=== PATIENT | female | born 1955 | race Caucasian/White ===

== ENCOUNTER 2020-01-09 12:27 | Emergency (ER) | payer BC, SELFPAY ==
[2020-01-09 12:34] VITALS: BP 169/71; PULSE 86; RESP 20; TEMP 36.8; O2SAT 95; BMI 29.7
--- NOTE | 2020-01-09 13:16 | ED.SKABFB ---
HPI - Skin/Abscess/Foreign Bdy General Chief complaint: Skin/Abscess/Foreign Body Stated complaint: rash Time Seen by Provider: 01/09/20 12:43 Source: patient Mode of arrival: ambulatory Limitations: no limitations History of Present Illness HPI narrative: 64 yo female with past medical history of DAVID, HLD, OA, DM here with rash to face x 4 days. Patient initially noticed some burning to the left side her face and then the next day noticed a painful rash on the left side of the face. No flu-like symptoms or fevers or chills or body aches. No vision changes or pain. MD complaint: rash Tetanus up to date: yes Location: face Severity: mild Quality: burning Pain Consistency: constant Relieving factors: none Exacerbating factors: none Context: none Associated symptoms: denies other symptoms Treatments prior to arrival: none Related Data Previous Rx's Medication Instructions Recorded omeprazole 40 mg capsule,delayed 40 mg PO QAM #30 cap 12/24/19 release sitagliptin 100 mg tablet 100 mg PO DAILY #90 tab 01/04/20 valacyclovir [Valtrex] 1,000 mg PO TID 7 Days #21 tab 01/09/20 Allergies Allergy/AdvReac Type Severity Reaction Status Date / Time amoxicillin [AMOXICILLIN] Allergy Intermediate RASH Unverified 12/03/19 15:14 Penicillins [PENICILLINS] Allergy Intermediate RASH Unverified 12/03/19 15:14 sulfamethoxazole Allergy Intermediate RASH Unverified 12/03/19 15:14 [From BACTRIM] trimethoprim [From BACTRIM] Allergy Intermediate RASH Unverified 12/03/19 15:14 penicillin V Allergy Unknown hives Unverified 11/17/19 00:00 Sulfa (Sulfonamide Allergy Unknown RASH, hives Unverified 12/03/19 15:14 Antibiotics) [SULFA (SULFONAMIDE ANTIBIOTICS)] Review of Systems Review of Systems: Yes all other systems are reviewed and are negative Constitutional: Constitutional: Reports no additional constitutional complaints, Denies body ache(s), Denies chills, Denies fever(s), Denies headache(s) and Denies weakness Eyes: Eyes: Reports no additional eye complaints, Denies change in vision, Denies eye discharge, Denies eye pain and Denies photophobia ENT: Reports system reviewed and no additional complaints, except as documented, Denies dizziness, Denies headache(s), Denies nasal congestion, Denies nasal discharge and Denies neck pain Cardiovascular: Cardiovascular: Reports no additional cardiovascular complaints, Denies chest pain, Denies leg edema and Denies dyspnea Respiratory: Respiratory: Reports no additional respiratory complaints, Denies cough and Denies dyspnea Gastrointestinal: Gastrointestinal: Reports no additional gastrointestinal complaints, Denies abdominal pain, Denies diarrhea, Denies nausea and Denies vomiting Genitourinary: Genitourinary: Reports no additional female genitourinary complaints and Denies urinary incontinence Musculoskeletal: Musculoskeletal: Reports no additional musculoskeletal complaints, Denies back pain, Denies arthralgias, Denies joint swelling, Denies neck pain, Denies numbness and Denies tingling Integumentary/Breasts: Skin/Breast: Reports system reviewed and no additional complaints, except as docu and Reports rash Neurologic: Reports system reviewed and no additional complaints, except as documented, Denies Abnormal speech present, Denies dizziness, Denies headache(s), Denies numbness, Denies tingling and Denies weakness [facility] Past Medical History Attestation statement: The following information was validated with the patient. Source: obtained from family and nursing notes reviewed Medical History Anemia Carpal tunnel syndrome of left wrist Colon polyp Diabetes Hyperlipidemia Internal hemorrhoid, bleeding Osteoarthritis Surgical History H/O colonoscopy Tubal ligation status Social History Social History Alcohol intake: never Smoking Status: Never smoker Use of substances other than those prescribed or required for medical reasons: No Advance Directives: No Advance Directives Information Provided: No Physical Exam Vital Signs: Vital Signs: Vital Signs Temp Pulse Resp BP Pulse Ox 01/09/20 12:34 98.2 F 86 20 169/71 H 95 Body Mass Index 29.7 Const: General: cooperative, healthy appearing, comfortable and no acute distress Orientation/consciousness: patient oriented x3 Limitations: no limitations HENMT: Head: Yes normal to inspection Ears: hearing grossly normal bilaterally General nose exam: Normal external nose present Face and sinus: Yes normal facial exam Mouth: Normal oral and palatal mucosa present Throat: Yes posterior oropharynx normal Eyes: Other: see visual acuity documented by nursing. No obvious lesion or ulcer noted. General: appearance normal, both eyes and all related structures Visual Woodard: normal visual woodard by confrontation Alignment and Position: alignment normal Periorbital: periorbital findings normal Eyelids: Yes eyelids normal Conjunctivae: conjunctivae normal Sclerae: sclerae normal Corneas: corneas normal and fluorescein used Pupils: Equal, round and reactive pupils present EOM: EOMs intact bilaterally Direct Ophthalmoscopy: normal light reflex, no photophobia, fundi normal bilaterally, anterior chamber normal and No photophobia Neck: Neck: Yes normal visual inspection Thyroid: solitary palpable nodule ( ) on the left Chest: Chest palpation & inspection: normal inspection of the chest Resp: Effort & Inspection: normal respiratory effort Auscultation: clear to auscultation bilaterally Cardio: Rate: regular rate Rhythm: regular rhythm Peripheral pulses: Peripheral pulses 2+ throughout GI: Inspection: Yes normal to inspection Palpation (GI): Soft to palpation and nontender Auscultation: normal bowel sounds Back/Spine/Pelvis: Thoracic/Lumbar Spine: thoracic and lumbar spine normal to inspection Skin: Other: Along the V1 dermatome there is a vesicle like rash which extends from the left upper eyelid back to the scalp. There is some clear drainage from the lesions. There is no obvious lesions noted around the periorbital area. General skin exam: no rashes or lesions noted Neuro: General: patient oriented x3, no focal motor deficits and normal sensation to monofilament Cranial nerves: Yes Equal, round and reactive pupils present Cognition (Neuro): normal cognition Speech: No Abnormal speech present Gait exam (Neuro): Normal gait present Motor exam (neuro): 5/5 motor strength present throughout Extrem: General: Yes normal to inspection Course Course Course Narrative: Patient has what appears to be herpes zoster on the face which is near the eye but the eyes spared. Normal eye exam and visual acuity. I did review with the patient that she should return to the emergency department immediately if she were to develop vision changes, pain or any visual complaints. Reviewed worrisome signs and symptoms and when to return to the emergency department. Comfortable discharge home. Discharge Plan Discharge Clinical Impression: Herpes zoster Qualifiers: Herpes zoster complications: unspecified herpes zoster complication Qualified Code(s): B02.8 - Zoster with other complications Patient Disposition: Home, Self-Care Instructions: Shingles (ED) Additional Instructions: Keep covered if wounds are draining Return for vision changes or complaints. Prescriptions: New valacyclovir [Valtrex] 1 gram tablet 1,000 mg PO TID 7 Days Qty: 21 RF: 0 No Action omeprazole 40 mg capsule,delayed release(DR/EC) 40 mg PO QAM Qty: 30 RF: 6 sitagliptin [Januvia] 100 mg tablet 100 mg PO DAILY Qty: 90 RF: 2 Referrals: Viviana Randolph MD [Primary Care Provider] - 2 days Stand Alone Forms: Work/School Release Interventions: ED Discharge Assessment Last Done: 01/09/20 13:32 Discharge Date/Time: 01/09/20 13:30
[2020-01-09] MEDS: Tetracaine HCl/PF 0.5% Oph Sol 4 ML DROPS 3 DROP EYE-LEFT (13:32)
[2020-01-09] MEDS: Fluorescein Sodium STRIP 1 STRIP EYE-LEFT (13:32)
== END 2020-01-09 13:30 | disposition home or self-care (01) ==
PROVIDERS: Emergency Provider Emergency Medicine; PCP Internal Medicine
DX: B02.8 Zoster with other complications (principal); R21 Rash and other nonspecific skin eruption; E11.9 Type 2 diabetes mellitus without complications; Z79.899 Other long term (current) drug therapy
CPT/HCPCS: 99283

== ENCOUNTER 2020-01-10 07:44 | Emergency (ER) | payer BC, SELFPAY ==
[2020-01-10 07:58] VITALS: BP 140/55; PULSE 75; RESP 16; TEMP 36.7; O2SAT 98; BMI 42.1
--- NOTE | 2020-01-10 08:08 | PC.NURSE ---
dr cramer at bedside for exam, visual acuity 20/25/left eye 20/30right eye with glasses
--- NOTE | 2020-01-10 08:39 | ED_ITS ---
HPI - Eye Problem General Chief complaint: Eye Problems Stated complaint: swollen eye Time Seen by Provider: 01/10/20 08:01 Source: patient Mode of arrival: ambulatory Limitations: no limitations History of Present Illness HPI Narrative: Patient comes to emergency room complaining of discomfort in her forehead in swelling of her left eye. Patient was diagnosed yesterday with shingles. Patient has no pain with eye movement, patient concerned that the swelling is going around her eye. Patient states she was unable to sleep due to the pain in her face Related Data Previous Rx's Medication Instructions Recorded omeprazole 40 mg capsule,delayed 40 mg PO QAM #30 cap 12/24/19 release sitagliptin 100 mg tablet 100 mg PO DAILY #90 tab 01/04/20 valacyclovir [Valtrex] 1,000 mg PO TID 7 Days #21 tab 01/09/20 gabapentin 100 mg PO TID #20 cap 01/10/20 oxycodone-acetaminophen [Percocet] 1 tab PO Q8H PRN #10 tab 01/10/20 Allergies Allergy/AdvReac Type Severity Reaction Status Date / Time amoxicillin [AMOXICILLIN] Allergy Intermediate RASH Unverified 12/03/19 15:14 Penicillins [PENICILLINS] Allergy Intermediate RASH Unverified 12/03/19 15:14 sulfamethoxazole Allergy Intermediate RASH Unverified 12/03/19 15:14 [From BACTRIM] trimethoprim [From BACTRIM] Allergy Intermediate RASH Unverified 12/03/19 15:14 penicillin V Allergy Unknown hives Unverified 11/17/19 00:00 Sulfa (Sulfonamide Allergy Unknown RASH, hives Unverified 12/03/19 15:14 Antibiotics) [SULFA (SULFONAMIDE ANTIBIOTICS)] Review of Systems Review of Systems: Constitutional : No Weight loss, No Fever, No Chills, No Night Sweats, No Fatigue, No Malaise ENT/Mouth : No Hearing loss, No Ear Pain, No Nasal Congestion, No Sinus Pain, No Hoarseness, No sore throat, No Rhinorrhea, No Swallowing Difficulty Eyes: left eyelid pain Cardiovascular : No Chest Pain, No SOB, No Dyspnea on Exertion, No Orthopnea, No Edema, No Palpitations Respiratory : No Cough, No Sputum, No Wheezing, No Smoke Exposure, No Dyspnea Gastrointestinal : No Nausea, No Vomiting, No Diarrhea, No Constipation, No abdominal Pain, No Hematochezia, No Melena Genitourinary : no irregular bleeding, No Dysuria, No Urinary Frequency, No Hematuria, No Urinary Incontinence, No Urgency, No Flank Pain, No Urinary Flow Changes, No Hesitancy Musculoskeletal : No joint pain, No Myalgias, No Joint Swelling Skin : shingles rash in left forehead Neuro : No Weakness, No Numbness, No Paresthesias, No Loss of Consciousness, No Dizziness, No Headache Psych : No Anxiety/Panic, No Depression, No SI/HI/AH/VH, No Social Issues, Heme/Lymph: No Bruising, No Bleeding,No Lymphadenopathy Endocrine : No Polyuria, No Polydipsia, No Temperature Intolerance [facility] Past Medical History Medical History (Updated 01/10/20 @ 08:58 by Astrid Rodriguez MD) Anemia Carpal tunnel syndrome of left wrist Colon polyp Diabetes Hyperlipidemia Internal hemorrhoid, bleeding Osteoarthritis Shingles Surgical History H/O colonoscopy Tubal ligation status Social History Social History Alcohol intake: never Smoking Status: Never smoker Use of substances other than those prescribed or required for medical reasons: No Advance Directives: No Advance Directives Information Provided: No Physical Exam Vital Signs: Vital Signs: Vital Signs Temp Pulse Resp BP Pulse Ox 01/10/20 07:58 98.1 F 75 16 140/55 H 98 Body Mass Index 42.1 Appearance: Alert. Oriented X3. No acute distress. Eyes: Pupils equal, round and reactive to light. on fluorescein stain exam, no dendritic lesions or ulcers visualized, visual acuity test within normal limits ENT: Pharynx normal. no shingles rash in nose or ear canal Neck: Normal inspection. Neck supple. No lymph nodes noted. No crepitus CVS: Normal heart rate and rhythm. Pulses normal. Normal S1 and S2 Respiratory: No respiratory distress. Breath sounds normal. No Wheezing. No rales Abdomen: Soft and nontender. No rigidity. No distention. good BS x4 Skin: Skin warm and dry. Normal skin color. Normal skin turgor. Extremities: No lower extremity edema. No lower extremity edema. No Lacerations. No Rash Neuro: Oriented X 3. No motor deficit. No sensory deficit. Moving all extermities. No slurred speech. Course Course Course Narrative: I discussed with the patient that unfortunately eyelid swelling is common with facial shingles. I discussed her physical exam an eye exam, patient will follow-up with Dr. Abad, at this time, no concern for eye involvement. 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 Stop taking tramadol. 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 If anything changes with your eyes, Prescriptions: New oxycodone-acetaminophen [Percocet] 5-325 mg tablet 1 tab PO Q8H PRN (Reason: pain) Qty: 10 RF: 0 gabapentin 100 mg capsule 100 mg PO TID Qty: 20 RF: 0 No Action omeprazole 40 mg capsule,delayed release(DR/EC) 40 mg PO QAM Qty: 30 RF: 6 sitagliptin [Januvia] 100 mg tablet 100 mg PO DAILY Qty: 90 RF: 2 valacyclovir [Valtrex] 1 gram tablet 1,000 mg PO TID 7 Days Qty: 21 RF: 0 Referrals: Edilson Abad [Physician] - 2 days Stand Alone Forms: Work/School Release
[2020-01-10] MEDS: Tetracaine HCl/PF 0.5% Oph Sol 4 ML DROPS 3 DROP EYE-BOTH (08:43)
[2020-01-10] MEDS: Fluorescein Sodium STRIP 2 STRIP EYE-BOTH (08:44)
== END 2020-01-10 09:10 | disposition home or self-care (01) ==
PROVIDERS: Emergency Provider Emergency Medicine; PCP Internal Medicine
DX: B02.23 Postherpetic polyneuropathy (principal); E11.9 Type 2 diabetes mellitus without complications; E78.5 Hyperlipidemia, unspecified
CPT/HCPCS: 99283; 99284

== ENCOUNTER 2020-01-14 07:35 | Outpatient (REF) | payer BC, SELFPAY ==
[2020-01-14 11:26] LABS: Hematocrit 22.9 % (37-47); Mean Corpuscular HGB Conc 25.3 g/dl (31.0-35.0); Mean Corpuscular Hemoglobin 19.3 pg (27.0-33.0); Mean Corpuscular Volume 76.3 fL (80-98); Mean Platelet Volume 9.5 fL (9.4-12.3); NRBC Pct Auto 0.8 /100WBC (0.0-0.2); Platelet Count 419 X10*3/uL (160-400); Red Cell Distribution Width 21.3 % (11.0-16.0); White Blood Count 11.1 X10*3/uL (4.8-10.8)
[2020-01-14 11:39] LABS: Estimated Average Glucose 151 mg/dL; Hemoglobin A1c % 6.9 %
[2020-01-14 11:56] LABS: Alanine Aminotransferase 14 U/L (0-31); Anion Gap 16 (12-20); Aspartate Amino Transferase 17 U/L (5-31); Blood Urea Nitrogen 17 mg/dL (9-16); Calcium 8.4 mg/dL (8.4-10.2); Carbon Dioxide 25 mmol/L (22-29); Chloride 100 mmol/L (96-108); Cholesterol 98 mg/dL; Estimated Glomerular Filt Rate > 60; Glucose Fasting 139 mg/dL (60-99); HDL Cholesterol 29 mg/dL; Iron 17 mcg/dL (30-160); LDL Cholesterol Calculated 56 mg/dl; Percent Iron Saturation 4 % (15-50); Potassium 4.5 mmol/l (3.3-5.1); Sodium 136 mmol/L (135-145); Total Iron Binding Capacity 483 mcg/dL (228-428); Triglycerides 69 mg/dL; Unsaturated Iron Binding 466 ug/dL
[2020-01-14 11:59] LABS: Ferritin 2 ng/mL (10-250)
[2020-01-14 12:02] LABS: Hemoglobin 5.8 g/dl (12.0-16.0)
[2020-01-14 12:06] LABS: Folate 17.9 ng/mL (> or = 4.0); Vitamin B12 762 pg/mL (200-900)
== END 2020-01-14 07:36 | disposition home or self-care (01) ==
LOC: HO.HMGCLDS 07:35
PROVIDERS: PCP Internal Medicine; Visit Provider Internal Medicine
DX: D64.9 Anemia, unspecified (principal); E11.65 Type 2 diabetes mellitus with hyperglycemia; E78.5 Hyperlipidemia, unspecified
CPT/HCPCS: 36415; 80048; 80061; 82607; 82728; 82746; 83036; 83540; 84450; 84460; 85027

== ENCOUNTER 2020-01-14 14:50 | Inpatient (IN) | payer BC, SELFPAY ==
[2020-01-14 15:14] VITALS: BP 147/69; PULSE 83; RESP 18; TEMP 36.8; O2SAT 100; BMI 43.1
--- NOTE | 2020-01-14 16:11 | ED.GENADULT ---
HPI - General Adult General Chief complaint: General Medical Stated complaint: abnormal labs Time Seen by Provider: 01/14/20 15:58 Source: patient Mode of arrival: ambulatory Limitations: no limitations History of Present Illness HPI narrative: patient is a 64-year-old female past medical history of anemia, diabetes, HTN, osteoarthritis, hyperlipidemia and depression who presents after her PCP called her to let her know her labs showed she had a hemoglobin of 5.8. patient states she had a similar episode on November 16, her hemoglobin was 7.1 in this emergency department, she was given 1 unit red blood cells and admitted, found to have a normocytic anemia. At that time, her TSH was normal, IVC was elevated and iron, iron saturation and ferritin were all low. GI did an upper endoscopy and a colonoscopy which only showed polyps, diverticulosis and internal hemorrhoids, put her on a PPI and iron. patient states she does not know anything about the PPI but has been taking the iron daily. patient denies had any bleeding, she is postmenopausal. Pt endorses shortness of breath, increased heart rate and getting dizzy when she has positional changes such as bending over. Related Data Home Medications Medication Instructions Recorded Confirmed ferrous sulfate 1 tab PO DAILY 01/14/20 01/14/20 lisinopril 1 tab PO DAILY 01/14/20 01/14/20 metformin 1 tab PO BID 01/14/20 01/14/20 paroxetine HCl 1 tab PO QAM 01/14/20 01/14/20 rosuvastatin 1 tab PO DAILY 01/14/20 01/14/20 sitagliptin [Januvia] 1 tab PO DAILY 01/14/20 01/14/20 Previous Rx's Medication Instructions Recorded omeprazole 40 mg capsule,delayed 40 mg PO QAM #30 cap 12/24/19 release gabapentin 100 mg PO TID #20 cap 01/10/20 Allergies Allergy/AdvReac Type Severity Reaction Status Date / Time amoxicillin [AMOXICILLIN] Allergy Intermediate RASH Verified 01/14/20 15:22 penicillin V Allergy Intermediate hives Verified 01/14/20 15:22 Penicillins [PENICILLINS] Allergy Intermediate RASH Verified 01/14/20 15:22 Sulfa (Sulfonamide Allergy Intermediate RASH, hives Verified 01/14/20 15:22 Antibiotics) [SULFA (SULFONAMIDE ANTIBIOTICS)] sulfamethoxazole Allergy Intermediate RASH Verified 01/14/20 15:22 [From BACTRIM] trimethoprim [From BACTRIM] Allergy Intermediate RASH Verified 01/14/20 15:22 Review of Systems Review of Systems: see [facility] Past Medical History Medical History (Updated 01/14/20 @ 17:25 by Jp Todd MD) Anemia Carpal tunnel syndrome Carpal tunnel syndrome of left wrist Colon polyp Diabetes HTN (hypertension) Hyperlipidemia IBS (irritable bowel syndrome) Internal hemorrhoid, bleeding Osteoarthritis Shingles Surgical History H/O colonoscopy History of carpal tunnel surgery Tubal ligation status Social History Social History Alcohol intake: never Smoking Status: Never smoker Use of substances other than those prescribed or required for medical reasons: No Advance Directives: No Advance Directives Information Provided: No Physical Exam Vital Signs: Vital Signs: Vital Signs Temp Pulse Resp BP Pulse Ox 01/14/20 15:14 98.3 F 83 18 147/69 H 100 Body Mass Index 43.1 Const: General: cooperative, healthy appearing, comfortable and no acute distress Nutritional Appearance: obese Orientation/consciousness: patient oriented x3 Limitations: no limitations HENMT: Head: Yes normal to inspection Neck: Neck: Yes normal visual inspection, Yes full ROM and Yes supple Resp: Effort & Inspection: normal respiratory effort and able to speak in complete sentences Auscultation: clear to auscultation bilaterally, no crackles, no rales, no rhonchi and no wheezes Cardio: Rate: regular rate Rhythm: regular rhythm Heart sounds: S1 normal heart sound present and S2 normal heart sound present GI: Inspection: Yes normal to inspection Palpation (GI): Soft to palpation and nontender Skin: General skin exam: pallor Neuro: General: patient oriented x3 Psych: Appearance: grossly normal Course Course Course Narrative: 64-year-old female with past medical history of anemia, dm 2, HTN, HLD and a recent diagnosis of shingles came into the ER after her primary care doctor did labs which showed her hemoglobin was 5.8. Upon that redraw, it is 6.0. patient denies bleeding, had an outpatient workup EGD and colonoscopy which was negative. Will get labs, EKG, type & screen and give 2U PRBC. Pt signed transfusion authorization. Will need admission. Medical Decision Making Lab Data Lab results reviewed: Yes I reviewed the patient's lab results. Result diagrams: 01/14/20 17:17 01/14/20 17:17 Labs: cbc and chem resulted, as above, remainder of labs pending. Pt to be admitted.
--- NOTE | 2020-01-14 17:12 | P.HPIM_ITS ---
History of Present Illness Date of Service: 01/14/20 Chief Complaint: Anemia, fatigue 64 female, [place] with HTN, diabetes, HLD, HTN, IBS, chronic iron deficiency anemia who presents with symptomatic anemia and hemoglobin of 5. She was admitted to the hospital November 16 with anemia and at that time was transfused and discharged and subsequently underwent workup with EGD and colonoscopy by Dr. Bishop on November 25 and found to have some polyps, internal hemorrhoids, gastritis but no active bleeding was noted. She has since been on iron and PPI. Since that time she continued to be having fatigue, shortness of breath with exertion, and dizziness at time. She had outpatient lab work done and was noted to have hemoglobin of 5 and was told to go to the emergency room by her primary care doctor. She reports no NSAID use. And has not noted any blood in her stool no melena no hematochezia. Of note she was seen in ED on January 09 for shingles. Review of Systems Review of Systems: Gen: no fever, has fatigue Card: no chest pain, but get SOB with exertion GI: no diarrhea, no blood, no melana, Yes all other systems are reviewed and are negative [facility] Medical History (Updated 01/14/20 @ 21:50 by Maryuri Bernal DO) Anemia Carpal tunnel syndrome Carpal tunnel syndrome of left wrist Colon polyp Diabetes HTN (hypertension) Hyperlipidemia IBS (irritable bowel syndrome) Internal hemorrhoid, bleeding Osteoarthritis Shingles Functional capacity: independent ambulation Surgical History H/O colonoscopy History of carpal tunnel surgery Tubal ligation status Social History Household Members: Family Housing: House Alcohol intake: never Smoking Status: Never smoker Use of substances other than those prescribed or required for medical reasons: No Advance Directives: No Advance Directives Information Provided: No Do you have thoughts of harming others: None Meds Allergies Allergy/AdvReac Type Severity Reaction Status Date / Time amoxicillin [AMOXICILLIN] Allergy Intermediate RASH Verified 01/14/20 15:22 penicillin V Allergy Intermediate hives Verified 01/14/20 15:22 Penicillins [PENICILLINS] Allergy Intermediate RASH Verified 01/14/20 15:22 Sulfa (Sulfonamide Allergy Intermediate RASH, hives Verified 01/14/20 15:22 Antibiotics) [SULFA (SULFONAMIDE ANTIBIOTICS)] sulfamethoxazole Allergy Intermediate RASH Verified 01/14/20 15:22 [From BACTRIM] trimethoprim [From BACTRIM] Allergy Intermediate RASH Verified 01/14/20 15:22 Home Medications Medication Instructions Recorded Confirmed Type ferrous sulfate 1 tab PO DAILY 01/14/20 01/14/20 History lisinopril 1 tab PO DAILY 01/14/20 01/14/20 History metformin 1 tab PO BID 01/14/20 01/14/20 History paroxetine HCl 1 tab PO QAM 01/14/20 01/14/20 History rosuvastatin 1 tab PO DAILY 01/14/20 01/14/20 History sitagliptin [Januvia] 1 tab PO DAILY 01/14/20 01/14/20 History Physical Exam Vital Signs and Narrative: Vital Signs: Last Vital Signs Temp 98.3 F 01/14/20 15:14 Pulse 83 01/14/20 15:14 Resp 18 01/14/20 15:14 BP 147/69 H 01/14/20 15:14 Pulse Ox 100 01/14/20 15:14 Body Mass Index 43.1 Constitutional Awake and Alert, No apparent distress Neck Supple, No lymphadenopathy Cardiovascular RRR, No M/R/G, S1 S2, No S3 S4, No pedal edema Respiratory Lungs clear, No respiratory distress Gastrointestinal Non tender, Non-distended. rectal exam deffered Skin No rash Neurological Alert & oriented x3 Psychological Appropriate affect Assessment and Plan (1) Symptomatic anemia: Status: Acute (2) HTN (hypertension): Status: Acute (3) Hyperlipidemia: Status: Acute (4) Diabetes: Status: Acute (5) Shingles: Status: Acute 64 year female with chronic iron deficiency anemia, DM, HTN, HLD, presenting with acute symptomatic anemia with markedly low hemoglobin of 5. 1. Symptomatic iron deficiency anemia--exact source has not been elucidated despited las EGD and colonoscopy -Transfuse -Follow Serial H/H -IV PPI -Will consider IV iron -GI consult again ? need for capsul endoscopy 2. Diabetes--SSI, Hold Metformin for now 3. HTN--continue lisinopril 4. Depression--Paroxetine 5. Shingles--Acyclovir
[2020-01-14 17:25] LABS: MANUAL DIFF FLAG NO
[2020-01-14 17:27] LABS: Basophils Percent Auto 0.2 % (0-2); Eosinophils Absolute Auto 0.1 X10*3/uL (0.0-0.4); Hematocrit 23.2 % (37-47); Imm Gran Abs Auto 0.15 X10*3/uL (0.00-0.03); Imm Gran Pct Auto 1.1 % (0.0-0.4); Immature Retic Fraction 38.4 % (3.0-15.9); Lymphocytes Percent Auto 29.8 % (20-40); Mean Corpuscular HGB Conc 25.9 g/dl (31.0-35.0); Mean Corpuscular Hemoglobin 19.6 pg (27.0-33.0); Mean Corpuscular Volume 75.8 fL (80-98); Mean Platelet Volume 9.3 fL (9.4-12.3); Monocytes Absolute Auto 1.1 X10*3/uL (0.1-1.2); NRBC Pct Auto 0.8 /100WBC (0.0-0.2); Neutrophils Percent Auto 59.9 % (45-73); Platelet Count 437 X10*3/uL (160-400); Red Blood Count 3.06 X10*6/uL (4.20-5.50); Red Cell Distribution Width 21.2 % (11.0-16.0); Retic HGB Equivalent 15.2 pg (30.0-35.0); Reticulocyte Percent 2.6 % (0.5-1.8); Reticulocytes Absolute 0.079 X10*6/uL (0.026-0.095); White Blood Count 13.3 X10*3/uL (4.8-10.8)
[2020-01-14] MEDS: Sodium Chloride 0.45 % 1,000 ML 100 ML IVCONT (17:29)
[2020-01-14 17:53] LABS: Alanine Aminotransferase 15 U/L (0-31); Albumin Level 3.9 g/dL (3.5-5.0); Alkaline Phosphatase 138 U/L (39-117); Anion Gap 17 (12-20); Aspartate Amino Transferase 24 U/L (5-31); Bilirubin Direct 0.3 mg/dL (0.0-0.5); Bilirubin Total 0.9 mg/dL (0.0-1.0); Blood Urea Nitrogen 15 mg/dL (9-16); Carbon Dioxide 23 mmol/L (22-29); Chloride 102 mmol/L (96-108); Creatinine Clr Calc Pharmacy 111.2; Estimated Glomerular Filt Rate > 60; Glucose Random 109 mg/dL (60-115); Potassium 4.9 mmol/l (3.3-5.1); Sodium 137 mmol/L (135-145); Total Protein 7.4 g/dL (6.5-8.0)
[2020-01-14 18:14] LABS: Ferritin 2 ng/mL (10-250); TSH reflex Free T4 2.09 mIU/mL (0.32-4.0)
[2020-01-14 19:29] LABS: Erythrocyte Sedimentation Rate 45 MM/HR (0-20)
--- NOTE | 2020-01-14 19:53 | PC.NURSE ---
PT REPORT GIVEN TO FLOOR. CONSENT FOR BLOOD SIGNED. WILL START BLOOD BEFORE PT TRANSFERRED TO FLOOR.
[2020-01-14 20:05] LABS: Vitamin B12 773 pg/mL (200-900)
[2020-01-14 20:07] VITALS: BP 141/68; PULSE 84; RESP 16; TEMP 36.4
[2020-01-14 20:23] VITALS: BP 137/72; PULSE 87; RESP 16; TEMP 37.1
[2020-01-14 21:17] VITALS: BP 147/72; PULSE 85; RESP 19; TEMP 36.6; O2SAT 95
[2020-01-14 21:49] LABS: SARS COV2 PCR INHOUSE NEGATIVE (Negative)
[2020-01-14 22:02] VITALS: BP 160/81; PULSE 85; RESP 18; TEMP 36.4
[2020-01-14] MEDS: Pantoprazole Sodium 40 MG/10 ML VIAL IVPUSH (22:14)
[2020-01-14] MEDS: Gabapentin 100 MG CAPSULE PO (22:24)
[2020-01-14] MEDS: metFORMIN HCl 1,000 MG TABLET 1000 MG PO (22:25)
[2020-01-14] MEDS: Omeprazole 40 MG CAPSULE.DR PO (22:25)
[2020-01-14 22:33] LABS: Glucose, Whole Blood 141 mg/dL (60-115)
[2020-01-15] VITALS (7 sets, daily range): BP systolic 132–157; BP diastolic 56–77; PULSE 70–82; RESP 17–19; TEMP 36.2–37.2; O2SAT 93–96; BMI 43.1
[2020-01-15] MEDS: Acetaminophen 325 MG TABLET 650 MG PO ×2 (03:35→22:03)
[2020-01-15] MEDS: Sodium Chloride 0.45 % 1,000 ML 100 ML IVCONT (04:52)
[2020-01-15 07:25] LABS: Glucose, Whole Blood 116 mg/dL (60-115)
--- NOTE | 2020-01-15 09:27 | PM.DS ---
DS: Providers Provider Date of admission: 01/14/20 17:08 Primary care physician: Viviana Randolph MD Consults: 01/14/20 17:43 Consult to Gastroenterology Routine Consulting Provider: Matias Bishop Reason for consultation: Iron deficiency anemia Has provider been notified: Yes DS: Diagnosis Discharge Diagnosis (1) Symptomatic anemia: Status: Acute (2) HTN (hypertension): (3) Hyperlipidemia: (4) Diabetes: (5) Shingles: Status: Acute DS: Summary Hospital Course Hospital Course: HPI:64 female, obesse with HTN, diabetes, HLD, HTN, IBS, chronic iron deficiency anemia who presents with symptomatic anemia and hemoglobin of 5. She was admitted to the hospital November 16 with anemia and at that time was transfused and discharged and subsequently underwent workup with EGD and colonoscopy by Dr. Bishop on November 25 and found to have some polyps, internal hemorrhoids, gastritis but no active bleeding was noted. She has since been on iron and PPI. Since that time she continued to be having fatigue, shortness of breath with exertion, and dizziness at time. She had outpatient lab work done and was noted to have hemoglobin of 5 and was told to go to the emergency room by her primary care doctor. She reports no NSAID use. And has not noted any blood in her stool no melena no hematochezia. Of note she was seen in ED on January 09 for shingles. Hospital course: She Was essentially admitted for symptomatic anemia that has been ongoing on for quite some time and had previous workup without any definitive source of a bleed. Patient was admitted transfuse with RBCs repeat H&H is improved. she underwent repeat egd and colonoscopy, working etiology is hemmerhoids, she will start anusol and follow up surgery Status at Discharge Functional status at discharge: independent ambulation Time Spent with Patient Time attestation: Total time spent providing and/or coordinating discharge services: Time spent: Greater than 30 minutes Physical Exam Vital Signs: Vital Signs: Vital Signs Temp Pulse Resp BP Pulse Ox 01/15/20 07:22 97.2 F 70 17 138/63 96 01/15/20 03:49 98.7 F 76 18 142/76 H 94 01/14/20 22:02 97.5 F 85 18 160/81 H 01/14/20 21:17 97.8 F 85 19 147/72 H 95 01/14/20 20:23 98.7 F 87 16 137/72 01/14/20 20:07 97.5 F 84 16 141/68 H 01/14/20 15:14 98.3 F 83 18 147/69 H 100 Body Mass Index 43.1 Constitutional Awake and Alert, No apparent distress Neck Supple, No lymphadenopathy Cardiovascular RRR, No M/R/G, S1 S2, No S3 S4, No pedal edema Respiratory Lungs clear, No respiratory distress Gastrointestinal Non tender, Non-distended Skin No rash Neurological Alert & oriented x3 Psychological Appropriate affect DS: Data Data Completed and Pending Labs on day of discharge: Labs from last 24 hours 01/15/20 01/14/20 01/14/20 07:10 22:28 20:23 WBC RBC Hgb Hct MCV MCH MCHC RDW Plt Count MPV Immature Gran % (Auto) Neut % (Auto) Lymph % (Auto) [place] % (Auto) Eos % (Auto) Baso % (Auto) Lymph # (Auto) [place] # (Auto) Eos # (Auto) Baso # (Auto) Abs Immat Gran (auto) Absolute Neuts (auto) Absolute Nucleated RBC Nucleated RBC % (auto) ESR Absolute Retic Percent Retic Immature Retic Fraction Retic Hgb Equivalent Haptoglobin Sodium Potassium Chloride Carbon Dioxide Anion Gap BUN Creatinine Estim Creat Clear Calc Estimated GFR POC Glucose 116 H 141 H Random Glucose Calcium Ferritin Total Bilirubin Direct Bilirubin AST ALT Alkaline Phosphatase C-Reactive Protein Total Protein Albumin Vitamin B12 TSH TSH Receptor Ab Coronavirus (PCR) NEGATIVE Blood Type Antibody Screen Crossmatch 01/14/20 01/14/20 01/14/20 18:19 17:17 17:17 WBC RBC Hgb Hct MCV MCH MCHC RDW Plt Count MPV Immature Gran % (Auto) Neut % (Auto) Lymph % (Auto) [place] % (Auto) Eos % (Auto) Baso % (Auto) Lymph # (Auto) [place] # (Auto) Eos # (Auto) Baso # (Auto) Abs Immat Gran (auto) Absolute Neuts (auto) Absolute Nucleated RBC Nucleated RBC % (auto) ESR Absolute Retic Percent Retic Immature Retic Fraction Retic Hgb Equivalent Haptoglobin Sodium Potassium Chloride Carbon Dioxide Anion Gap BUN Creatinine Estim Creat Clear Calc Estimated GFR POC Glucose Random Glucose Calcium Ferritin Total Bilirubin Direct Bilirubin AST ALT Alkaline Phosphatase C-Reactive Protein Total Protein Albumin Vitamin B12 773 TSH TSH Receptor Ab Pending Coronavirus (PCR) Blood Type O Positive Antibody Screen NEGATIVE Crossmatch See Detail 01/14/20 01/14/20 01/14/20 17:17 17:17 17:17 WBC RBC Hgb Hct MCV MCH MCHC RDW Plt Count MPV Immature Gran % (Auto) Neut % (Auto) Lymph % (Auto) [place] % (Auto) Eos % (Auto) Baso % (Auto) Lymph # (Auto) [place] # (Auto) Eos # (Auto) Baso # (Auto) Abs Immat Gran (auto) Absolute Neuts (auto) Absolute Nucleated RBC Nucleated RBC % (auto) ESR Absolute Retic Percent Retic Immature Retic Fraction Retic Hgb Equivalent Haptoglobin Pending Sodium 137 Potassium 4.9 Chloride 102 Carbon Dioxide 23 Anion Gap 17 BUN 15 Creatinine 0.61 Estim Creat Clear Calc 111.2 Estimated GFR > 60 POC Glucose Random Glucose 109 Calcium 9.0 Ferritin 2 L Total Bilirubin 0.9 Direct Bilirubin 0.3 AST 24 D ALT 15 Alkaline Phosphatase 138 H C-Reactive Protein 0.40 Total Protein 7.4 Albumin 3.9 Vitamin B12 TSH 2.09 TSH Receptor Ab Coronavirus (PCR) Blood Type Antibody Screen Crossmatch 01/14/20 01/14/20 17:17 17:17 WBC 13.3 H RBC 3.06 L Hgb 6.0 L* Hct 23.2 L MCV 75.8 L MCH 19.6 L MCHC 25.9 L RDW 21.2 H Plt Count 437 H MPV 9.3 L Immature Gran % (Auto) 1.1 H Neut % (Auto) 59.9 Lymph % (Auto) 29.8 [place] % (Auto) 8.0 Eos % (Auto) 1.0 Baso % (Auto) 0.2 Lymph # (Auto) 4.0 [place] # (Auto) 1.1 Eos # (Auto) 0.1 Baso # (Auto) 0.0 Abs Immat Gran (auto) 0.15 H Absolute Neuts (auto) 8.0 Absolute Nucleated RBC 0.100 H Nucleated RBC % (auto) 0.8 H ESR 45 H Absolute Retic 0.079 Percent Retic 2.6 H Immature Retic Fraction 38.4 H Retic Hgb Equivalent 15.2 L Haptoglobin Sodium Potassium Chloride Carbon Dioxide Anion Gap BUN Creatinine Estim Creat Clear Calc Estimated GFR POC Glucose Random Glucose Calcium Ferritin Total Bilirubin Direct Bilirubin AST ALT Alkaline Phosphatase C-Reactive Protein Total Protein Albumin Vitamin B12 TSH TSH Receptor Ab Coronavirus (PCR) Blood Type Antibody Screen Crossmatch Discharge Plan Discharge Patient Disposition: Home, Self-Care Referrals: Viviana Randolph MD [Primary Care Provider] - Karan Torres MD [Physician] - 1 Week (hemmeroids) Discharge Medications: New hydrocortisone acetate [Anusol-HC] 25 mg suppository 25 mg MT BEDTIME Qty: 12 RF: 0 Continued omeprazole 40 mg capsule,delayed release(DR/EC) 40 mg PO QAM Qty: 30 RF: 6 gabapentin 100 mg capsule 100 mg PO TID Qty: 20 RF: 0 metformin 1,000 mg tablet 1 tab PO BID RF: 0 paroxetine HCl 25 mg tablet extended release 24 hr 1 tab PO QAM RF: 0 rosuvastatin 5 mg tablet 1 tab PO DAILY RF: 0 Januvia 100 mg tablet 1 tab PO DAILY RF: 0 ferrous sulfate 324 mg (65 mg iron) tablet,delayed release (DR/EC) 1 tab PO DAILY RF: 0 Held lisinopril 10 mg tablet 10 mg PO DAILY Qty: 30 RF: 6 Hold Instructions: Resume on 01/25/20. hyperkalemia, check bmp before restarting Discharge Orders: Discharge Order (Routine); Ordered 01/18/20 Ordered By: Jacques Sawyer Diet: advance to your usual diet Activity on Discharge: As tolerated Stand Alone Forms: Work/School Release Discharge Date/Time: 01/18/20 14:29 Visit Report Forms: Patient Portal Discharge page Care Plan Goals: recovery Health Concerns: anemia Plan of Treatment: start anusol, follow up suregery, continue iron
[2020-01-15] MEDS: SITagliptin Phosphate 100 MG TABLET PO (09:51)
[2020-01-15] MEDS: Gabapentin 100 MG CAPSULE PO ×3 (09:52→22:03)
[2020-01-15] MEDS: Atorvastatin Calcium 20 MG TABLET PO (09:52)
[2020-01-15] MEDS: metFORMIN HCl 1,000 MG TABLET 1000 MG PO ×2 (09:52→22:03)
[2020-01-15] MEDS: PARoxetine HCL 30 MG TABLET PO (09:52)
[2020-01-15] MEDS: Ferrous Sulfate 324 MG TABLET.DR PO (09:52)
[2020-01-15] MEDS: Omeprazole 40 MG CAPSULE.DR PO (09:53)
--- NOTE | 2020-01-15 11:04 | MHC.CM.PN ---
nurse ambulatory care nurse note electronic medical record reviewed along with case discussed with staff nurse ,patient is aware she will be discharged today discharge plan home with no services transportation patient to set up pcp- patient to call for followuup post hospitla discharge
[2020-01-15 11:42] LABS: Glucose, Whole Blood 116 mg/dL (60-115)
[2020-01-15 12:00] LABS: Hematocrit 24.1 % (37-47); Mean Corpuscular HGB Conc 26.6 g/dl (31.0-35.0); Mean Corpuscular Hemoglobin 20.3 pg (27.0-33.0); Mean Corpuscular Volume 76.3 fL (80-98); Mean Platelet Volume 9.1 fL (9.4-12.3); NRBC Pct Auto 0.5 /100WBC (0.0-0.2); Platelet Count 396 X10*3/uL (160-400); Red Blood Count 3.16 X10*6/uL (4.20-5.50); Red Cell Distribution Width 21.8 % (11.0-16.0); White Blood Count 9.8 X10*3/uL (4.8-10.8)
[2020-01-15 12:09] LABS: Hemoglobin 6.4 g/dl (12.0-16.0)
--- NOTE | 2020-01-15 12:20 | NM_ITS ---
EXAMINATION: NM TC RBC GI BLEEDING CLINICAL INFORMATION: Deficiency anemia, active bleeding in stool.. PROCEDURE: Following the sequential intravenous administration of 2.8 mL stannous pyrophosphate and 25 mCi Tc-99m pertechnetate, sequential static images of the abdomen were obtained using a gamma scintillation camera total observation 60 minutes. COMPARISON: No previous bleeding study is available for comparison. FINDINGS: No abnormal accumulations of radioisotope are seen in the abdomen. NM/NM GI bleeding IMPRESSION: No gastrointestinal bleeding is identified.
[2020-01-15 12:31] LABS: OBS Int Ctl Valid YES; OBS1 NEG (NEG)
--- NOTE | 2020-01-15 12:44 | MHC.CM.PN ---
NURSES PODOPEDIATRICIAN NOTE ELECTRONIC MEDICAL RECORD REVIEWED , CASE DISCUSSED WITH STAFF NURSE AND ON MULTIPLE DISCIPLAINRY ROUNDS MET WITHN PATIENT , SHE REPORTED THAT SHE HAS BEEN ACTIVE AND INDEPENDENT IN ALL ADLS AND MOBILTIY SHE WORKS FUL TIME ,SHE SAW HER PPC IN BECAUSE OF SOEM INCREASE IN TIREDNESS, SHE RECENTLY HAS BLOOD WORK DRAWN AND RECIVED A CALL TO COME TO THE ER, SHE RECIVED A BLOOD TRANSFSUION AND WAS ADMITTED WITH THE DIAGNSOIS OF SYMPTOMATICC ANEMIA. DISCHARGE PLAN HOME WITH ANTICIPATED NO SERVICES PCP PATIENT TO CALL HER PCP FOR POST HOSPITAL DISCHARGE TRANSPORTATION PATIENT TO SELF ARRANGE
[2020-01-15] MEDS: 0.9 % Sodium Chloride Flush 3 ML SYRINGE IVFLUSH (16:23)
--- NOTE | 2020-01-15 16:40 | P.CNGI_ITS ---
History of Present Illness Data of Consult Service Date: 01/15/20 Requesting physician: Jp Todd Primary Care Provider: Viviana Randolph MD HPI Reason for consult: anemia 64 female, w hx of HTN, diabetes, HLD, HTN, IBS, chronic iron deficiency anemia who I am asked to see for evaluation of worsening of her chronic anemia. She has been having fatigue and exertional sob for the last several weeks, and had hgb check by pcp which revealed HGB of 5 g/dl. This is inspite of being on iron treatment. She denies any overt Gi bleeding, melena, or BRBPR, no epistaxis, vaginal ble eding or hematuria. She also denies abdominal pain. Rectal exam done by Dr Todd apparently stool looked dark, possibly melenic but hard not tarry,k patient still n iron. She received blood transfusion but HGB never really appropriately incremented. She had underwent workup with EGD and colonoscopy on November 25 and found to have some polyps, internal hemorrhoids, gastritis but no active bleeding was noted. She also had capsule endoscopy with no bleeding or lesions seen. Review of Systems Review of Systems: Yes all other systems are reviewed and are negative [facility] Past Medical History Medical History (Updated 01/14/20 @ 21:50 by Maryuri Bernal DO) Anemia Carpal tunnel syndrome Carpal tunnel syndrome of left wrist Colon polyp Diabetes HTN (hypertension) Hyperlipidemia IBS (irritable bowel syndrome) Internal hemorrhoid, bleeding Osteoarthritis Shingles Functional capacity: independent ambulation Surgical History Surgical History H/O colonoscopy History of carpal tunnel surgery Tubal ligation status Social History Social History Household Members: Family Housing: House Alcohol intake: never Smoking Status: Never smoker Use of substances other than those prescribed or required for medical reasons: No Advance Directives: No Advance Directives Information Provided: No Do you have thoughts of harming others: None service: No Current occupational status: employed Meds Allergies Allergy/AdvReac Type Severity Reaction Status Date / Time amoxicillin [AMOXICILLIN] Allergy Intermediate RASH Verified 01/14/20 15:22 penicillin V Allergy Intermediate hives Verified 01/14/20 15:22 Penicillins [PENICILLINS] Allergy Intermediate RASH Verified 01/14/20 15:22 Sulfa (Sulfonamide Allergy Intermediate RASH, hives Verified 01/14/20 15:22 Antibiotics) [SULFA (SULFONAMIDE ANTIBIOTICS)] sulfamethoxazole Allergy Intermediate RASH Verified 01/14/20 15:22 [From BACTRIM] trimethoprim [From BACTRIM] Allergy Intermediate RASH Verified 01/14/20 15:22 Home Medications Medication Instructions Recorded Confirmed Type ferrous sulfate 1 tab PO DAILY 01/14/20 01/14/20 History lisinopril 1 tab PO DAILY 01/14/20 01/14/20 History metformin 1 tab PO BID 01/14/20 01/14/20 History paroxetine HCl 1 tab PO QAM 01/14/20 01/14/20 History rosuvastatin 1 tab PO DAILY 01/14/20 01/14/20 History sitagliptin [Januvia] 1 tab PO DAILY 01/14/20 01/14/20 History Physical Exam Vital Signs: Vital Signs: Vital Signs Temp Pulse Resp BP Pulse Ox 01/15/20 07:22 97.2 F 70 17 138/63 96 01/15/20 03:49 98.7 F 76 18 142/76 H 94 01/14/20 22:02 97.5 F 85 18 160/81 H 01/14/20 21:17 97.8 F 85 19 147/72 H 95 01/14/20 20:23 98.7 F 87 16 137/72 01/14/20 20:07 97.5 F 84 16 141/68 H Body Mass Index 43.1 Const: General: cooperative, healthy appearing, comfortable and no acute distress Nutritional Appearance: obese Orientation/consciousness: patient oriented x3 Limitations: no limitations HENMT: Head: Yes normal to inspection Neck: Neck: Yes normal visual inspection, Yes full ROM and Yes supple Resp: Effort & Inspection: normal respiratory effort and able to speak in complete sentences Auscultation: clear to auscultation bilaterally, no crackles, no rales, no rhonchi and no wheezes Cardio: Rate: regular rate Rhythm: regular rhythm Heart sounds: S1 normal heart sound present and S2 normal heart sound present GI: Inspection: Yes normal to inspection Palpation (GI): Soft to palpation and nontender Skin: Other: vesicular rash on left forehead General skin exam: pallor Neuro: General: patient oriented x3 Psych: Appearance: grossly normal Results Labs CBC & Chem 7: 01/15/20 11:22 01/14/20 17:17 Labs: Short CBC 01/14/20 01/15/20 Range/Units 17:17 11:22 WBC 13.3 H 9.8 (4.8-10.8) X10*3/uL Hgb 6.0 L* 6.4 L* (12.0-16.0) g/dl Hct 23.2 L 24.1 L (37-47) % Plt Count 437 H 396 (160-400) X10*3/uL BMP 01/14/20 17:17 Sodium 137 Potassium 4.9 Chloride 102 Carbon Dioxide 23 BUN 15 Creatinine 0.61 Calcium 9.0 Liver Function 01/14/20 Range/Units 17:17 Total Bilirubin 0.9 (0.0-1.0) mg/dL Direct Bilirubin 0.3 (0.0-0.5) mg/dL AST 24 D (5-31) U/L ALT 15 (0-31) U/L Alkaline Phosphatase 138 H (39-117) U/L Albumin 3.9 (3.5-5.0) g/dL Assessment and Plan (1) Symptomatic anemia: Status: Acute 1/ Acute on chronic iron def anemia without overt blood loss, hard to int erpret rectal exam findings in context of iron use bruce with hard stool and not the typical tarry stool of melenic bleeding. She could have occult blood loss possibly from dieulafoy lesion or AVM, endoscopy has not revealed any ulcers or mass lesions previously. PLAN: 1/ await hemolysis work up 2/ Nuc bleeding scan 3/ transfuse further, if fails to increment and bleeding scan neg then may need repeat EGD at least, obviously if scan pos then may need either egd or colonoscopy I am not available this weekend, patient signed out to Dr Huerta.
[2020-01-15 17:07] LABS: Glucose, Whole Blood 125 mg/dL (60-115)
[2020-01-15 21:06] LABS: Glucose, Whole Blood 146 mg/dL (60-115)
[2020-01-15] MEDS: lisinopriL 10 MG TABLET PO (22:03)
[2020-01-16] VITALS (8 sets, daily range): BP systolic 146–170; BP diastolic 65–86; PULSE 68–78; RESP 18–20; TEMP 36–37; O2SAT 94–97
[2020-01-16] MEDS: 0.9 % Sodium Chloride Flush 3 ML SYRINGE IVFLUSH (00:33)
[2020-01-16] MEDS: Sodium Chloride 0.45 % 1,000 ML 100 ML IVCONT ×2 (01:14→15:37)
[2020-01-16 07:35] LABS: Hematocrit 27.9 % (37-47); Hemoglobin 7.6 g/dl (12.0-16.0); Mean Corpuscular HGB Conc 27.2 g/dl (31.0-35.0); Mean Corpuscular Hemoglobin 21.4 pg (27.0-33.0); Mean Corpuscular Volume 78.6 fL (80-98); Mean Platelet Volume 9.2 fL (9.4-12.3); NRBC Pct Auto 0.5 /100WBC (0.0-0.2); Platelet Count 363 X10*3/uL (160-400); Red Blood Count 3.55 X10*6/uL (4.20-5.50); Red Cell Distribution Width 21.7 % (11.0-16.0)
[2020-01-16 08:07] LABS: Anion Gap 14 (12-20); Blood Urea Nitrogen 15 mg/dL (9-16); Calcium 8.5 mg/dL (8.4-10.2); Carbon Dioxide 25 mmol/L (22-29); Chloride 102 mmol/L (96-108); Creatinine Clr Calc Pharmacy 109.4; Estimated Glomerular Filt Rate > 60; Glucose Random 130 mg/dL (60-115); Potassium 4.1 mmol/l (3.3-5.1); Sodium 137 mmol/L (135-145)
[2020-01-16] MEDS: metFORMIN HCl 1,000 MG TABLET 1000 MG PO ×2 (08:30→21:36)
[2020-01-16] MEDS: PARoxetine HCL 30 MG TABLET PO (08:30)
[2020-01-16] MEDS: Ferrous Sulfate 324 MG TABLET.DR PO (08:30)
[2020-01-16] MEDS: SITagliptin Phosphate 100 MG TABLET PO (08:31)
[2020-01-16] MEDS: Omeprazole 40 MG CAPSULE.DR PO (08:31)
[2020-01-16] MEDS: Atorvastatin Calcium 20 MG TABLET PO (08:31)
[2020-01-16] MEDS: Gabapentin 100 MG CAPSULE PO ×3 (08:31→19:54)
[2020-01-16 08:46] LABS: Glucose, Whole Blood 191 mg/dL (60-115)
--- NOTE | 2020-01-16 09:50 | HO.PM.IMPN ---
Subjective Subjective Date of Service: 01/16/20 Interval History: Seen in follow up for GIB, acute blood loss anemia. Feel a bit more energetic with transfusion. No rectal bleeding. Review of Systems Gen: no fever Resp: no sob, no cough CV: no chest, no RAMOS, no leg edema GI: No n/v, no abd pain, no blood in stool Neuro: No confusion Physical Exam Vital Signs: Vital Signs: Vital Signs Temp Pulse Resp BP Pulse Ox 01/16/20 08:00 98.3 F 70 19 97 01/16/20 01:05 96.8 F 73 20 148/65 H 01/15/20 23:10 99.0 F 82 19 156/74 H 01/15/20 22:55 98.8 F 82 19 157/77 H 01/15/20 19:15 98.8 F 78 18 132/56 L 01/15/20 19:01 97.8 F 77 18 154/71 H 01/15/20 18:27 97.8 F 77 18 154/71 H 93 Body Mass Index 43.1 General: AO X 3, no acute distress Resp: CTA bilateral CVS: S1,S2,RRR GI: +BS, NT, no distention, rectal exam 01/14, dark brown stool + guiac at bed side Skin: No rash Neuro: motor grossly intact Psych: appropriate affect Objective Data Current Medications Generic Name Dose Route Start Last Admin Trade Name Freq PRN Reason Stop Dose Admin Acetaminophen 650 mg 01/15/20 03:07 01/15/20 22:03 Acetaminophen 325 Mg Tablet PO 650 mg Q6H PRN Administration Pain and Fever Atorvastatin Calcium 20 mg 01/15/20 09:00 01/16/20 08:31 Atorvastatin Calcium 20 Mg Tablet PO 20 mg DAILY ADONIS Administration Ferrous Sulfate 324 mg 01/15/20 09:00 01/16/20 08:30 Ferrous Sulfate 324 Mg Tablet.Dr PO 324 mg DAILY ADONIS Administration Gabapentin 100 mg 01/14/20 21:25 01/16/20 08:31 Gabapentin 100 Mg Capsule PO 100 mg TID ADONIS Administration Sodium Chloride 1,000 mls @ 100 mls/hr 01/14/20 17:15 01/16/20 08:31 IVCONT Not Given .Q10H ADONIS Lisinopril 10 mg 01/15/20 21:00 01/15/20 22:03 Lisinopril 10 Mg Tablet PO 10 mg BEDTIME ADONIS Administration Protocol Metformin HCl 1,000 mg 01/14/20 21:25 01/16/20 08:30 Metformin Hcl 1,000 Mg Tablet PO 1,000 mg BID ADONIS Administration Omeprazole 40 mg 01/14/20 21:25 01/16/20 08:31 Omeprazole 40 Mg Capsule. PO 40 mg DAILY ADONIS Administration Paroxetine HCl 30 mg 01/15/20 09:00 01/16/20 08:30 Paroxetine Hcl 30 Mg Tablet PO 30 mg DAILY ADONIS Administration Pharmacy Consult 1 each 01/14/20 18:16 Consult Rx Perform Med Rec MISCELLANE ONCE PRN Consult order Sitagliptin Phosphate 100 mg 01/15/20 09:00 01/16/20 08:31 Sitagliptin Phosphate 100 Mg Tablet PO 100 mg DAILY ADONIS Administration Sodium Chloride 3 ml 01/15/20 00:00 01/16/20 08:31 0.9 % Sodium Chloride Flush 3 Ml Syringe IVFLUSH Not Given QSHIFT [facility] Labs CBC & Chem 7: 01/16/20 07:08 01/16/20 07:08 Assessment and Plan (1) Symptomatic anemia: Status: Acute (2) HTN (hypertension): Status: Acute (3) Hyperlipidemia: Status: Acute (4) Diabetes: Status: Acute (5) Shingles: Status: Acute Assessment and Plan: 64 year female with chronic iron deficiency anemia, DM, HTN, HLD, presenting with acute symptomatic anemia with markedly low hemoglobin of 5. 1. Symptomatic iron deficiency anemia--exact source has not been elucidated despited las EGD and colonoscopy. + occult blood, Bleeding scan 01/14 negative. -haptoglobin is pening, LDH pending--no evidence of hemolysis -Transfused 5 units thus far with hgb tredning from 5.8 (01/13) to 7.6 today (01/15) -Transfuse 1 more unit today -Follow Serial H/H -IV PPI -GI is planning EGD +/- colonoscopy on Wednesday 01/17 2. Diabetes--continue Metformin, Sitagliptin, 3. HTN--continue lisinopril 4. Depression--Paroxetine 5. Shingles--old, Gabapenting for pain
[2020-01-16 12:46] LABS: Glucose, Whole Blood 87 mg/dL (60-115)
[2020-01-16 18:09] LABS: Glucose, Whole Blood 134 mg/dL (60-115)
[2020-01-16 20:55] LABS: Glucose, Whole Blood 117 mg/dL (60-115)
[2020-01-16] MEDS: Acetaminophen 325 MG TABLET 650 MG PO (21:35)
[2020-01-16] MEDS: lisinopriL 10 MG TABLET PO (21:38)
[2020-01-17] MEDS: Sodium Chloride 0.45 % 1,000 ML 100 ML IVCONT ×2 (01:23→10:53)
[2020-01-17 07:10] LABS: Hematocrit 29.6 % (37-47); Hemoglobin 8.2 g/dl (12.0-16.0); Mean Corpuscular HGB Conc 27.7 g/dl (31.0-35.0); Mean Corpuscular Hemoglobin 22.2 pg (27.0-33.0); Mean Corpuscular Volume 80.2 fL (80-98); Mean Platelet Volume 9.1 fL (9.4-12.3); NRBC Pct Auto 0.2 /100WBC (0.0-0.2); Platelet Count 369 X10*3/uL (160-400); Red Blood Count 3.69 X10*6/uL (4.20-5.50); White Blood Count 12.4 X10*3/uL (4.8-10.8)
[2020-01-17 08:00] VITALS: BP 147/64; PULSE 64; RESP 18; TEMP 36.4; O2SAT 93
[2020-01-17 08:24] LABS: Glucose, Whole Blood 104 mg/dL (60-115)
[2020-01-17] MEDS: PARoxetine HCL 30 MG TABLET PO (08:24)
[2020-01-17] MEDS: Ferrous Sulfate 324 MG TABLET.DR PO (08:24)
[2020-01-17] MEDS: SITagliptin Phosphate 100 MG TABLET PO (08:24)
[2020-01-17] MEDS: metFORMIN HCl 1,000 MG TABLET 1000 MG PO ×2 (08:24→20:57)
[2020-01-17] MEDS: Atorvastatin Calcium 20 MG TABLET PO (08:24)
[2020-01-17] MEDS: Omeprazole 40 MG CAPSULE.DR PO (08:24)
[2020-01-17] MEDS: 0.9 % Sodium Chloride Flush 3 ML SYRINGE IVFLUSH ×2 (08:24→22:54)
[2020-01-17] MEDS: Gabapentin 100 MG CAPSULE PO ×3 (08:24→20:04)
--- NOTE | 2020-01-17 11:11 | MHC.CM.PN ---
CASE MANAGEMENT CONTINUING TO FOLLOW FOR DISCHARGE. CURRENT PLAN IS HOME WITH NO SERVICES UPON DISCHARGE.
[2020-01-17 12:31] LABS: Glucose, Whole Blood 112 mg/dL (60-115)
--- NOTE | 2020-01-17 13:40 | HO.PM.IMPN ---
Subjective Subjective Date of Service: 01/17/20 Interval History: feeling much better after transfusion Cardiovascular Cardiovascular: Reports no additional cardiovascular complaints Respiratory Respiratory: Reports no additional respiratory complaints Physical Exam Vital Signs: Vital Signs: Vital Signs Temp Pulse Resp BP Pulse Ox 01/17/20 08:00 97.6 F 64 18 147/64 H 93 01/16/20 23:08 98.6 F 78 19 157/67 H 94 01/16/20 21:38 74 147/76 H 01/16/20 15:32 98.2 F 75 18 146/65 H 95 01/16/20 15:30 98.2 F 75 18 146/65 H Body Mass Index 43.1 General: AO X 3, no acute distress Resp: CTA bilateral CVS: S1,S2,RRR GI: soft, non tender, non distended Neuro: motor grossly intact Psych: appropriate affect Objective Data Current Medications Generic Name Dose Route Start Last Admin Trade Name Freq PRN Reason Stop Dose Admin Acetaminophen 650 mg 01/15/20 03:07 01/16/20 21:35 Acetaminophen 325 Mg Tablet PO 650 mg Q6H PRN Administration Pain and Fever Atorvastatin Calcium 20 mg 01/15/20 09:00 01/17/20 08:24 Atorvastatin Calcium 20 Mg Tablet PO 20 mg DAILY ADONIS Administration Ferrous Sulfate 324 mg 01/15/20 09:00 01/17/20 08:24 Ferrous Sulfate 324 Mg Tablet.Dr PO 324 mg DAILY ADONIS Administration Gabapentin 100 mg 01/14/20 21:25 01/17/20 08:24 Gabapentin 100 Mg Capsule PO 100 mg TID ADONIS Administration Sodium Chloride 1,000 mls @ 100 mls/hr 01/14/20 17:15 01/17/20 10:53 IVCONT 100 mls/hr .Q10H ADONIS Administration Insulin Human Lispro 0 unit 01/16/20 21:00 01/17/20 13:05 Insulin Lispro 100 Unit/Ml 3 Ml Vial SUBCUT 01/17/20 18:31 Not Given QIDACHS ADONIS Protocol Lisinopril 10 mg 01/15/20 21:00 01/16/20 21:38 Lisinopril 10 Mg Tablet PO 10 mg BEDTIME ADONIS Administration Protocol Metformin HCl 1,000 mg 01/14/20 21:25 01/17/20 08:24 Metformin Hcl 1,000 Mg Tablet PO 1,000 mg BID ADONIS Administration Omeprazole 40 mg 01/14/20 21:25 01/17/20 08:24 Omeprazole 40 Mg Capsule. PO 40 mg DAILY ADONIS Administration Paroxetine HCl 30 mg 01/15/20 09:00 01/17/20 08:24 Paroxetine Hcl 30 Mg Tablet PO 30 mg DAILY ADONIS Administration Pharmacy Consult 1 each 01/14/20 18:16 Consult Rx Perform Med Rec MISCELLANE ONCE PRN Consult order Polyethylene Glycol/Electrolytes 240 ml 01/17/20 20:00 Peg 3350/Na Sulf,Bicarb,Cl/Kcl 4,000 Ml Soln.Recon PO 01/17/20 20:01 ONCE ONE Sitagliptin Phosphate 100 mg 01/15/20 09:00 01/17/20 08:24 Sitagliptin Phosphate 100 Mg Tablet PO 100 mg DAILY ADONIS Administration Sodium Chloride 3 ml 01/15/20 00:00 01/17/20 08:24 0.9 % Sodium Chloride Flush 3 Ml Syringe IVFLUSH 3 ml QSHIFT ADONIS Administration Labs CBC & Chem 7: 01/17/20 06:39 01/16/20 07:08 Assessment and Plan (1) Symptomatic anemia: Status: Acute (2) HTN (hypertension): (3) Hyperlipidemia: (4) Diabetes: (5) Shingles: Status: Acute Assessment and Plan: 64 year female with chronic iron deficiency anemia, DM, HTN, HLD, presenting with acute symptomatic anemia with markedly low hemoglobin of 5. Symptomatic iron deficiency anemia-- exact source has not been elucidated despited capsule, EGD and colonoscopy. + occult blood, Bleeding scan 01/14 negative. -haptoglobin is pening, no evidence of hemolysis -Transfused 6 units thus far -IV PPI -GI is planning EGD +/- colonoscopy on Wednesday 01/17 2. Diabetes--continue Metformin, Sitagliptin, 3. HTN--continue lisinopril 4. Depression--Paroxetine 5. Shingles--old, Gabapenting for pain
[2020-01-17 16:00] VITALS: BP 157/66; PULSE 64; RESP 18; TEMP 36.8; O2SAT 95
[2020-01-17 16:51] LABS: Glucose, Whole Blood 99 mg/dL (60-115)
[2020-01-17] MEDS: PEG 3350/Na Sulf,Bicarb,Cl/KCL 4,000 ML SOLN.RECON 240 ML PO (18:31)
[2020-01-17] MEDS: Acetaminophen 325 MG TABLET 650 MG PO (20:57)
[2020-01-17 20:59] VITALS: BP 157/66; PULSE 64
[2020-01-17] MEDS: lisinopriL 10 MG TABLET PO (20:59)
[2020-01-17 21:08] LABS: Glucose, Whole Blood 182 mg/dL (60-115)
[2020-01-18] VITALS: BP 152/64; PULSE 74; RESP 18; TEMP 36; O2SAT 95
[2020-01-18 06:51] LABS: Anion Gap 20 (12-20); Blood Urea Nitrogen 9 mg/dL (9-16); Calcium 8.2 mg/dL (8.4-10.2); Carbon Dioxide 19 mmol/L (22-29); Chloride 107 mmol/L (96-108); Estimated Glomerular Filt Rate > 60; Glucose Fasting 140 mg/dL (60-99); Potassium 5.5 mmol/l (3.3-5.1); Sodium 140 mmol/L (135-145)
[2020-01-18 06:52] LABS: MANUAL DIFF FLAG SCAN; NRBC Pct Auto 0.2 /100WBC (0.0-0.2); PLT CLUMP 1; Red Cell Distribution Width 24.1 % (11.0-16.0); SCAN SMEAR FLAG 1
[2020-01-18 06:54] LABS: Basophils Percent Auto 0.4 % (0-2); Eosinophils Absolute Auto 0.3 X10*3/uL (0.0-0.4); Eosinophils Percent Auto 2.7 % (0-4); Hematocrit 31.1 % (37-47); Hemoglobin 8.7 g/dl (12.0-16.0); Imm Gran Abs Auto 0.13 X10*3/uL (0.00-0.03); Imm Gran Pct Auto 1.2 % (0.0-0.4); Lymphocytes Absolute Auto 2.2 X10*3/uL (1.2-4.9); Lymphocytes Percent Auto 19.9 % (20-40); Mean Corpuscular Hemoglobin 22.7 pg (27.0-33.0); Mean Corpuscular Volume 81.2 fL (80-98); Monocytes Absolute Auto 0.8 X10*3/uL (0.1-1.2); Monocytes Percent Auto 7.2 % (2-11); Neutrophils Absolute Auto 7.8 X10*3/uL (2.0-8.3); Neutrophils Percent Auto 68.6 % (45-73); Red Blood Count 3.83 X10*6/uL (4.20-5.50); White Blood Count 11.3 X10*3/uL (4.8-10.8)
[2020-01-18 07:12] VITALS: BP 153/74; PULSE 64; RESP 18; TEMP 36.4; O2SAT 94
[2020-01-18] MEDS: 0.9 % Sodium Chloride Flush 3 ML SYRINGE IVFLUSH (07:38)
[2020-01-18 07:41] LABS: Glucose, Whole Blood 142 mg/dL (60-115)
[2020-01-18] MEDS: Ferrous Sulfate 324 MG TABLET.DR PO (07:56)
[2020-01-18] MEDS: Atorvastatin Calcium 20 MG TABLET PO (07:56)
[2020-01-18] MEDS: PARoxetine HCL 30 MG TABLET PO (07:56)
[2020-01-18] MEDS: Gabapentin 100 MG CAPSULE PO (07:57)
[2020-01-18] MEDS: Omeprazole 40 MG CAPSULE.DR PO (07:57)
[2020-01-18 08:11] LABS: Platelet Count 309 X10*3/uL (160-400); SLIDE REVIEW VERIFIED
[2020-01-18 09:20] VITALS: BP 170/73; PULSE 54; RESP 18; TEMP 37.1; O2SAT 98; BMI 42.1
[2020-01-18 09:38] LABS: Glucose, Whole Blood 182 mg/dL (60-115)
--- NOTE | 2020-01-18 09:38 | HO.PM.IMPN ---
Subjective Subjective Date of Service: 01/18/20 Interval History: continues to feel much better after transfusion Cardiovascular Cardiovascular: Reports no additional cardiovascular complaints Respiratory Respiratory: Reports no additional respiratory complaints Physical Exam Vital Signs: Vital Signs: Vital Signs Temp Pulse Resp BP Pulse Ox 01/18/20 09:20 98.8 F 54 18 170/73 H 98 01/18/20 07:12 97.5 F 64 18 153/74 H 94 01/18/20 00:00 96.8 F 74 18 152/64 H 95 01/17/20 20:59 64 157/66 H 01/17/20 16:00 98.3 F 64 18 157/66 H 95 Body Mass Index 42.1 General: AO X 3, no acute distress Resp: CTA bilateral CVS: S1,S2,RRR GI: soft, non tender, non distended Neuro: motor grossly intact Psych: appropriate affect Objective Data Current Medications Generic Name Dose Route Start Last Admin Trade Name Freq PRN Reason Stop Dose Admin Acetaminophen 650 mg 01/15/20 03:07 01/17/20 20:57 Acetaminophen 325 Mg Tablet PO 650 mg Q6H PRN Administration Pain and Fever Atorvastatin Calcium 20 mg 01/15/20 09:00 01/18/20 07:56 Atorvastatin Calcium 20 Mg Tablet PO 20 mg DAILY ADONIS Administration Ferrous Sulfate 324 mg 01/15/20 09:00 01/18/20 07:56 Ferrous Sulfate 324 Mg Tablet. PO 324 mg DAILY ADONIS Administration Gabapentin 100 mg 01/14/20 21:25 01/18/20 07:57 Gabapentin 100 Mg Capsule PO 100 mg TID ADONIS Administration Lisinopril 10 mg 01/15/20 21:00 01/17/20 20:59 Lisinopril 10 Mg Tablet PO 10 mg BEDTIME ADONIS Administration Protocol Metformin HCl 1,000 mg 01/14/20 21:25 01/18/20 07:58 Metformin Hcl 1,000 Mg Tablet PO Not Given BID ADONIS Omeprazole 40 mg 01/14/20 21:25 01/18/20 07:57 Omeprazole 40 Mg Capsule. PO 40 mg DAILY ADONIS Administration Paroxetine HCl 30 mg 01/15/20 09:00 01/18/20 07:56 Paroxetine Hcl 30 Mg Tablet PO 30 mg DAILY ADONIS Administration Pharmacy Consult 1 each 01/14/20 18:16 Consult Rx Perform Med Rec MISCELLANE ONCE PRN Consult order Sitagliptin Phosphate 100 mg 01/15/20 09:00 01/18/20 07:59 Sitagliptin Phosphate 100 Mg Tablet PO Not Given DAILY ADONIS Sodium Chloride 3 ml 01/15/20 00:00 01/18/20 07:38 0.9 % Sodium Chloride Flush 3 Ml Syringe IVFLUSH 3 ml QSHIFT ADONIS Administration Labs CBC & Chem 7: 01/18/20 05:58 01/18/20 05:58 Assessment and Plan (1) Symptomatic anemia: Status: Acute (2) HTN (hypertension): (3) Hyperlipidemia: (4) Diabetes: (5) Shingles: Status: Acute Assessment and Plan: 64 year female with chronic iron deficiency anemia, DM, HTN, HLD, presented with acute symptomatic anemia with markedly low hemoglobin of 5. Symptomatic iron deficiency anemia-- exact source has not been elucidated despite capsule, EGD and colonoscopy. + occult blood, Bleeding scan 01/14 negative. -Transfused 6 units thus far -IV PPI -GI is planning EGD +/- colonoscopy today 2. Diabetes--continue Metformin, Sitagliptin, 3. HTN--continue lisinopril 4. Depression--Paroxetine 5. Shingles--old, Gabapenting for pain
--- NOTE | 2020-01-18 09:50 | HO.ANESPROP2 ---
[facility] Past Medical History Medical History (Updated 01/17/20 @ 00:00 by Angelo Chew) Anemia Carpal tunnel syndrome Carpal tunnel syndrome of left wrist Colon polyp Diabetes HTN (hypertension) Hyperlipidemia IBS (irritable bowel syndrome) Internal hemorrhoid, bleeding Osteoarthritis Shingles Functional capacity: independent ambulation Surgical History Surgical History H/O colonoscopy History of carpal tunnel surgery Tubal ligation status Social History Social History Household Members: Family Housing: House Alcohol intake: never Smoking Status: Never smoker Use of substances other than those prescribed or required for medical reasons: No Currently Displaying Signs/Symptoms of Drug Intoxication Withdrawal: No Advance Directives: No Advance Directives Information Provided: No Do you have thoughts of harming others: None Do you have a plan to hurt others: No Plan service: No Current occupational status: employed Meds Allergies Allergy/AdvReac Type Severity Reaction Status Date / Time amoxicillin [AMOXICILLIN] Allergy Intermediate RASH Verified 01/14/20 15:22 penicillin V Allergy Intermediate hives Verified 01/14/20 15:22 Penicillins [PENICILLINS] Allergy Intermediate RASH Verified 01/14/20 15:22 Sulfa (Sulfonamide Allergy Intermediate RASH, hives Verified 01/14/20 15:22 Antibiotics) [SULFA (SULFONAMIDE ANTIBIOTICS)] sulfamethoxazole Allergy Intermediate RASH Verified 01/14/20 15:22 [From BACTRIM] trimethoprim [From BACTRIM] Allergy Intermediate RASH Verified 01/14/20 15:22 Home Medications Medication Instructions Recorded Confirmed Type ferrous sulfate 1 tab PO DAILY 01/14/20 01/14/20 History metformin 1 tab PO BID 01/14/20 01/14/20 History paroxetine HCl 1 tab PO QAM 01/14/20 01/14/20 History rosuvastatin 1 tab PO DAILY 01/14/20 01/14/20 History sitagliptin [Januvia] 1 tab PO DAILY 01/14/20 01/14/20 History Exam Exam Date and Time: January 18, 2020 0950 Height,Weight and Vital Signs: Height 5 ft 3 in Weight 107.955 kg Last Vital Signs Temp 98.8 F 01/18/20 09:20 Pulse 54 01/18/20 09:20 Resp 18 01/18/20 09:20 BP 170/73 H 01/18/20 09:20 Pulse Ox 98 01/18/20 09:20 Pertinent Lab Results Pertinent Lab Results: Laboratory Tests 01/14/20 01/14/20 01/14/20 17:17 17:17 17:17 WBC 13.3 H RBC 3.06 L Hgb 6.0 L* Hct 23.2 L MCV 75.8 L MCH 19.6 L MCHC 25.9 L RDW 21.2 H Plt Count 437 H MPV 9.3 L Immature Gran % (Auto) 1.1 H Neut % (Auto) 59.9 Lymph % (Auto) 29.8 [place] % (Auto) 8.0 Eos % (Auto) 1.0 Baso % (Auto) 0.2 Lymph # (Auto) 4.0 [place] # (Auto) 1.1 Eos # (Auto) 0.1 Baso # (Auto) 0.0 Abs Immat Gran (auto) 0.15 H Absolute Neuts (auto) 8.0 Absolute Nucleated RBC 0.100 H Nucleated RBC % (auto) 0.8 H Smear Tech's Comments ESR 45 H Absolute Retic 0.079 Percent Retic 2.6 H Immature Retic Fraction 38.4 H Retic Hgb Equivalent 15.2 L Sodium 137 Potassium 4.9 Chloride 102 Carbon Dioxide 23 Anion Gap 17 BUN 15 Creatinine 0.61 Estim Creat Clear Calc 111.2 Estimated GFR > 60 POC Glucose Random Glucose 109 Fasting Glucose Calcium 9.0 Ferritin Total Bilirubin 0.9 Direct Bilirubin 0.3 AST 24 D ALT 15 Alkaline Phosphatase 138 H C-Reactive Protein 0.40 Total Protein 7.4 Albumin 3.9 Vitamin B12 TSH Stool Occult Blood Coronavirus (PCR) Blood Type Antibody Screen Crossmatch 01/14/20 01/14/20 01/14/20 17:17 17:17 18:19 WBC RBC Hgb Hct MCV MCH MCHC RDW Plt Count MPV Immature Gran % (Auto) Neut % (Auto) Lymph % (Auto) [place] % (Auto) Eos % (Auto) Baso % (Auto) Lymph # (Auto) [place] # (Auto) Eos # (Auto) Baso # (Auto) Abs Immat Gran (auto) Absolute Neuts (auto) Absolute Nucleated RBC Nucleated RBC % (auto) Smear Tech's Comments ESR Absolute Retic Percent Retic Immature Retic Fraction Retic Hgb Equivalent Sodium Potassium Chloride Carbon Dioxide Anion Gap BUN Creatinine Estim Creat Clear Calc Estimated GFR POC Glucose Random Glucose Fasting Glucose Calcium Ferritin 2 L Total Bilirubin Direct Bilirubin AST ALT Alkaline Phosphatase C-Reactive Protein Total Protein Albumin Vitamin B12 773 TSH 2.09 Stool Occult Blood Coronavirus (PCR) Blood Type O Positive Antibody Screen NEGATIVE Crossmatch See Detail 01/14/20 01/14/20 01/15/20 20:23 22:28 07:10 WBC RBC Hgb Hct MCV MCH MCHC RDW Plt Count MPV Immature Gran % (Auto) Neut % (Auto) Lymph % (Auto) [place] % (Auto) Eos % (Auto) Baso % (Auto) Lymph # (Auto) [place] # (Auto) Eos # (Auto) Baso # (Auto) Abs Immat Gran (auto) Absolute Neuts (auto) Absolute Nucleated RBC Nucleated RBC % (auto) Smear Tech's Comments ESR Absolute Retic Percent Retic Immature Retic Fraction Retic Hgb Equivalent Sodium Potassium Chloride Carbon Dioxide Anion Gap BUN Creatinine Estim Creat Clear Calc Estimated GFR POC Glucose 141 H 116 H Random Glucose Fasting Glucose Calcium Ferritin Total Bilirubin Direct Bilirubin AST ALT Alkaline Phosphatase C-Reactive Protein Total Protein Albumin Vitamin B12 TSH Stool Occult Blood Coronavirus (PCR) NEGATIVE Blood Type Antibody Screen Crossmatch 01/15/20 01/15/20 01/15/20 10:33 11:13 11:22 WBC 9.8 RBC 3.16 L Hgb 6.4 L* Hct 24.1 L MCV 76.3 L MCH 20.3 L MCHC 26.6 L RDW 21.8 H Plt Count 396 MPV 9.1 L Immature Gran % (Auto) Neut % (Auto) Lymph % (Auto) [place] % (Auto) Eos % (Auto) Baso % (Auto) Lymph # (Auto) [place] # (Auto) Eos # (Auto) Baso # (Auto) Abs Immat Gran (auto) Absolute Neuts (auto) Absolute Nucleated RBC 0.050 H Nucleated RBC % (auto) 0.5 H Smear Tech's Comments ESR Absolute Retic Percent Retic Immature Retic Fraction Retic Hgb Equivalent Sodium Potassium Chloride Carbon Dioxide Anion Gap BUN Creatinine Estim Creat Clear Calc Estimated GFR POC Glucose 116 H Random Glucose Fasting Glucose Calcium Ferritin Total Bilirubin Direct Bilirubin AST ALT Alkaline Phosphatase C-Reactive Protein Total Protein Albumin Vitamin B12 TSH Stool Occult Blood NEG Coronavirus (PCR) Blood Type Antibody Screen Crossmatch 01/15/20 01/15/20 01/16/20 17:03 20:49 07:08 WBC RBC Hgb Hct MCV MCH MCHC RDW Plt Count MPV Immature Gran % (Auto) Neut % (Auto) Lymph % (Auto) [place] % (Auto) Eos % (Auto) Baso % (Auto) Lymph # (Auto) [place] # (Auto) Eos # (Auto) Baso # (Auto) Abs Immat Gran (auto) Absolute Neuts (auto) Absolute Nucleated RBC Nucleated RBC % (auto) Smear Tech's Comments ESR Absolute Retic Percent Retic Immature Retic Fraction Retic Hgb Equivalent Sodium 137 Potassium 4.1 Chloride 102 Carbon Dioxide 25 Anion Gap 14 BUN 15 Creatinine 0.62 Estim Creat Clear Calc 109.4 Estimated GFR > 60 POC Glucose 125 H 146 H Random Glucose 130 H Fasting Glucose Calcium 8.5 Ferritin Total Bilirubin Direct Bilirubin AST ALT Alkaline Phosphatase C-Reactive Protein Total Protein Albumin Vitamin B12 TSH Stool Occult Blood Coronavirus (PCR) Blood Type Antibody Screen Crossmatch 01/16/20 01/16/20 01/16/20 07:08 08:31 12:34 WBC 11.0 H RBC 3.55 L Hgb 7.6 L Hct 27.9 L MCV 78.6 L MCH 21.4 L MCHC 27.2 L RDW 21.7 H Plt Count 363 MPV 9.2 L Immature Gran % (Auto) Neut % (Auto) Lymph % (Auto) [place] % (Auto) Eos % (Auto) Baso % (Auto) Lymph # (Auto) [place] # (Auto) Eos # (Auto) Baso # (Auto) Abs Immat Gran (auto) Absolute Neuts (auto) Absolute Nucleated RBC 0.060 H Nucleated RBC % (auto) 0.5 H Smear Tech's Comments ESR Absolute Retic Percent Retic Immature Retic Fraction Retic Hgb Equivalent Sodium Potassium Chloride Carbon Dioxide Anion Gap BUN Creatinine Estim Creat Clear Calc Estimated GFR POC Glucose 191 H 87 Random Glucose Fasting Glucose Calcium Ferritin Total Bilirubin Direct Bilirubin AST ALT Alkaline Phosphatase C-Reactive Protein Total Protein Albumin Vitamin B12 TSH Stool Occult Blood Coronavirus (PCR) Blood Type Antibody Screen Crossmatch 01/16/20 01/16/20 01/17/20 18:04 20:50 06:39 WBC 12.4 H RBC 3.69 L Hgb 8.2 L Hct 29.6 L MCV 80.2 MCH 22.2 L MCHC 27.7 L RDW 22.0 H Plt Count 369 MPV 9.1 L Immature Gran % (Auto) Neut % (Auto) Lymph % (Auto) [place] % (Auto) Eos % (Auto) Baso % (Auto) Lymph # (Auto) [place] # (Auto) Eos # (Auto) Baso # (Auto) Abs Immat Gran (auto) Absolute Neuts (auto) Absolute Nucleated RBC 0.030 H Nucleated RBC % (auto) 0.2 Smear Tech's Comments ESR Absolute Retic Percent Retic Immature Retic Fraction Retic Hgb Equivalent Sodium Potassium Chloride Carbon Dioxide Anion Gap BUN Creatinine Estim Creat Clear Calc Estimated GFR POC Glucose 134 H 117 H Random Glucose Fasting Glucose Calcium Ferritin Total Bilirubin Direct Bilirubin AST ALT Alkaline Phosphatase C-Reactive Protein Total Protein Albumin Vitamin B12 TSH Stool Occult Blood Coronavirus (PCR) Blood Type Antibody Screen Crossmatch 01/17/20 01/17/20 01/17/20 08:17 12:23 16:46 WBC RBC Hgb Hct MCV MCH MCHC RDW Plt Count MPV Immature Gran % (Auto) Neut % (Auto) Lymph % (Auto) [place] % (Auto) Eos % (Auto) Baso % (Auto) Lymph # (Auto) [place] # (Auto) Eos # (Auto) Baso # (Auto) Abs Immat Gran (auto) Absolute Neuts (auto) Absolute Nucleated RBC Nucleated RBC % (auto) Smear Tech's Comments ESR Absolute Retic Percent Retic Immature Retic Fraction Retic Hgb Equivalent Sodium Potassium Chloride Carbon Dioxide Anion Gap BUN Creatinine Estim Creat Clear Calc Estimated GFR POC Glucose 104 112 99 Random Glucose Fasting Glucose Calcium Ferritin Total Bilirubin Direct Bilirubin AST ALT Alkaline Phosphatase C-Reactive Protein Total Protein Albumin Vitamin B12 TSH Stool Occult Blood Coronavirus (PCR) Blood Type Antibody Screen Crossmatch 01/17/20 01/17/20 01/18/20 20:54 20:54 05:58 WBC 11.3 H RBC 3.83 L Hgb 8.7 L Hct 31.1 L MCV 81.2 MCH 22.7 L MCHC 28.0 L RDW 24.1 H Plt Count 309 MPV Not Reportable Immature Gran % (Auto) 1.2 H Neut % (Auto) 68.6 Lymph % (Auto) 19.9 L [place] % (Auto) 7.2 Eos % (Auto) 2.7 Baso % (Auto) 0.4 Lymph # (Auto) 2.2 [place] # (Auto) 0.8 Eos # (Auto) 0.3 Baso # (Auto) 0.0 Abs Immat Gran (auto) 0.13 H Absolute Neuts (auto) 7.8 Absolute Nucleated RBC 0.020 H Nucleated RBC % (auto) 0.2 Smear Tech's Comments VERIFIED ESR Absolute Retic Percent Retic Immature Retic Fraction Retic Hgb Equivalent Sodium Potassium Chloride Carbon Dioxide Anion Gap BUN Creatinine Estim Creat Clear Calc Estimated GFR POC Glucose 182 H 182 H Random Glucose Fasting Glucose Calcium Ferritin Total Bilirubin Direct Bilirubin AST ALT Alkaline Phosphatase C-Reactive Protein Total Protein Albumin Vitamin B12 TSH Stool Occult Blood Coronavirus (PCR) Blood Type Antibody Screen Crossmatch 01/18/20 01/18/20 05:58 07:06 WBC RBC Hgb Hct MCV MCH MCHC RDW Plt Count MPV Immature Gran % (Auto) Neut % (Auto) Lymph % (Auto) [place] % (Auto) Eos % (Auto) Baso % (Auto) Lymph # (Auto) [place] # (Auto) Eos # (Auto) Baso # (Auto) Abs Immat Gran (auto) Absolute Neuts (auto) Absolute Nucleated RBC Nucleated RBC % (auto) Smear Tech's Comments ESR Absolute Retic Percent Retic Immature Retic Fraction Retic Hgb Equivalent Sodium 140 Potassium 5.5 H D Chloride 107 Carbon Dioxide 19 L Anion Gap 20 BUN 9 Creatinine 0.64 Estim Creat Clear Calc 106.0 Estimated GFR > 60 POC Glucose 142 H Random Glucose Fasting Glucose 140 H Calcium 8.2 L Ferritin Total Bilirubin Direct Bilirubin AST ALT Alkaline Phosphatase C-Reactive Protein Total Protein Albumin Vitamin B12 TSH Stool Occult Blood Coronavirus (PCR) Blood Type Antibody Screen Crossmatch Airway Mallampati Class: III TM Dist: >3cm Neck ROM: Full Assessment and Plan Assessment Anesthesia Assessment: Anesthesia Plan Discussed
--- NOTE | 2020-01-18 10:31 | MHC.SHP ---
Pre-Procedural Eval Section A The patient is an INPATIENT: Yes The History & Physical has been completed within 30 days and I have reviewed it.: Yes Section B Chief Complaint: symptomatic anemia Allergies: Allergies Allergy/AdvReac Type Severity Reaction Status Date / Time amoxicillin [AMOXICILLIN] Allergy Intermediate RASH Verified 01/14/20 15:22 penicillin V Allergy Intermediate hives Verified 01/14/20 15:22 Penicillins [PENICILLINS] Allergy Intermediate RASH Verified 01/14/20 15:22 Sulfa (Sulfonamide Allergy Intermediate RASH, hives Verified 01/14/20 15:22 Antibiotics) [SULFA (SULFONAMIDE ANTIBIOTICS)] sulfamethoxazole Allergy Intermediate RASH Verified 01/14/20 15:22 [From BACTRIM] trimethoprim [From BACTRIM] Allergy Intermediate RASH Verified 01/14/20 15:22 Plan Diagnosis/Plan: Unchanged Patient has been examined and remains a candidate for the planned procedure
--- NOTE | 2020-01-18 10:32 | PM.OP ---
Brief Operative Note Date of procedure: 01/18/20 Pre-op diagnosis: anemia Post-op diagnosis: same Procedure: egd,colonoscopy Surgeon: Matias Bishop MD Anesthesia: MAC Estimated blood loss (mL): 0 Condition: stable Disposition: PACU
--- NOTE | 2020-01-18 10:53 | P.OP_ITS ---
Operative Note Operative Note Narrative: Operative Information Procedure Description: EGD with push enteroscopy, Colonoscopy FLEXIBLE TRANSORAL UPPER GASTROINTESTINAL ENDOSCOPY with push enteroscopy AND COLONOSCOPY PROCEDURE NOTE UPPER ENDOSCOPY Consent: Indications for the procedure and potential complications of bleeding, perforation, reaction to medications and missed diagnosis were discussed with the patient and informed consent was obtained. Instrument: Olympus variable stiffness pediatric scope 190L Monitoring: Vital signs and clinical assessment, continuous EKG monitoring, Pulse oximetry, Carbon Dioxide monitoring and blood pressure monitoring were done throughout the procedure. Procedure: The patient was placed in the left lateral decubitis position and pre-procedure medications were administered and a bite block was placed. The endoscope was inserted into the mouth and advanced under direct vision to the proximal jejunum. A careful inspection was made as the upper endoscope was withdrawn including a retroflexed examination of the proximal stomach; Findings and interventions are described below. Findings: Larynx:normal Esophagus: GE junction at 40 cm, diaphragm hiatus at 40 cm, normal mucosa Stomach: Normal mucosa. several benign appearing fundic gland polyps seen. Grade 2 flap valve on retroflexed examination of the cardia. Duodenum: Normal bulb and descending duodenum, biopsies taken Jejunum: normal, iker ink spot tattoo was done for marking at most distal point reached for future reference Intervention: Biopsies as noted above COLONOSCOPY Instrument: Olympus variable stiffness pediatric scope 190L Colonoscopy Monitoring: Vital signs and clinical assessment, continuous EKG monitoring, Pulse oximetry, Carbon Dioxide monitoring and blood pressure monitoring were done throughout the procedure. Colon withdrawal time was 8 minutes. Procedure: The patient was placed in the left lateral decubitis position and pre-procedure medications were administered. After a digital rectal examination of the ano-rectum, the video colonoscope was inserted into the rectum and advanced through the colon to the cecum/TI. The colonoscope was slowly withdrawn in a retrograde panoramic fashion and the colon mucosa was carefully examined including a retroflexed view of the rectum. Findings and interventions are described below. Procedure Difficulty: Findings: No blood seen in entire small bowel, no melenic stool Terminal Ileum-normal Cecum:normal Ascending Colon: normal Transverse Colon -normal Descending Colon:normal Sigmoid Colon: normal, several small diverticula seen Rectum: Retroflexion with moderate sized internal hemorrhoids, grade III with one column prolapsing out which appeared red and inflammed, it looked like it may have recently bled Anorectum - prolapsed internal hemorrhoid seen on cheeks Colon preparation: [place] Bowel Preparation Scale Right colon; 2 Transverse colon: 2 Left colon; 2 (0 = Unprepared colon segment with mucosa not seen due to solid stool that cannot be cleared. 1 = Portion of mucosa of the colon segment seen, but other areas of the colon segment not well seen due to staining, residual stool and/or opaque liquid. 2 = Minor amount of residual staining, small fragments of stool and/or opaque liquid, but mucosa of colon segment seen well. 3 = Entire mucosa of colon segment seen well with no residual staining, small fragments of stool or opaque liquid) Impression and Post Procedure Diagnosis: Endoscopy Findings: fundic gland polyps Colonoscopy Findings: internal hemorrhoids, diverticulosis Plan: Await Pathology results Repeat Colonoscopy in 5-10 years or earlier if clinically indicated High fiber diet leaflet avoid straining at stool, anusol bid for 7 days, refer colorectal surgery if anemia persists after treatment for hemorrhoids then repeat capsule endoscopy Above findings were reviewed with the patient and relevant handouts were provided if indicated.
[2020-01-18 11:01] VITALS: BP 111/54; PULSE 86; RESP 18; TEMP 36.9; O2SAT 96
[2020-01-18 11:16] VITALS: BP 114/64; PULSE 74; RESP 16; TEMP 36.9; O2SAT 94
--- NOTE | 2020-01-18 11:59 | MHC.CM.NN ---
nurse critical care unit nurse note [facility] medical record reviewed along with case discussed with staff nurse and on mu;abena discipinary roundss/p egd with push enteroscopy findings;fundal gland polyp, colonscopy-internal hemmorids, diverticulosis. plan continue to follow all labs advance diet care managaer to continue to follow for any changing discharge needs discharge ruiz initially anticipate home no services
[2020-01-18 12:17] VITALS: BP 154/71; PULSE 59; RESP 19; TEMP 36.3; O2SAT 96
[2020-01-18 12:38] LABS: Glucose, Whole Blood 126 mg/dL (60-115)
--- NOTE | 2020-01-18 13:29 | PM.DS ---
DS: Providers Provider Date of admission: 01/14/20 17:08 Primary care physician: Viviana Randolph MD Consults: 01/14/20 17:43 Consult to Gastroenterology Routine Consulting Provider: Matias Bishop Reason for consultation: Iron deficiency anemia Has provider been notified: Yes DS: Diagnosis Discharge Diagnosis (1) Symptomatic anemia: Status: Acute (2) HTN (hypertension): (3) Hyperlipidemia: (4) Diabetes: (5) Shingles: Status: Acute DS: Summary Hospital Course Hospital Course: HPI:64 female, ob[place] with HTN, diabetes, HLD, HTN, IBS, chronic iron deficiency anemia who presents with symptomatic anemia and hemoglobin of 5. She was admitted to the hospital November 16 with anemia and at that time was transfused and discharged and subsequently underwent workup with EGD and colonoscopy by Dr. Bishop on November 25 and found to have some polyps, internal hemorrhoids, gastritis but no active bleeding was noted. She has since been on iron and PPI. Since that time she continued to be having fatigue, shortness of breath with exertion, and dizziness at time. She had outpatient lab work done and was noted to have hemoglobin of 5 and was told to go to the emergency room by her primary care doctor. She reports no NSAID use. And has not noted any blood in her stool no melena no hematochezia. Of note she was seen in ED on January 09 for shingles. Hospital course: She Was essentially admitted for symptomatic anemia that has been ongoing on for quite some time and had previous workup without any definitive source of a bleed. Patient was admitted transfuse with RBCs repeat H&H is improved. she underwent repeat egd and colonoscopy, working etiology is hemmerhoids, she will start anusol and follow up surgery Time Spent with Patient Time attestation: Total time spent providing and/or coordinating discharge services: Physical Exam Vital Signs: Vital Signs: Vital Signs Temp Pulse Resp BP Pulse Ox 01/18/20 12:17 97.3 F 59 19 154/71 H 96 01/18/20 11:16 98.4 F 74 16 114/64 94 01/18/20 11:01 98.5 F 86 18 111/54 L 96 01/18/20 09:20 98.8 F 54 18 170/73 H 98 01/18/20 07:12 97.5 F 64 18 153/74 H 94 01/18/20 00:00 96.8 F 74 18 152/64 H 95 01/17/20 20:59 64 157/66 H 01/17/20 16:00 98.3 F 64 18 157/66 H 95 Body Mass Index 42.1 General: AO X 3, no acute distress Resp: CTA bilateral CVS: S1,S2,RRR GI: soft, non tender, non distended Neuro: motor grossly intact Psych: appropriate affect DS: Data Data Completed and Pending Pending studies at discharge: Pending at discharge 01/18/20 10:33 Surgical [PTH] Routine Labs on day of discharge: Labs from last 24 hours 01/18/20 01/18/20 01/18/20 12:13 07:06 05:58 WBC RBC Hgb Hct MCV MCH MCHC RDW Plt Count MPV Immature Gran % (Auto) Neut % (Auto) Lymph % (Auto) [place] % (Auto) Eos % (Auto) Baso % (Auto) Lymph # (Auto) [place] # (Auto) Eos # (Auto) Baso # (Auto) Abs Immat Gran (auto) Absolute Neuts (auto) Absolute Nucleated RBC Nucleated RBC % (auto) Smear Tech's Comments Sodium 140 Potassium 5.5 H D Chloride 107 Carbon Dioxide 19 L Anion Gap 20 BUN 9 Creatinine 0.64 Estim Creat Clear Calc 106.0 Estimated GFR > 60 POC Glucose 126 H 142 H Fasting Glucose 140 H Calcium 8.2 L 01/18/20 01/17/20 01/17/20 05:58 20:54 20:54 WBC 11.3 H RBC 3.83 L Hgb 8.7 L Hct 31.1 L MCV 81.2 MCH 22.7 L MCHC 28.0 L RDW 24.1 H Plt Count 309 MPV Not Reportable Immature Gran % (Auto) 1.2 H Neut % (Auto) 68.6 Lymph % (Auto) 19.9 L Bro[place] % (Auto) 7.2 Eos % (Auto) 2.7 Baso % (Auto) 0.4 Lymph # (Auto) 2.2 [place] # (Auto) 0.8 Eos # (Auto) 0.3 Baso # (Auto) 0.0 Abs Immat Gran (auto) 0.13 H Absolute Neuts (auto) 7.8 Absolute Nucleated RBC 0.020 H Nucleated RBC % (auto) 0.2 Smear Tech's Comments VERIFIED Sodium Potassium Chloride Carbon Dioxide Anion Gap BUN Creatinine Estim Creat Clear Calc Estimated GFR POC Glucose 182 H 182 H Fasting Glucose Calcium 01/17/20 16:46 WBC RBC Hgb Hct MCV MCH MCHC RDW Plt Count MPV Immature Gran % (Auto) Neut % (Auto) Lymph % (Auto) [place] % (Auto) Eos % (Auto) Baso % (Auto) Lymph # (Auto) [place] # (Auto) Eos # (Auto) Baso # (Auto) Abs Immat Gran (auto) Absolute Neuts (auto) Absolute Nucleated RBC Nucleated RBC % (auto) Smear Tech's Comments Sodium Potassium Chloride Carbon Dioxide Anion Gap BUN Creatinine Estim Creat Clear Calc Estimated GFR POC Glucose 99 Fasting Glucose Calcium Discharge Plan Discharge Patient Disposition: Home, Self-Care Referrals: Viviana Randolph MD [Primary Care Provider] - Karan Torres MD [Physician] - 1 Week (hemmeroids) Discharge Medications: New hydrocortisone acetate [Anusol-HC] 25 mg suppository 25 mg NE BEDTIME Qty: 12 RF: 0 Continued omeprazole 40 mg capsule,delayed release(DR/EC) 40 mg PO QAM Qty: 30 RF: 6 gabapentin 100 mg capsule 100 mg PO TID Qty: 20 RF: 0 metformin 1,000 mg tablet 1 tab PO BID RF: 0 paroxetine HCl 25 mg tablet extended release 24 hr 1 tab PO QAM RF: 0 rosuvastatin 5 mg tablet 1 tab PO DAILY RF: 0 Januvia 100 mg tablet 1 tab PO DAILY RF: 0 ferrous sulfate 324 mg (65 mg iron) tablet,delayed release (DR/EC) 1 tab PO DAILY RF: 0 Held lisinopril 10 mg tablet 10 mg PO DAILY Qty: 30 RF: 6 Hold Instructions: Resume on 01/25/20. hyperkalemia, check bmp before restarting Discharge Orders: Discharge Order (Routine); Ordered 01/18/20 Ordered By: Jacques Sawyer Diet: advance to your usual diet Activity on Discharge: As tolerated Visit Report Forms: Patient Portal Discharge page Care Plan Goals: recovery Health Concerns: anemia Plan of Treatment: start anusol, follow up suregery, continue iron
[2020-01-18 14:06] LABS: Haptoglobin 277 mg/dL (43-212)
--- NOTE | 2020-01-18 14:06 | MHC.CM.PN ---
Pt will DC home today with no services. Taxi voucher provided.
[2020-01-20 20:36] LABS: Thyrotropin Receptor Antibody <1.00 IU/L (<=2.00)
== END 2020-01-18 14:29 | disposition home or self-care (01) | DRG 254 ==
LOC: HO.ED 16:34 → HO.S3 17:45
PROVIDERS: Internal Medicine Gastroenterology; Physician Assistant; Admitting Provider Internal Medicine; Emergency Provider Emergency Medicine; PCP Internal Medicine; Visit Provider Internal Medicine
PROC: 0DB98ZX Excision of Duodenum, Via Natural or Artificial Opening Endoscopic, Diagnostic (ICD-10-PCS; principal; 2020-01-18 12:20)
DX: K64.8 Other hemorrhoids (principal); Z68.41 Body mass index [BMI] 40.0-44.9, adult; B02.9 Zoster without complications; E11.9 Type 2 diabetes mellitus without complications; D50.9 Iron deficiency anemia, unspecified; F32.9 Major depressive disorder, single episode, unspecified; M19.90 Unspecified osteoarthritis, unspecified site; K44.9 Diaphragmatic hernia without obstruction or gangrene; K31.7 Polyp of stomach and duodenum; E66.9 Obesity, unspecified; K57.30 Diverticulosis of large intestine without perforation or abscess without bleeding; Z20.828 Contact with and (suspected) exposure to other viral communicable diseases; Z88.0 Allergy status to penicillin; Z88.2 Allergy status to sulfonamides; Z79.84 Long term (current) use of oral hypoglycemic drugs; Z79.899 Other long term (current) drug therapy
CPT/HCPCS: 36415; 36430; 78278; 80048; 80053; 80061; 80076; 82272; 82607; 82728; 82746; 82947; 83010; 83036; 83520; 83540; 84443; 84450; 84460; 85025; 85027; 85045; 85060; 85652; 86140; 86850; 86900; 86901; 86920; 86923; 88305; 99285; A9512; P9016; U0003

== ENCOUNTER 2020-01-28 14:58 | Outpatient (REF) | payer BC, SELFPAY ==
[2020-01-28 16:35] LABS: MANUAL DIFF FLAG NO
[2020-01-28 16:40] LABS: Basophils Percent Auto 0.3 % (0-2); Eosinophils Absolute Auto 0.2 X10*3/uL (0.0-0.4); Eosinophils Percent Auto 1.8 % (0-4); Hematocrit 31.7 % (37-47); Hemoglobin 8.8 g/dl (12.0-16.0); Imm Gran Abs Auto 0.06 X10*3/uL (0.00-0.03); Imm Gran Pct Auto 0.5 % (0.0-0.4); Lymphocytes Absolute Auto 3.2 X10*3/uL (1.2-4.9); Mean Corpuscular HGB Conc 27.8 g/dl (31.0-35.0); Mean Corpuscular Hemoglobin 23.3 pg (27.0-33.0); Mean Corpuscular Volume 83.9 fL (80-98); Mean Platelet Volume 8.6 fL (9.4-12.3); Monocytes Absolute Auto 1.1 X10*3/uL (0.1-1.2); Monocytes Percent Auto 9.3 % (2-11); Neutrophils Absolute Auto 6.8 X10*3/uL (2.0-8.3); Neutrophils Percent Auto 60.1 % (45-73); Platelet Count 545 X10*3/uL (160-400); Red Blood Count 3.78 X10*6/uL (4.20-5.50); White Blood Count 11.3 X10*3/uL (4.8-10.8)
[2020-01-28 16:49] LABS: Estimated Average Glucose 143 mg/dL; Hemoglobin A1c % 6.6 %
[2020-01-28 17:05] LABS: Alanine Aminotransferase 20 U/L (0-31); Anion Gap 13 (12-20); Aspartate Amino Transferase 18 U/L (5-31); Blood Urea Nitrogen 22 mg/dL (9-16); Calcium 9.1 mg/dL (8.4-10.2); Carbon Dioxide 28 mmol/L (22-29); Chloride 101 mmol/L (96-108); Cholesterol 125 mg/dL; Estimated Glomerular Filt Rate > 60; Glucose Fasting 118 mg/dL (60-99); HDL Cholesterol 34 mg/dL; Iron 32 mcg/dL (30-160); LDL Cholesterol Calculated 75 mg/dl; Percent Iron Saturation 7 % (15-50); Potassium 4.7 mmol/l (3.3-5.1); Sodium 137 mmol/L (135-145); Total Iron Binding Capacity 466 mcg/dL (228-428); Triglycerides 84 mg/dL; Unsaturated Iron Binding 434 ug/dL
[2020-01-28 17:11] LABS: Creatinine Urine 72.31 mg/dL
[2020-01-28 17:27] LABS: Ferritin 16 ng/mL (10-250); Vitamin D 25-OH Total 21.4 ng/mL (>30)
== END 2020-01-28 14:59 | disposition home or self-care (01) ==
LOC: HO.LAB 14:58
PROVIDERS: Absent Provider Internal Medicine; PCP Internal Medicine; Visit Provider Surgery
DX: K29.70 Gastritis, unspecified, without bleeding (principal); I10 Essential (primary) hypertension; Z78.0 Asymptomatic menopausal state; E78.5 Hyperlipidemia, unspecified; E11.9 Type 2 diabetes mellitus without complications; E87.5 Hyperkalemia; D50.9 Iron deficiency anemia, unspecified; D50.0 Iron deficiency anemia secondary to blood loss (chronic); K64.4 Residual hemorrhoidal skin tags; K64.8 Other hemorrhoids
CPT/HCPCS: 36415; 46600; 80048; 80061; 82043; 82306; 82728; 83036; 83540; 84450; 84460; 85025; 85027

== ENCOUNTER 2020-02-23 12:29 | Outpatient (REF) | payer BC, SELFPAY ==
[2020-02-23 13:06] LABS: MANUAL DIFF FLAG NO
[2020-02-23 13:09] LABS: Basophils Percent Auto 0.3 % (0-2); Eosinophils Absolute Auto 0.2 X10*3/uL (0.0-0.4); Eosinophils Percent Auto 1.6 % (0-4); Hematocrit 33.9 % (37-47); Hemoglobin 9.5 g/dl (12.0-16.0); Imm Gran Abs Auto 0.05 X10*3/uL (0.00-0.03); Imm Gran Pct Auto 0.5 % (0.0-0.4); Lymphocytes Absolute Auto 2.8 X10*3/uL (1.2-4.9); Lymphocytes Percent Auto 29.3 % (20-40); Mean Corpuscular Hemoglobin 23.8 pg (27.0-33.0); Mean Corpuscular Volume 84.8 fL (80-98); Mean Platelet Volume 8.7 fL (9.4-12.3); Monocytes Absolute Auto 0.8 X10*3/uL (0.1-1.2); Monocytes Percent Auto 8.8 % (2-11); Neutrophils Absolute Auto 5.6 X10*3/uL (2.0-8.3); Neutrophils Percent Auto 59.5 % (45-73); Platelet Count 405 X10*3/uL (160-400); Red Cell Distribution Width 21.9 % (11.0-16.0); White Blood Count 9.4 X10*3/uL (4.8-10.8)
[2020-02-23 13:33] LABS: Iron 30 mcg/dL (30-160); Percent Iron Saturation 7 % (15-50); Potassium 4.7 mmol/l (3.3-5.1); Total Iron Binding Capacity 446 mcg/dL (228-428); Unsaturated Iron Binding 416 ug/dL
[2020-02-23 13:55] LABS: Ferritin 9 ng/mL (10-250)
== END 2020-02-23 12:30 | disposition home or self-care (01) ==
LOC: HO.LAB 12:29
PROVIDERS: PCP Internal Medicine; Visit Provider Internal Medicine
DX: D50.9 Iron deficiency anemia, unspecified (principal); E87.5 Hyperkalemia; K29.70 Gastritis, unspecified, without bleeding; R06.02 Shortness of breath; Z86.2 Personal history of diseases of the blood and blood-forming organs and certain disorders involving the immune mechanism
CPT/HCPCS: 36415; 82728; 83540; 84132; 85025

== ENCOUNTER 2020-04-25 08:33 | Outpatient (REF) | payer BC, SELFPAY ==
[2020-04-25 11:45] LABS: MANUAL DIFF FLAG NO
[2020-04-25 11:52] LABS: Basophils Percent Auto 0.2 % (0-2); Eosinophils Absolute Auto 0.1 X10*3/uL (0.0-0.4); Eosinophils Percent Auto 1.5 % (0-4); Hematocrit 43.6 % (37-47); Hemoglobin 12.6 g/dl (12.0-16.0); Imm Gran Abs Auto 0.03 X10*3/uL (0.00-0.03); Imm Gran Pct Auto 0.3 % (0.0-0.4); Lymphocytes Absolute Auto 2.1 X10*3/uL (1.2-4.9); Lymphocytes Percent Auto 24.2 % (20-40); Mean Corpuscular HGB Conc 28.9 g/dl (31.0-35.0); Mean Corpuscular Hemoglobin 24.9 pg (27.0-33.0); Mean Corpuscular Volume 86.2 fL (80-98); Monocytes Absolute Auto 0.7 X10*3/uL (0.1-1.2); Monocytes Percent Auto 8.3 % (2-11); Neutrophils Absolute Auto 5.7 X10*3/uL (2.0-8.3); Neutrophils Percent Auto 65.5 % (45-73); Platelet Count 346 X10*3/uL (160-400); Red Blood Count 5.06 X10*6/uL (4.20-5.50); Red Cell Distribution Width 16.6 % (11.0-16.0); White Blood Count 8.7 X10*3/uL (4.8-10.8)
[2020-04-25 12:23] LABS: Potassium 4.6 mmol/L (3.3-5.1)
== END 2020-04-25 08:34 | disposition home or self-care (01) ==
LOC: HO.HMGCLDS 08:33
PROVIDERS: PCP Internal Medicine; Visit Provider Internal Medicine
DX: E87.5 Hyperkalemia (principal); D50.0 Iron deficiency anemia secondary to blood loss (chronic)
CPT/HCPCS: 36415; 84132; 85025

== ENCOUNTER 2020-06-07 08:34 | Outpatient (REF) | payer BC, SELFPAY ==
[2020-06-07 11:13] LABS: MANUAL DIFF FLAG NO
[2020-06-07 11:19] LABS: Basophils Percent Auto 0.2 % (0-2); Eosinophils Absolute Auto 0.1 X10*3/uL (0.0-0.4); Eosinophils Percent Auto 1.2 % (0-4); Hematocrit 42.8 % (37-47); Hemoglobin 12.6 g/dl (12.0-16.0); Imm Gran Abs Auto 0.03 X10*3/uL (0.00-0.03); Imm Gran Pct Auto 0.4 % (0.0-0.4); Lymphocytes Absolute Auto 2.5 X10*3/uL (1.2-4.9); Lymphocytes Percent Auto 29.9 % (20-40); Mean Corpuscular HGB Conc 29.4 g/dl (31.0-35.0); Mean Corpuscular Hemoglobin 25.3 pg (27.0-33.0); Mean Corpuscular Volume 85.9 fL (80-98); Mean Platelet Volume 9.7 fL (9.4-12.3); Monocytes Absolute Auto 0.7 X10*3/uL (0.1-1.2); Monocytes Percent Auto 7.9 % (2-11); Neutrophils Absolute Auto 5.1 X10*3/uL (2.0-8.3); Neutrophils Percent Auto 60.4 % (45-73); Platelet Count 326 X10*3/uL (160-400); Red Blood Count 4.98 X10*6/uL (4.20-5.50); White Blood Count 8.4 X10*3/uL (4.8-10.8)
[2020-06-07 12:13] LABS: Creatinine Urine 101.92 mg/dL; Microalbum/Creatinine Ratio Ur 8.8 ug/mg cr
[2020-06-07 12:46] LABS: Vitamin D 25-OH Total 57.5 ng/mL (>30)
[2020-06-07 12:48] LABS: Alanine Aminotransferase 14 U/L (0-31); Anion Gap 18 (12-20); Aspartate Amino Transferase 18 U/L (5-31); Blood Urea Nitrogen 23 mg/dL (9-16); Calcium 9.4 mg/dL (8.4-10.2); Carbon Dioxide 26 mmol/L (22-29); Chloride 104 mmol/L (96-108); Cholesterol 129 mg/dL; Estimated Glomerular Filt Rate > 60; Glucose Fasting 143 mg/dL (60-99); HDL Cholesterol 40 mg/dL; Iron 51 mcg/dL (30-160); LDL Cholesterol Calculated 75 mg/dl; Percent Iron Saturation 13 % (15-50); Potassium 4.3 mmol/L (3.3-5.1); Sodium 144 mmol/L (135-145); Total Iron Binding Capacity 405 mcg/dL (228-428); Triglycerides 71 mg/dL; Unsaturated Iron Binding 354 ug/dL
[2020-06-07 12:49] LABS: Estimated Average Glucose 174 mg/dL; Hemoglobin A1c % 7.7 %
== END 2020-06-07 08:35 | disposition home or self-care (01) ==
LOC: HO.HMGCLDS 08:34
PROVIDERS: PCP Internal Medicine; Visit Provider Internal Medicine
DX: E78.00 Pure hypercholesterolemia, unspecified (principal); I10 Essential (primary) hypertension; E11.9 Type 2 diabetes mellitus without complications; K64.4 Residual hemorrhoidal skin tags; K64.8 Other hemorrhoids; Z78.0 Asymptomatic menopausal state; Z86.2 Personal history of diseases of the blood and blood-forming organs and certain disorders involving the immune mechanism
CPT/HCPCS: 36415; 80048; 80061; 82043; 82306; 83036; 83540; 84450; 84460; 85025

== ENCOUNTER 2020-10-13 08:08 | Outpatient (REF) | payer BC, SELFPAY ==
[2020-10-13 11:41] LABS: MANUAL DIFF FLAG NO
[2020-10-13 11:47] LABS: Basophils Percent Auto 0.1 % (0-2); Eosinophils Absolute Auto 0.1 X10*3/uL (0.0-0.4); Eosinophils Percent Auto 1.3 % (0-4); Hematocrit 43.5 % (37-47); Hemoglobin 13.5 g/dl (12.0-16.0); Imm Gran Abs Auto 0.04 X10*3/uL (0.00-0.03); Imm Gran Pct Auto 0.4 % (0.0-0.4); Lymphocytes Absolute Auto 2.8 X10*3/uL (1.2-4.9); Lymphocytes Percent Auto 28.1 % (20-40); Mean Corpuscular Hemoglobin 28.4 pg (27.0-33.0); Mean Corpuscular Volume 91.4 fL (80-98); Mean Platelet Volume 9.9 fL (9.4-12.3); Monocytes Absolute Auto 0.7 X10*3/uL (0.1-1.2); Monocytes Percent Auto 6.9 % (2-11); Neutrophils Absolute Auto 6.3 X10*3/uL (2.0-8.3); Neutrophils Percent Auto 63.2 % (45-73); Platelet Count 334 X10*3/uL (160-400); Red Blood Count 4.76 X10*6/uL (4.20-5.50); Red Cell Distribution Width 14.9 % (11.0-16.0); White Blood Count 9.9 X10*3/uL (4.8-10.8)
[2020-10-13 11:53] LABS: Estimated Average Glucose 194 mg/dL; Hemoglobin A1c % 8.4 %
[2020-10-13 12:04] LABS: Alanine Aminotransferase 17 U/L (0-31); Anion Gap 14 (12-20); Aspartate Amino Transferase 17 U/L (5-31); Blood Urea Nitrogen 21 mg/dL (9-16); Calcium 9.9 mg/dL (8.4-10.2); Carbon Dioxide 26 mmol/L (22-29); Chloride 105 mmol/L (96-108); Cholesterol 140 mg/dL; Estimated Glomerular Filt Rate > 60; Glucose Fasting 142 mg/dL (60-99); HDL Cholesterol 40 mg/dL; LDL Cholesterol Calculated 85 mg/dl; Potassium 4.4 mmol/L (3.3-5.1); Sodium 141 mmol/L (135-145); Triglycerides 79 mg/dL
== END 2020-10-13 08:09 | disposition home or self-care (01) ==
LOC: HO.HMGCLDS 08:08
PROVIDERS: PCP Internal Medicine; Visit Provider Internal Medicine
DX: E11.65 Type 2 diabetes mellitus with hyperglycemia (principal); E78.00 Pure hypercholesterolemia, unspecified; K29.70 Gastritis, unspecified, without bleeding; I10 Essential (primary) hypertension
CPT/HCPCS: 36415; 80048; 80061; 83036; 84450; 84460; 85025

== ENCOUNTER 2021-01-16 09:00 | Outpatient (REF) | payer BC, SELFPAY ==
[2021-01-16 11:33] LABS: MANUAL DIFF FLAG NO
[2021-01-16 11:44] LABS: Basophils Percent Auto 0.2 % (0-2); Eosinophils Absolute Auto 0.1 X10*3/uL (0.0-0.4); Eosinophils Percent Auto 1.2 % (0-4); Hematocrit 44.1 % (37.0-47.0); Hemoglobin 13.4 g/dl (12.0-16.0); Imm Gran Abs Auto 0.05 X10*3/uL (0.00-0.03); Imm Gran Pct Auto 0.6 % (0.0-0.4); Lymphocytes Absolute Auto 2.3 X10*3/uL (1.2-4.9); Lymphocytes Percent Auto 26.2 % (20-40); Mean Corpuscular HGB Conc 30.4 g/dl (31.0-35.0); Mean Corpuscular Hemoglobin 27.7 pg (27.0-33.0); Mean Corpuscular Volume 91.1 fL (80.0-98.0); Mean Platelet Volume 9.6 fL (9.4-12.3); Monocytes Absolute Auto 0.6 X10*3/uL (0.1-1.2); Monocytes Percent Auto 7.1 % (2-11); Neutrophils Absolute Auto 5.62 x10*3/uL (2.0-8.3); Neutrophils Percent Auto 64.7 % (45-73); Platelet Count 315 X10*3/uL (160-400); Red Blood Count 4.84 X10*6/uL (4.20-5.50); Red Cell Distribution Width 14.7 % (11.0-16.0); White Blood Count 8.7 X10*3/uL (4.8-10.8)
[2021-01-16 11:50] LABS: Estimated Average Glucose 189 mg/dL; Hemoglobin A1c % 8.2 %
[2021-01-16 12:06] LABS: Alanine Aminotransferase 21 U/L (0-31); Anion Gap 12 (12-20); Aspartate Amino Transferase 17 U/L (5-31); Blood Urea Nitrogen 14 mg/dL (9-16); Calcium 9.4 mg/dL (8.4-10.2); Carbon Dioxide 29 mmol/L (22-29); Chloride 103 mmol/L (96-108); Cholesterol 134 mg/dL; Estimated Glomerular Filt Rate > 60; Glucose Fasting 189 mg/dL (60-99); HDL Cholesterol 31 mg/dL; LDL Cholesterol Calculated 82 mg/dl; Potassium 4.5 mmol/L (3.3-5.1); Sodium 139 mmol/L (135-145); Triglycerides 106 mg/dL
== END 2021-01-16 09:01 | disposition home or self-care (01) ==
LOC: HO.HMGCLDS 09:00
PROVIDERS: PCP Internal Medicine; Visit Provider Internal Medicine
DX: E11.65 Type 2 diabetes mellitus with hyperglycemia (principal); E78.00 Pure hypercholesterolemia, unspecified; I10 Essential (primary) hypertension; Z86.2 Personal history of diseases of the blood and blood-forming organs and certain disorders involving the immune mechanism
CPT/HCPCS: 36415; 80048; 80061; 83036; 84450; 84460; 85025

== ENCOUNTER 2021-04-27 07:59 | Outpatient (REF) | payer BC, SELFPAY ==
[2021-04-27 11:37] LABS: Estimated Average Glucose 189 mg/dL; Hemoglobin A1c % 8.2 %
[2021-04-27 11:38] LABS: Alanine Aminotransferase 17 U/L (0-31); Anion Gap 13 (12-20); Aspartate Amino Transferase 18 U/L (5-31); Blood Urea Nitrogen 17 mg/dL (9-16); Calcium 9.6 mg/dL (8.4-10.2); Carbon Dioxide 27 mmol/L (22-29); Chloride 102 mmol/L (96-108); Cholesterol 144 mg/dL; Estimated Glomerular Filt Rate > 60; Glucose Fasting 139 mg/dL (60-99); HDL Cholesterol 33 mg/dL; LDL Cholesterol Calculated 88 mg/dl; Potassium 4.5 mmol/L (3.3-5.1); Sodium 137 mmol/L (135-145); Triglycerides 118 mg/dL
[2021-04-27 12:00] LABS: Vitamin D 25-OH Total 45.6 ng/mL (>30)
== END 2021-04-27 08:00 | disposition home or self-care (01) ==
LOC: HO.HMGCLDS 07:59
PROVIDERS: PCP Internal Medicine; Visit Provider Internal Medicine
DX: E11.65 Type 2 diabetes mellitus with hyperglycemia (principal); E66.01 Morbid (severe) obesity due to excess calories; E78.00 Pure hypercholesterolemia, unspecified; I10 Essential (primary) hypertension
CPT/HCPCS: 36415; 80048; 80061; 82306; 83036; 84450; 84460

== ENCOUNTER 2022-02-22 14:08 | Outpatient (REF) | payer BC, SELFPAY ==
--- NOTE | ~2022-02-22 | MM_ITS ---
EXAMINATION: MM SCREENING DIGITAL BREAST TOMOSYNTHESIS, BILATERAL CLINICAL INFORMATION: Screening. Asymptomatic. The lifetime risk of breast cancer based on the Tyrer-Cuzick Model is 8%. COMPARISON: Mammography: May 07, 2019 and studies dating back to December 10, 2009 TECHNIQUE: Digital breast tomosynthesis is performed in both the craniocaudal and mediolateral oblique views along with computer-aided detection (CAD). Synthesized 2D images are generated from the tomosynthesis. FINDINGS: The breasts are heterogeneously dense, which may obscure small masses (ACR BI-RADS breast composition Category c). There are no significant masses, abnormal calcifications, or other abnormalities. MM/MM tomosynthesis screening BI IMPRESSION: No significant changes ASSESSMENT: BI-RADS 1: Negative RECOMMENDATION: Routine annual mammography screening. This patient's information was entered into a reminder system with a target due date for their next mammogram.
== END 2022-02-22 14:09 | disposition home or self-care (01) ==
LOC: HO.MAMMO 14:08
PROVIDERS: Visit Provider Internal Medicine
DX: Z12.31 Encounter for screening mammogram for malignant neoplasm of breast (principal)
CPT/HCPCS: 77063; 77067

== ENCOUNTER 2022-03-15 11:17 | Outpatient (REF) | payer BC, SELFPAY ==
[2022-03-15 14:11] LABS: Estimated Average Glucose 203 mg/dL; Hemoglobin A1c % 8.7 %
[2022-03-15 14:46] LABS: Microalbum/Creatinine Ratio Ur 17.5 ug/mg cr
[2022-03-15 14:58] LABS: Alanine Aminotransferase 18 U/L (0-31); Anion Gap 12 (12-20); Aspartate Amino Transferase 15 U/L (5-31); Blood Urea Nitrogen 14 mg/dL (9-16); Calcium 9.3 mg/dL (8.4-10.2); Carbon Dioxide 28 mmol/L (22-29); Chloride 104 mmol/L (96-108); Cholesterol 133 mg/dL; Estimated Glomerular Filt Rate > 60; Glucose Fasting 125 mg/dL (60-99); HDL Cholesterol 33 mg/dL; LDL Cholesterol Calculated 75 mg/dl; Potassium 4.5 mmol/L (3.3-5.1); Sodium 139 mmol/L (135-145); Triglycerides 125 mg/dL; Vitamin D 25-OH Total 28.7 ng/mL (>30)
== END 2022-03-15 11:18 | disposition home or self-care (01) ==
LOC: HO.HMGCLDS 11:17
PROVIDERS: PCP Internal Medicine; Visit Provider Internal Medicine
DX: E11.65 Type 2 diabetes mellitus with hyperglycemia (principal); E78.00 Pure hypercholesterolemia, unspecified; Z78.0 Asymptomatic menopausal state
CPT/HCPCS: 36415; 80048; 80061; 82043; 82306; 83036; 84450; 84460

== ENCOUNTER 2022-03-30 11:34 | Outpatient (AMB) | payer BC, SELFPAY ==
--- NOTE | 2022-03-30 11:36 | A.OFFPC_ITS ---
Vital Signs 03/30/22 12:04 Height 5 ft 3 in Weight 248 lb BMI 43.9 BP 116/80 Blood Pressure Location Lt brachial Position Sitting Pulse 84 Pulse Source Pulse Oximeter Pulse Oximetry (%) 94 Oxygen Delivery Method Room Air Intake Visit Reasons: Followup diabetes Intake Note: Pt is here today to f/u DM Allergies amoxicillin [AMOXICILLIN] Allergy (Intermediate, Verified 02/26/23 12:38) RASH Penicillins [PENICILLINS] Allergy (Intermediate, Verified 02/26/23 12:38) RASH Sulfa (Sulfonamide Antibiotics) [SULFA (SULFONAMIDE ANTIBIOTICS)] Allergy (Intermediate, Verified 02/26/23 12:38) RASH, hives sulfamethoxazole [From BACTRIM] Allergy (Intermediate, Verified 02/26/23 12:38) RASH empagliflozin [From Jardiance] Adverse Reaction (Verified 02/26/23 12:38) Nausea Medication List - Last Reconciled 03/30/22 by Viviana Randolph MD acetaminophen (Tylenol) 325 mg PO QID PRN blood sugar diagnostic ([employer] Verio test strips) test blood sugar daily blood-glucose meter ([employer] Verio Meter) use to test blood sugar cetirizine 10 mg PO DAILY cholecalciferol (vitamin D3) 25 mcg PO DAILY dulaglutide (Trulicity) 0.75 mg (0.5 mL) subcut QWEEK gabapentin 100 mg PO TID lancets ([employer]antage[employer] Delica Lancets) Test blood sugar daily lisinopril 10 mg PO DAILY metformin 1,000 mg PO BID omeprazole 40 mg PO QAM paroxetine HCl ER 25 mg PO QAM rosuvastatin 5 mg PO DAILY Tobacco use date assessed: 03/30/22 Fall risk assessment: No Falls in past year Last assessed Fall Risk: 03/30/22 HPI Followup diabetes HPI Details 66 year old lady with diabetes mellitus , dyslipidemia, and osteoarthritis, here today for follow-up. She is currently taking lisinopril, metformin, and rosuvastatin, has been compliant with taking her medications, but has not been compliant with following a healthy diet and has not been getting any exercise at all. Her most recent labs showed hemoglobin A1c at 8.7% with an average sugar in the last 3 months at 203 mg/dL, no microalbuminuria seen, fasting lipids are within normal limits, but vitamin-D level is low at 28. PFSH Medical History Morbid obesity GERD (gastroesophageal reflux disease) Vitamin D deficiency Influenza vaccination declined Diabetes mellitus with hyperglycemia PHN (postherpetic neuralgia) Internal and external hemorrhoids without complication Menopause Iron deficiency anemia Gastritis Type 2 diabetes mellitus without complication, without long-term current use of insulin Varicose vein of leg IBS (irritable bowel syndrome) HTN (hypertension) Shingles Carpal tunnel syndrome of left wrist Internal hemorrhoid, bleeding Osteoarthritis Hyperlipidemia Diabetes Surgical History History of carpal tunnel surgery Tubal ligation status H/O colonoscopy Family History Father Esophageal cancer Alcoholism Mother Diabetes mellitus HTN (hypertension) CVA (cerebral vascular accident) Hyperlipidemia Sister Diabetes mellitus Social History Household Members: Family Housing: House Alcohol intake: never Comment: sleeping Patient Tobacco Use Status: Never used Tobacco e-Cigarette/Vaping Use: Never Used Second Hand Smoke Exposure: No service: No Current occupational status: employed Current occupation: [employer] Cognitive needs: No Hearing needs: No Vision needs: Yes Questionnaire PHQ-9 Over the last 2 weeks, how often have you been bothered by any of the following problems? 54334 - PHQ-9 Billing: Patient declined-do not bill Source: Developed by Drs. Grabiel Zelaya, Jose Cazares and colleagues, with an educational jossue from [employer] Thrive Questionnaire Declines Thrive assessment: Yes Date Thrive assessed: 03/30/22 DOMENICO-7 AMB Questionnaire DOMENICO-7 Date DOMENICO - 7 assessed: 03/30/22 Source: Developed by Drs. Grabiel Zelaya, Jose Cazares and colleagues, with an educational jossue from [employer] DOMENICO-7 Assessment Billing DOMENICO-7 Assessment Tool: pt declined-do not bill Review of Systems Const Denies chills and Denies fever(s) Eyes Reports requires corrective lenses ENT Reports no additional complaints Card Denies chest pain, Denies dyspnea and Denies dyspnea on exertion Resp Denies cough, Denies dyspnea and Denies dyspnea on exertion GI Denies abdominal pain, Denies melena, Denies bloating, Denies hematochezia, Denies change in bowel habits, Reports heartburn (Takes Tums on occasions, which lately has not been helping much) and Denies nausea Denies hematuria, Denies difficulty voiding, Denies dysuria, Denies urinary hesitancy and Denies urinary urgency Musc Reports no additional complaints Neuro Reports no additional complaints and Reports paresthesias (fom prior shingles outbreak) Endo Denies polyphagia, Denies polydipsia and Denies polyuria Aller/Immun Reports no additional complaints Physical exam (Primary Care) Vital Signs: Last Vital Signs Pulse 84 03/30/22 12:04 BP 116/80 03/30/22 12:04 Pulse Ox 94 03/30/22 12:04 Oxygen Delivery Method Room Air 03/30/22 12:04 BMI result Body Mass Index 43.9 Tobacco/Smoking Status: Tobacco use Status Tobacco use date assessed 03/30/22 03/30/22 11:58 Patient Tobacco Use Status Never used Tobacco 03/30/22 11:38 e-Cigarette/Vaping Use Never Used 03/30/22 11:38 Thrive Assessment: Date of Thrive Assessment Date Thrive assessed 03/30/22 03/30/22 11:38 Const General: comfortable and no acute distress Nutritional Appearance: obese Orientation/consciousness: patient oriented x3 HENMT Head: Yes atraumatic Ears: hearing grossly normal bilaterally General nose exam: Normal external nose present Face and sinus: Yes sinuses nontender and Yes face symmetric Mouth: Normal oral and palatal mucosa present Eyes General: appearance normal, both eyes and all related structures Neck Neck: Yes full ROM, Yes no lymphadenopathy and Yes supple Thyroid: Thyroid normal Resp Effort & Inspection: normal respiratory effort and able to speak in complete sentences Auscultation: clear to auscultation bilaterally Cardio Rate: regular rate Rhythm: regular rhythm Heart sounds: S1 normal heart sound present and S2 normal heart sound present GI Inspection: Yes obesity Palpation (GI): Soft to palpation, nontender, no guarding and no masses Auscultation: normal bowel sounds Skin General skin exam: no rashes or lesions noted Neuro General: patient oriented x3, gait normal, Normal light touch and pain sensation and no focal motor deficits Extrem General: Yes full ROM, Yes no joint enlargement, Yes no calf tenderness and Yes normal gait Results Reviewed Results Reviewed: Laboratory Tests 03/15/22 03/15/22 03/15/22 11:22 11:22 11:25 Estimat Average Glucose 203 Hemoglobin A1c % 8.7 Calcium 9.3 Urine Creatinine 74.00 Urine Microalbumin 13.0 Microalb/Creat Ratio 17.5 ENTERED: 03/15/22-1120 OTF VASQUEZ: ORDERED: Met Prof Fast, AST, ALT, Lipid Panel, Vitamin D 25-OH Test Result Flag Reference Site Sodium 139 135-145 mmol/L Potassium 4.5 3.3-5.1 mmol/L CL 104 96-108 mmol/L CO2 28 22-29 mmol/L Gap 12 12-20 BUN 14 9-16 mg/dL Creat 0.61 0.5-1.4 mg/dL EGFR > 60 NOTE: For -[place] individuals, multiply the result by 1.210. Chronic Kidney Disease: Estimated GFR < 60 mL/min/ 1.73m2 Severe Kidney Disease: Estimated GFR < 15 mL/min/1.73m2 FBS 125 H 60-99 mg/dL A fasting glucose from 100-125 mg/dl is considered impaired (pre-diabetes). CA 9.3 8.4-10.2 mg/dL AST (GOT) 15 5-31 U/L ALT (GPT) 18 0-31 U/L Triglyceride 125 mg/dL Desirable Triglyceride: less than 150 mg/dL Borderline High Triglyceride 150-199 mg/dL High Triglyceride: 200-499 mg/dL Very High Triglyceride: greater than or equal to 5OO mg/dL Chol 133 mg/dL Desirable Cholesterol: less than 200 mg/dL Borderline High Cholesterol: 200-239 mg/dL High Cholesterol: greater than 239 mg/dL LDL Calculated 75 mg/dl Desirable LDL: less than 100 mg/dL Near Optimal/Above Optimal LDL: 110-129 mg/dL Borderline High LDL: 130-159 mg/dL High LDL: 160-189 mg/dL Very High LDL: greater than or equal to 190 mg/dL HDL 33 mg/dL Desirable HDL: greater than 40 mg/dL Note: This HDL assay may give artificially low results in patients with liver disease. 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 Continue metformin 1000 mg 1 tablet taken twice a day with food, and increase dose of dulaglutide to 3 mg given subcutaneously once a week. continue to check fasting blood sugar at home, maintain log and bring to next appointment for review. Reinforced diabetic diet and regular exercise with patient. Counseled regarding importance of yearly diabetes retinopathy screening. Patient advised to inspect feet daily, for any signs of injury, callus or infection. Compliance with diet and regular exercise again stressed. Blood pressure goal is less than 130/80, goal LDL is less than 100 and goal hemoglobin A1c is less than 7% follow-up appointment made in--3-months, after fasting labs done. (2) Depression: Code(s): F32.9 - Major depressive disorder, single episode, unspecified Qualifiers: Depression Type: major depressive disorder Major depression recurrence: recurrent Active/Remission status: remission status unspecified Qualified Code(s): F33.9 - Major depressive disorder, recurrent, unspecified Plan: Continue paroxetine (3) Hyperlipidemia: Code(s): E78.5 - Hyperlipidemia, unspecified Qualifiers: Hyperlipidemia type: pure hypercholesterolemia Qualified Code(s): E78.00 - Pure hypercholesterolemia, unspecified Plan: Reviewed recent fasting lipid profile with patient with levels at goal except for low good cholesterol . Continue taking rosuvastatin 5 mg once a day , in addition to adherence to low-cholesterol diet and regular exercise, at least 30 minutes 3 to 4 times a week. Advised patient to make healthy food choices, eat more fruits, vegetables, whole grains, wild caught fish and low-fat dairy. Limit amount of meat and fried or fatty food products, as well as processed foods and fast foods. Follow-up scheduled with repeat fasting lipid panel in 3 months. (4) Vitamin D deficiency: Code(s): E55.9 - Vitamin D deficiency, unspecified Plan: Continue taking vitamin-D 3 but increase dose to 2000 units daily (5) Morbid obesity: Code(s): E66.01 - Morbid (severe) obesity due to excess calories Plan: Referred to medical management clinic in [place] (6) GERD (gastroesophageal reflux disease): Code(s): K21.9 - Gastro-esophageal reflux disease without esophagitis Plan: Continue with famotidine 40 mg daily (7) Influenza vaccination declined: Code(s): Z28.21 - Immunization not carried out because of patient refusal Orders: Referrals Medical Weight Management Referral F32.9 - Major depressive disorder, single episode, unspecified, E11.65 - Type 2 diabetes mellitus with hyperglycemia, K21.9 - Gastro-esophageal reflux disease without esophagitis, E66.01 - Morbid (severe) obesity due to excess calories Medications: New famotidine 40 mg PO DAILY 30 tabs 5RF cholecalciferol (vitamin D3) 1,250 mcg PO QWEEK 13 caps 0RF 3 months Changed From dulaglutide schedule next PCP appt for more refills 0.75 mg (0.5 mL) subcut QWEEK 6 mL 1RF E11.65 - Type 2 diabetes mellitus with hyperglycemia To dulaglutide schedule next PCP appt for more refills 1.5 mg (0.5 mL) subcut QWEEK 2 mL 5RF E11.65 - Type 2 diabetes mellitus with hyperglycemia From paroxetine HCl ER Schedule next PCP appt for more refills 25 mg PO QAM 90 tabs 0RF F32.9 - Major depressive disorder, single episode, unspecified To paroxetine HCl ER 25 mg PO QAM 90 tabs 1RF F32.9 - Major depressive disorder, single episode, unspecified Review Patient declined Pneumococcal Vaccine: 03/30/22 Flu Vaccine not done: patient reason (declined) Coding Level of Care Code Est Pt Level 4 (00763) Diagnoses Type 2 diabetes mellitus with hyperglycemia, without long-term current use of insulin E11.65 Diabetes mellitus type: type 2 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
[2022-03-30 12:04] VITALS: BP 116/80; PULSE 84; O2SAT 94; BMI 43.9
== END 2022-03-30 12:52 | disposition home or self-care (01) ==
LOC: HO.HMGC 11:34
PROVIDERS: PCP Internal Medicine; Visit Provider Internal Medicine
DX: E11.65 Type 2 diabetes mellitus with hyperglycemia (principal); F33.9 Major depressive disorder, recurrent, unspecified; E78.00 Pure hypercholesterolemia, unspecified; E55.9 Vitamin D deficiency, unspecified; E66.01 Morbid (severe) obesity due to excess calories; K21.9 Gastro-esophageal reflux disease without esophagitis; Z28.21 Immunization not carried out because of patient refusal
CPT/HCPCS: 99499

== ENCOUNTER 2022-07-16 09:08 | Outpatient (REF) | payer BC, SELFPAY ==
[2022-07-16 12:22] LABS: Creatinine Urine 102.39 mg/dL; Microalbum/Creatinine Ratio Ur 8.7 ug/mg cr
[2022-07-16 12:48] LABS: Estimated Average Glucose 192 mg/dL; Hemoglobin A1c % 8.3 %
[2022-07-16 12:50] LABS: Alanine Aminotransferase 16 U/L (0-31); Albumin Level 4.1 g/dL (3.5-5.0); Alkaline Phosphatase 113 U/L (39-117); Anion Gap 14 (12-20); Aspartate Amino Transferase 13 U/L (5-31); Bilirubin Total 0.8 mg/dL (0.0-1.0); Blood Urea Nitrogen 19 mg/dL (9-16); Calcium 9.9 mg/dL (8.4-10.2); Carbon Dioxide 26 mmol/L (22-29); Chloride 106 mmol/L (96-108); Cholesterol 129 mg/dL; Estimated Glomerular Filt Rate > 60; Glucose Fasting 144 mg/dL (60-99); HDL Cholesterol 38 mg/dL; LDL Cholesterol Calculated 77 mg/dl; Potassium 4.5 mmol/L (3.3-5.1); Sodium 141 mmol/L (135-145); Total Protein 7.3 g/dL (6.5-8.0); Triglycerides 71 mg/dL; Vitamin D 25-OH Total 59.1 ng/mL (>30)
== END 2022-07-16 09:09 | disposition home or self-care (01) ==
LOC: HO.HMGCLDS 09:08
PROVIDERS: PCP Internal Medicine; Visit Provider Internal Medicine
DX: E55.9 Vitamin D deficiency, unspecified (principal); E66.01 Morbid (severe) obesity due to excess calories; E78.00 Pure hypercholesterolemia, unspecified; K21.9 Gastro-esophageal reflux disease without esophagitis; Z78.0 Asymptomatic menopausal state; E11.65 Type 2 diabetes mellitus with hyperglycemia
CPT/HCPCS: 36415; 80053; 80061; 82043; 82306; 83036

== ENCOUNTER 2022-10-25 07:26 | Outpatient (REF) | payer BC, SELFPAY ==
[2022-10-25 12:08] LABS: Estimated Average Glucose 163 mg/dL; Hemoglobin A1c % 7.3 %
[2022-10-25 12:29] LABS: Alanine Aminotransferase 17 U/L (0-31); Anion Gap 14 (12-20); Aspartate Amino Transferase 17 U/L (5-31); Blood Urea Nitrogen 16 mg/dL (9-16); Calcium 9.9 mg/dL (8.4-10.2); Carbon Dioxide 27 mmol/L (22-29); Chloride 104 mmol/L (96-108); Cholesterol 119 mg/dL; Estimated Glomerular Filt Rate > 60; Glucose Fasting 144 mg/dL (60-99); HDL Cholesterol 37 mg/dL; LDL Cholesterol Calculated 67 mg/dl; Potassium 4.6 mmol/L (3.3-5.1); Sodium 140 mmol/L (135-145); Triglycerides 77 mg/dL
[2022-10-25 12:34] LABS: Vitamin D 25-OH Total 66.2 ng/mL (>30)
== END 2022-10-25 07:27 | disposition home or self-care (01) ==
LOC: HO.HMGCLDS 07:26
PROVIDERS: PCP Internal Medicine; Visit Provider Internal Medicine
DX: E11.65 Type 2 diabetes mellitus with hyperglycemia (principal); E55.9 Vitamin D deficiency, unspecified; E66.01 Morbid (severe) obesity due to excess calories; E78.5 Hyperlipidemia, unspecified; Z78.0 Asymptomatic menopausal state
CPT/HCPCS: 36415; 80048; 80061; 82306; 83036; 84450; 84460

== ENCOUNTER 2022-10-30 12:54 | Outpatient (AMB) | payer BC, SELFPAY ==
[2022-10-30 12:55] VITALS: BP 126/72; PULSE 80; O2SAT 97; BMI 41.3
--- NOTE | 2022-10-30 12:55 | A.OFFPC_ITS ---
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 Accompanied by: Self / Same As Patient Allergies amoxicillin [AMOXICILLIN] Allergy (Intermediate, Verified 10/30/22 13:15) RASH Penicillins [PENICILLINS] Allergy (Intermediate, Verified 10/30/22 13:15) RASH Sulfa (Sulfonamide Antibiotics) [SULFA (SULFONAMIDE ANTIBIOTICS)] Allergy (Intermediate, Verified 10/30/22 13:15) RASH, hives sulfamethoxazole [From BACTRIM] Allergy (Intermediate, Verified 10/30/22 13:15) RASH empagliflozin [From Jardiance] Adverse Reaction (Verified 10/30/22 13:15) Nausea Medication List - Last Reconciled 10/30/22 by Viviana Randolph MD acetaminophen (Tylenol) 325 mg PO QID PRN blood sugar diagnostic ([employer] Verio test strips) test blood sugar daily blood-glucose meter ([employer] Verio Meter) use to test blood sugar cetirizine 10 mg PO DAILY cholecalciferol (vitamin D3) 50 mcg PO DAILY dulaglutide 3 mg (0.5 mL) subcut QWEEK 1 month famotidine 40 mg PO DAILY gabapentin 100 mg PO BID 30 days lancets ([employer] Delica Lancets) Test blood sugar daily lisinopril 10 mg PO DAILY metformin 1,000 mg PO BID paroxetine HCl ER 25 mg PO QAM rosuvastatin 5 mg PO DAILY Tobacco use date assessed: 07/25/22 Fall risk assessment: No Falls in past year Last assessed Fall Risk: 10/30/22 Dental Screening Dental Screen Date: 10/30/22 Did you have a dental visit in the last 12 months?: Yes Did you have a dental problem in the last 6 months where you did not have access to dental care?: No Was dental information given to patient?: Patient has dentist HPI 3 month Follow up DM, Dyslipidemia and HTN HPI Details 67-year-old lady here today for follow-up on her diabetes mellitus, dyslipidemia and hypertension. She is currently taking metformin 1000 mg twice a day and Trulicity dose was increased to 3 mg given once a week on her last visit heret, currently on rosuvastatin 5 mg daily for her cholesterol and is on lisinopril for her blood pressure control. She has lost weight, and blood sugars have been running within normal range over the last several months. She had recent fasting labs done which showed hemoglobin A1c now down to 7.3%, and normal electrolytes, renal function liver enzymes and lipid levels as well as vitamin-D level. She has been feeling well with no other complaints at present time. [facility] Medical History Carpal tunnel syndrome of left wrist Diabetes Diabetes mellitus with hyperglycemia Gastritis GERD (gastroesophageal reflux disease) HTN (hypertension) Hyperlipidemia IBS (irritable bowel syndrome) Influenza vaccination declined Internal and external hemorrhoids without complication Internal hemorrhoid, bleeding Iron deficiency anemia Menopause Morbid obesity Osteoarthritis PHN (postherpetic neuralgia) Shingles Type 2 diabetes mellitus without complication, without long-term current use of insulin Varicose vein of leg Vitamin D deficiency Surgical History H/O colonoscopy History of carpal tunnel surgery Tubal ligation status Family History Father Esophageal cancer Alcoholism Mother Diabetes mellitus HTN (hypertension) CVA (cerebral vascular accident) Hyperlipidemia Sister Diabetes mellitus Social History Household Members: Family Housing: House Alcohol intake: never Patient Tobacco Use Status: Never used Tobacco e-Cigarette/Vaping Use: Never Used Second Hand Smoke Exposure: No service: No Current occupational status: employed 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 Grabiel Zelaya, Anabela Hayden, Jose Wright and colleagues, with an educational jossue from [employer]. Review of Systems Const Denies chills, Denies fever(s) and Reports weight loss Eyes Reports no additional complaints and Reports requires corrective lenses ENT Reports no additional complaints Card Denies chest pain, Denies dyspnea and Denies dyspnea on exertion Resp Denies cough, Denies dyspnea and Denies dyspnea on exertion GI Denies abdominal pain, Denies melena, Denies bloating, Denies hematochezia, Denies change in bowel habits, Reports heartburn (Takes Tums on occasions, which lately has not been helping much) and Denies nausea Denies hematuria, Denies difficulty voiding, Denies dysuria, Denies urinary hesitancy and Denies urinary urgency Musc Reports no additional complaints Skin/Breast Denies breast pain, Denies breast mass, Denies dry skin, Denies lesions and Denies rash Neuro Reports no additional complaints and Reports paresthesias Psych Reports no additional complaints Endo Denies polyphagia, Denies polydipsia and Denies polyuria Lenny/Lymph Denies easy bleeding and Denies easy bruising Aller/Immun Reports no additional complaints Physical exam (Primary Care) Vital Signs: Last Vital Signs Pulse 80 10/30/22 12:55 BP 126/72 10/30/22 12:55 Pulse Ox 97 10/30/22 12:55 BMI result Body Mass Index 41.3 Tobacco/Smoking Status: Tobacco use Status Tobacco use date assessed 07/25/22 10/30/22 12:57 Patient Tobacco Use Status Never used Tobacco 10/30/22 12:57 e-Cigarette/Vaping Use Never Used 10/30/22 12:57 Thrive Assessment: Date of Thrive Assessment Date Thrive assessed 07/25/22 10/30/22 12:57 Const General: comfortable and no acute distress Nutritional Appearance: obese Orientation/consciousness: patient oriented x3 HENMT Head: Yes atraumatic Ears: hearing grossly normal bilaterally General nose exam: Normal external nose present Face and sinus: Yes sinuses nontender and Yes face symmetric Mouth: Normal oral and palatal mucosa present Eyes General: appearance normal, both eyes and all related structures Neck Neck: Yes full ROM, Yes no lymphadenopathy and Yes supple Thyroid: Thyroid normal Resp Effort & Inspection: normal respiratory effort and able to speak in complete sentences Auscultation: clear to auscultation bilaterally Cardio Rate: regular rate Rhythm: regular rhythm Heart sounds: S1 normal heart sound present and S2 normal heart sound present GI Inspection: Yes obesity Palpation (GI): Soft to palpation, nontender, no guarding and no masses Auscultation: normal bowel sounds Skin General skin exam: no rashes or lesions noted Neuro General: patient oriented x3, gait normal, Normal light touch and pain sensation and no focal motor deficits Extrem General: Yes full ROM, Yes no joint enlargement, Yes no calf tenderness and Yes normal gait Results Reviewed Results Reviewed: RUN: 10/30/22 1319 PAGE 1 [facility] [address] [place] [id number] Sound Tester: Bernard Quiroz M.D. Specimen Inquiry Name: Carolina White Age/Sex: 67/F : 1955 Unit#: [id number] Attend Dr: Viviana Randolph MD Re10/25/22 Status: DEP [facility]: SPEC : [id number] GUNNAR: 10/25/22 STATUS: COMP REQ : [id number] RECD: 10/25/[address]: Viviana Randolph MD COMP: 10/25/224 ENTERED: 10/25/22 [facility]: ORDERED: Met Prof Fast, AST, ALT, Lipid Panel, Vitamin D 25-OH Test Result Flag Reference Site Sodium 140 135-145 mmol/L Potassium 4.6 3.3-5.1 mmol/L CL 104 96-108 mmol/L CO2 27 22-29 mmol/L Gap 14 12-20 BUN 16 9-16 mg/dL Creat 0.64 0.5-1.4 mg/dL EGFR > 60 NOTE: For -Tajik individuals, multiply the result by 1.210. Chronic Kidney Disease: Estimated GFR < 60 mL/min/1.73m2 Severe Kidney Disease: Estimated GFR < 15 mL/min/1.73m2 FBS 144 H 60-99 mg/dL A fasting glucose of 126 mg/dl or greater on more than one occasion is considered diagnostic of diabetes. CA 9.9 8.4-10.2 mg/dL AST (GOT) 17 5-31 U/L ALT (GPT) 17 0-31 U/L Triglyceride 77 mg/dL Desirable Triglyceride: less than 150 mg/dL Borderline High Triglyceride 150-199 mg/dL High Triglyceride: 200-499 mg/dL Very High Triglyceride: greater than or equal to 5OO mg/dL Chol 119 mg/dL Desirable Cholesterol: less than 200 mg/dL Borderline High Cholesterol: 200-239 mg/dL High Cholesterol: greater than 239 mg/dL LDL Calculated 67 mg/dl Desirable LDL: less than 100 mg/dL Near Optimal/Above Optimal LDL: 110-129 mg/dL Borderline High LDL: 130-159 mg/dL High LDL: 160-189 mg/dL Very High LDL: greater than or equal to 190 mg/dL HDL 37 mg/dL Desirable HDL: greater than 40 mg/dL Note: This HDL assay may give artificially low results in patients with liver disease. Vit D 25-OH Tot 66.2 >30 ng/mL Health Based Reference Values* < 20 ng/mL Deficient 20-30 ng/mL Insufficient > 30 ng/mL Sufficient Laboratory Tests 10/25/22 07:40 Estimat Average Glucose 163 Hemoglobin A1c % 7.3 Assessment and Plan Assessment & Plan (1) GERD (gastroesophageal reflux disease): Code(s): K21.9 - Gastro-esophageal reflux disease without esophagitis Plan: Prescription sent for pantoprazole to take 40 mg capsule once a day an hour before eating for the next 2 months. Advised to raise head of bed up when sleeping, avoidance of eating a heavy meal at night, and avoid all triggers for heartburn symptoms If after stopping the medications symptoms persist will refer for an upper endoscopy (2) Morbid obesity: Code(s): E66.01 - Morbid (severe) obesity due to excess calories Plan: Has lost weight, Recommended focusing on improving your health instead of dieting. : Eat Mediterranean diet, limit foods high in fat, sugar, and calories, eat slowly, pay attention to portion sizes, plan your meals ahead of time, start regular physical activity 150 minutes of moderate intensity exercise or 90 minutes/week of vigorous exercise and increase water intake. (3) Diabetes mellitus with hyperglycemia: Code(s): E11.65 - Type 2 diabetes mellitus with hyperglycemia Plan: Continue Trulicity and metformin at the same dose, stressed importance of adhering to healthy eating habits and getting regular exercise at least 15 minutes on daily basis. (4) Hyperlipidemia: Code(s): E78.5 - Hyperlipidemia, unspecified Qualifiers: Hyperlipidemia type: pure hypercholesterolemia Qualified Code(s): E78.00 - Pure hypercholesterolemia, unspecified Plan: Continued on rosuvastatin 5 mg daily Orders: Orders Lipid Panel 02/15/23 E11.65 - Type 2 diabetes mellitus with hyperglycemia, E55.9 - Vitamin D deficiency, unspecified, E66.01 - Morbid (severe) obesity due to excess calories, E78.5 - Hyperlipidemia, unspecified, K21.9 - Gastro-esophageal reflux disease without esophagitis, Z78.0 - Asymptomatic menopausal state Basic Metabolic Panel Fasting 02/15/23 E11.65 - Type 2 diabetes mellitus with hyperglycemia, E55.9 - Vitamin D deficiency, unspecified, E66.01 - Morbid (severe) obesity due to excess calories, E78.5 - Hyperlipidemia, unspecified, K21.9 - Gastro-esophageal reflux disease without esophagitis, Z78.0 - Asymptomatic menopausal state Alanine Aminotransferase 02/15/23 E11.65 - Type 2 diabetes mellitus with hyperglycemia, E55.9 - Vitamin D deficiency, unspecified, E66.01 - Morbid (severe) obesity due to excess calories, E78.5 - Hyperlipidemia, unspecified, K21.9 - Gastro-esophageal reflux disease without esophagitis, Z78.0 - Asymptomatic menopausal state Aspartate Amino Transferase 02/15/23 E11.65 - Type 2 diabetes mellitus with hyperglycemia, E55.9 - Vitamin D deficiency, unspecified, E66.01 - Morbid (severe) obesity due to excess calories, E78.5 - Hyperlipidemia, unspecified, K21.9 - Gastro-esophageal reflux disease without esophagitis, Z78.0 - Asymptomatic menopausal state Microalbumin, Random (w Creat) 02/15/23 E11.65 - Type 2 diabetes mellitus with hyperglycemia, E55.9 - Vitamin D deficiency, unspecified, E66.01 - Morbid (severe) obesity due to excess calories, E78.5 - Hyperlipidemia, unspecified, K21.9 - Gastro-esophageal reflux disease without esophagitis, Z78.0 - Asymptomatic menopausal state Vitamin D 25-OH Total 12/01/23 E11.65 - Type 2 diabetes mellitus with hyperglycemia, E55.9 - Vitamin D deficiency, unspecified, E66.01 - Morbid (severe) obesity due to excess calories, E78.5 - Hyperlipidemia, unspecified, K21.9 - Gastro-esophageal reflux disease without esophagitis, Z78.0 - Asymptomatic menopausal state Complete Blood Count Auto Diff 02/15/23 E11.65 - Type 2 diabetes mellitus with hyperglycemia, E55.9 - Vitamin D deficiency, unspecified, E66.01 - Morbid (severe) obesity due to excess calories, E78.5 - Hyperlipidemia, unspecified, K21.9 - Gastro-esophageal reflux disease without esophagitis, Z78.0 - Asymptomatic menopausal state Hemoglobin A1c 02/15/23 E11.65 - Type 2 diabetes mellitus with hyperglycemia, E55.9 - Vitamin D deficiency, unspecified, E66.01 - Morbid (severe) obesity due to excess calories, E78.5 - Hyperlipidemia, unspecified, K21.9 - Gastro- esophageal reflux disease without esophagitis, Z78.0 - Asymptomatic menopausal state Medications: New pantoprazole 40 mg PO DAILY 30 tabs 1RF K21.9 - Gastro-esophageal reflux disease without esophagitis Coding Level of Care Code Est Pt Level 4 (86141) Diagnoses GERD (gastroesophageal reflux disease) K21.9 Morbid obesity E66.01 Diabetes mellitus with hyperglycemia E11.65 Hyperlipidemia E78.00 Hyperlipidemia type: pure hypercholesterolemia
== END 2022-10-30 15:10 | disposition home or self-care (01) ==
PROVIDERS: PCP Internal Medicine; Visit Provider Internal Medicine
DX: K21.9 Gastro-esophageal reflux disease without esophagitis (principal); E66.01 Morbid (severe) obesity due to excess calories; E11.65 Type 2 diabetes mellitus with hyperglycemia; Z68.41 Body mass index [BMI] 40.0-44.9, adult; E78.00 Pure hypercholesterolemia, unspecified
CPT/HCPCS: 99214

== ENCOUNTER 2023-02-20 07:23 | Outpatient (REF) | payer MEDICARE, SELFPAY ==
[2023-02-20 11:10] LABS: MANUAL DIFF FLAG NO
[2023-02-20 11:36] LABS: Basophils Percent Auto 0.3 % (0-2); Eosinophils Absolute Auto 0.2 X10*3/uL (0.0-0.4); Eosinophils Percent Auto 1.8 % (0-4); Hematocrit 44.3 % (37.0-47.0); Hemoglobin 13.6 g/dl (12.0-16.0); Imm Gran Abs Auto 0.03 X10*3/uL (0.00-0.03); Imm Gran Pct Auto 0.3 % (0.0-0.4); Lymphocytes Absolute Auto 4.1 X10*3/uL (1.2-4.9); Lymphocytes Percent Auto 40.8 % (20-40); Mean Corpuscular HGB Conc 30.7 g/dl (31.0-35.0); Mean Corpuscular Hemoglobin 28.3 pg (27.0-33.0); Mean Corpuscular Volume 92.3 fL (80.0-98.0); Mean Platelet Volume 9.4 fL (9.4-12.3); Monocytes Absolute Auto 0.7 X10*3/uL (0.1-1.2); Neutrophils Percent Auto 49.8 % (45-73); Platelet Count 294 X10*3/uL (160-400); Red Cell Distribution Width 15.1 % (11.0-16.0)
[2023-02-20 11:42] LABS: Estimated Average Glucose 169 mg/dL; Hemoglobin A1c % 7.5 % (<6.0)
[2023-02-20 11:55] LABS: Creatinine Urine 78.37 mg/dL; Microalbum/Creatinine Ratio Ur 10.2 ug/mg cr (<30)
[2023-02-20 12:04] LABS: Alanine Aminotransferase 14 U/L (0-31); Anion Gap 11 (12-20); Aspartate Amino Transferase 18 U/L (5-31); Blood Urea Nitrogen 15 mg/dL (9-16); Calcium 9.5 mg/dL (8.4-10.2); Carbon Dioxide 28 mmol/L (22-29); Chloride 104 mmol/L (96-108); Cholesterol 113 mg/dL (<200); Estimated Glomerular Filt Rate > 60; Glucose Fasting 122 mg/dL (60-99); HDL Cholesterol 33 mg/dL (>40); LDL Cholesterol Calculated 56 mg/dL (<100); Potassium 4.1 mmol/L (3.3-5.1); Sodium 139 mmol/L (135-145); Triglycerides 122 mg/dL (<150)
[2023-02-20 12:20] LABS: Vitamin D 25-OH Total 53.4 ng/mL (>30)
== END 2023-02-20 07:24 | disposition home or self-care (01) ==
LOC: HO.HMGCLDS 07:23
PROVIDERS: PCP Internal Medicine; Visit Provider Internal Medicine
DX: E66.01 Morbid (severe) obesity due to excess calories (principal); K21.9 Gastro-esophageal reflux disease without esophagitis; E55.9 Vitamin D deficiency, unspecified; E11.65 Type 2 diabetes mellitus with hyperglycemia; E78.5 Hyperlipidemia, unspecified; Z78.0 Asymptomatic menopausal state
CPT/HCPCS: 36415; 80048; 80061; 82043; 82306; 82570; 83036; 84450; 84460; 85025

== ENCOUNTER 2023-02-26 11:44 | Outpatient (AMB) | payer MEDICARE, SELFPAY ==
--- NOTE | 2023-02-26 12:18 | A.OFFPC_ITS ---
Vital Signs 02/26/23 12:19 Height 5 ft 3 in Weight 236 lb BMI 41.8 BP 124/72 Blood Pressure Location Lt brachial Position Sitting Pulse 70 Pulse Source Pulse Oximeter Pulse Oximetry (%) 96 Oxygen Delivery Method Room Air Intake Visit Reasons: follow up DM, Dyslipidemia and HTN Intake Note: Pt is here to follow up for her lab results Allergies amoxicillin [AMOXICILLIN] Allergy (Intermediate, Verified 02/26/23 12:38) RASH Penicillins [PENICILLINS] Allergy (Intermediate, Verified 02/26/23 12:38) RASH Sulfa (Sulfonamide Antibiotics) [SULFA (SULFONAMIDE ANTIBIOTICS)] Allergy (Intermediate, Verified 02/26/23 12:38) RASH, hives sulfamethoxazole [From BACTRIM] Allergy (Intermediate, Verified 02/26/23 12:38) RASH empagliflozin [From Jardiance] Adverse Reaction (Verified 02/26/23 12:38) Nausea Medication List - Last Reconciled 02/26/23 by Viviana Randolph MD acetaminophen (Tylenol) 325 mg PO QID PRN blood sugar diagnostic (Coolirisuch Verio test strips) test blood sugar daily blood-glucose meter (Coolirisuch Verio Meter) use to test blood sugar cetirizine 10 mg PO DAILY dulaglutide 3 mg (0.5 mL) subcut QWEEK 1 month famotidine 40 mg PO DAILY gabapentin 100 mg PO BID 30 days lancets (AgendiaTouch Delica Lancets) Test blood sugar daily lisinopril 10 mg PO DAILY metformin 1,000 mg PO BID paroxetine HCl 30 mg PO QAM rosuvastatin 5 mg PO DAILY Tobacco use date assessed: 02/26/23 Fall risk assessment: No Falls in past year Last assessed Fall Risk: 02/26/23 Dental Screening Dental Screen Date: 02/26/23 Did you have a dental visit in the last 12 months?: No Did you have a dental problem in the last 6 months where you did not have access to dental care?: No Was dental information given to patient?: No HPI follow up DM, Dyslipidemia and HTN HPI Details [age]-year-old lady here today for follow- up on her diabetes mellitus, lipids and hypertension. She has been taking her medications as directed, however she has not really been able to exercise much due to some personal issues but has been trying to follow recommended diet. Does not want to get flu vaccine or COVID booster but is willing to get her Prevnar 20 today. Overdue for her with diabetes retinopathy screening, which she states has not in the budget at present time as it is not covered by her insurance. [facility] Medical History Morbid obesity GERD (gastroesophageal reflux disease) Vitamin D deficiency Influenza vaccination declined Diabetes mellitus with hyperglycemia PHN (postherpetic neuralgia) Internal and external hemorrhoids without complication Menopause Iron deficiency anemia Gastritis Type 2 diabetes mellitus without complication, without long-term current use of insulin Varicose vein of leg IBS (irritable bowel syndrome) HTN (hypertension) Shingles Carpal tunnel syndrome of left wrist Internal hemorrhoid, bleeding Osteoarthritis Hyperlipidemia Diabetes Surgical History History of carpal tunnel surgery Tubal ligation status H/O colonoscopy Family History Father Esophageal cancer Alcoholism Mother Diabetes mellitus HTN (hypertension) CVA (cerebral vascular accident) Hyperlipidemia Sister Diabetes mellitus Social History Household Members: Family Housing: House Alcohol intake: never Comment: sleeping Patient Tobacco Use Status: Never used Tobacco e-Cigarette/Vaping Use: Never Used Second Hand Smoke Exposure: No service: No Current occupational status: employed 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 How often do you have a drink containing alcohol?: Never Total Score: 0 DOMENICO-7 AMB Questionnaire DOMENICO-7 Date DOMENICO - 7 assessed: 07/25/22 Source: Developed by Drs. Grabiel Zelaya, Anabela Hayden, Jose Wright and colleagues, with an educational jossue from [employer]. Review of Systems Const Denies chills, Denies fever(s) and Reports weight loss Eyes Reports requires corrective lenses ENT Reports no additional complaints Card Denies chest pain, Denies dyspnea and Denies dyspnea on exertion Resp Denies cough, Denies dyspnea and Denies dyspnea on exertion GI Denies abdominal pain, Denies melena, Denies bloating, Denies hematochezia, Denies change in bowel habits, Reports heartburn (Takes Tums on occasions, which lately has not been helping much) and Denies nausea Denies hematuria, Denies difficulty voiding, Denies dysuria, Denies urinary hesitancy and Denies urinary urgency Musc Reports no additional complaints Skin/Breast Denies breast pain, Denies breast mass, Denies dry skin, Denies lesions and Denies rash Neuro Reports no additional complaints and Reports paresthesias (fom prior shingles outbreak) Psych Reports no additional complaints Endo Denies polyphagia, Denies polydipsia and Denies polyuria Lenny/Lymph Denies easy bleeding and Denies easy bruising Aller/Immun Reports no additional complaints Physical exam (Primary Care) Vital Signs: Last Vital Signs Pulse 70 02/26/23 12:19 BP 124/72 02/26/23 12:19 Pulse Ox 96 02/26/23 12:19 Oxygen Delivery Method Room Air 02/26/23 12:19 BMI result Body Mass Index 41.8 Tobacco/Smoking Status: Tobacco use Status Tobacco use date assessed 02/26/23 02/26/23 12:25 Patient Tobacco Use Status Never used Tobacco 02/26/23 12:25 e-Cigarette/Vaping Use Never Used 02/26/23 12:25 Thrive Assessment: Date of Thrive Assessment Date Thrive assessed 07/25/22 02/26/23 12:25 Const General: comfortable and no acute distress Nutritional Appearance: obese Orientation/consciousness: patient oriented x3 HENMT Head: Yes atraumatic Ears: hearing grossly normal bilaterally General nose exam: Normal external nose present Face and sinus: Yes sinuses nontender and Yes face symmetric Mouth: Normal oral and palatal mucosa present Eyes General: appearance normal, both eyes and all related structures Neck Neck: Yes full ROM, Yes no lymphadenopathy and Yes supple Thyroid: Thyroid normal Resp Effort & Inspection: normal respiratory effort and able to speak in complete sentences Auscultation: clear to auscultation bilaterally Cardio Rate: regular rate Rhythm: regular rhythm Heart sounds: S1 normal heart sound present and S2 normal heart sound present GI Inspection: Yes obesity Palpation (GI): Soft to palpation, nontender, no guarding and no masses Auscultation: normal bowel sounds Skin General skin exam: no rashes or lesions noted Neuro General: patient oriented x3, gait normal, Normal light touch and pain sensation and no focal motor deficits Extrem General: Yes full ROM, Yes no joint enlargement, Yes no calf tenderness and Yes normal gait Immunizations pneumoc 20-kendall conj-dip cr(PF) 0.5 mL IM syringe Performing Provider: Viviana Randolph MD Performing Location: [facility] Administered by: DREA Shah on 02/26/23 12:52 Dose Route Admin Location Dispensed Lot Number Expiration Date ND Pharmacy Technician Inpatient 0.5 mL IM Right Deltoid 0.5 mL [id number] 10/15/23 4961-3308-14 [employer] VIS Given Date VIS Provided VIS Publication Date 02/26/23 Single Vaccine 21 Eligibility Eligibility Date Funding Source Not [facility] Eligible 02/26/23 Private Results Reviewed Results Reviewed: Name: Carolina White Age/Sex: 67/F : 1955 Unit#: [id number] Attend Dr: Viviana Randolph MD Re02/20/23 Status: DEP REF Location: [facility] Disch: SPEC : [id number] GUNNAR: 02/20/23 STATUS: COMP REQ : [id number] RECD: 02/20/[address]: Viviana Randolph MD COMP: 02/20/23 ENTERED: 02/20/[address]: ORDERED: CBC Auto Diff Test Result Flag Reference Site WBC 10.0 4.8-10.8 X10*3/uL RBC 4.80 4.20-5.50 X10*6/uL HGB 13.6 12.0-16.0 g/dl HCT 44.3 37.0-47.0 % MCV 92.3 80.0-98.0 fL MCH 28.3 27.0-33.0 pg MCHC 30.7 L 31.0-35.0 g/dl RDW 15.1 11.0-16.0 % PLT 294 160-400 X10*3/uL MPV 9.4 9.4-12.3 fL Neut Pct Auto 49.8 45-73 % ImGran Pct Auto 0.3 0.0-0.4 % Lymp Pct Auto 40.8 H 20-40 % Riley Pct Auto 7.0 2-11 % Eos Pct Auto 1.8 0-4 % Baso Pct Auto 0.3 0-2 % NRBC Pct Auto 0.0 0.0-0.2 /100WBC ANC Neut Abs # 5.0 2.0-8.3 x10*3/uL ImGran Abs Auto 0.03 0.00-0.03 X10*3/uL Lymph Abs Auto 4.1 1.2-4.9 X10*3/uL Riley Abs Auto 0.7 0.1-1.2 X10*3/uL Eos Abs Auto 0.2 0.0-0.4 X10*3/uL Baso Abs Auto 0.0 0.0-0.2 X10*3/uL NRBC Abs Auto 0.000 0.0-0.012 X10*3/uL SPEC : [id number] GUNNAR: 02/20/23 STATUS: COMP REQ : [id number] RECD: 02/20/[address]: Viviana Randolph MD COMP: 02/20/23 ENTERED: 02/20/[address] [facility] [address]: ORDERED: Met Prof Fast, AST, ALT, Lipid Panel, Vitamin D 25-OH Test Result Flag Reference Site Sodium 139 135-145 mmol/L Potassium 4.1 3.3-5.1 mmol/L CL 104 96-108 mmol/L CO2 28 22-29 mmol/L Gap 11 L 12-20 BUN 15 9-16 mg/dL Creat 0.58 0.5-1.4 mg/dL EGFR > 60 NOTE: For -Citizen Of [place] individuals, multiply the result by 1.210. Chronic Kidney Disease: Estimated GFR < 60 mL/min/1.73m2 Severe Kidney Disease: Estimated GFR < 15 mL/min/1.73m2 FBS 122 H 60-99 mg/dL A fasting glucose from 100-125 mg/dl is considered impaired (pre-diabetes). CA 9.5 8.4-10.2 mg/dL AST (GOT) 18 5-31 U/L ALT (GPT) 14 0-31 U/L Triglyceride 122 <150 mg/dL Desirable Triglyceride: less than 150 mg/dL Borderline High Triglyceride 150-199 mg/dL High Triglyceride: 200-499 mg/dL Very High Triglyceride: greater than or equal to 5OO mg/dL Cholesterol 113 <200 mg/dL Desirable Cholesterol: less than 200 mg/dL Borderline High Cholesterol: 200-239 mg/dL High Cholesterol: greater than 239 mg/dL LDL Calculated 56 <100 mg/dL Desirable LDL: less than 100 mg/dL Near Optimal/Above Optimal LDL: 110-129 mg/dL Borderline High LDL: 130-159 mg/dL High LDL: 160-189 mg/dL Very High LDL: greater than or equal to 190 mg/dL HDL 33 L >40 mg/dL Desirable HDL: greater than 40 mg/dL Note: This HDL assay may give artificially low results in patients with liver disease. Vit D 25-OH Tot 53.4 >30 ng/mL Health Based Reference Values* < 20 ng/mL Deficient 20-30 ng/mL Insufficient > 30 ng/mL Sufficient Laboratory Tests 02/20/23 07:29 Estimat Average Glucose 169 Hemoglobin A1c % 7.5 H Assessment and Plan Assessment & Plan (1) Morbid obesity: Code(s): E66.01 - Morbid (severe) obesity due to excess calories Plan: Discussed need to increase activity and wt reduction. Recommended focusing on improving your health instead of dieting. : Eat Mediterranean diet, limit foods high in fat, sugar, and calories, eat slowly, pay attention to portion sizes, plan your meals ahead of time, start regular physical activity 150 minutes of moderate intensity exercise or 90 minutes/week of vigorous exercise and increase water intake. (2) Influenza vaccination declined: Code(s): Z28.21 - Immunization not carried out because of patient refusal (3) Depression: Code(s): F32.9 - Major depressive disorder, single episode, unspecified Plan: Stable and controlled on paroxetine, refill sent (4) Diabetes mellitus with hyperglycemia: Code(s): E11.65 - Type 2 diabetes mellitus with hyperglycemia Plan: latest hemoglobin A1c is higher at 7.5%. Will continue on metformin 1000 mg 1 tablet twice a day, and dulaglutide 3 mg injected once a week. Past importance of following recommended diet and getting at least 15-20 minutes of exercise to begin with on a daily basis. Stressed importance of getting diabetes retinopathy screening yearly and inspect feet to check for any callus or sores. Declined flu vaccine or COVID booster but she is agreeable to getting Prevnar 20 given today. (5) PHN (postherpetic neuralgia): Code(s): B02.29 - Other postherpetic nervous system involvement Plan: Continued on gabapentin 100 mg 1 tablet twice a day, patient advised to try cutting down to just 1 tablet at night (6) Hyperlipidemia: Code(s): E78.5 - Hyperlipidemia, unspecified Qualifiers: Hyperlipidemia type: pure hypercholesterolemia Qualified Code(s): E78.00 - Pure hypercholesterolemia, unspecified Plan: Reviewed recent fasting lipid profile with patient with levels within normal limits . Continue with rosuvastatin 5 mg daily , in addition to adherence to low-cholesterol diet and regular exercise, at least 30 minutes 3 to 4 times a week. Advised patient to make healthy food choices, eat more fruits, vegetables, whole grains, wild caught fish and low-fat dairy. Limit amount of meat and fried or fatty food products, as well as processed foods and fast foods. Follow-up scheduled with repeat fasting lipid panel in 4 months. Orders: Orders Hemoglobin A1c 4 Months B02.29 - Other postherpetic nervous system involvement, E11.65 - Type 2 diabetes mellitus with hyperglycemia, E66.01 - Morbid (severe) obesity due to excess calories, E78.5 - Hyperlipidemia, unspecified, F32.9 - Major depressive disorder, single episode, unspecified, K21.9 - Gastro- esophageal reflux disease without esophagitis Lipid Panel 4 Months B02.29 - Other postherpetic nervous system involvement, E11.65 - Type 2 diabetes mellitus with hyperglycemia, E66.01 - Morbid (severe) obesity due to excess calories, E78.5 - Hyperlipidemia, unspecified, F32.9 - Major depressive disorder, single episode, unspecified, K21.9 - Gastro- esophageal reflux disease without esophagitis Basic Metabolic Panel Fasting 4 Months B02.29 - Other postherpetic nervous syst em involvement, E11.65 - Type 2 diabetes mellitus with hyperglycemia, E66.01 - Morbid (severe) obesity due to excess calories, E78.5 - Hyperlipidemia, unspecified, F32.9 - Major depressive disorder, single episode, unspecified, K21.9 - Gastro-esophageal reflux disease without esophagitis Pneumococcal 20 Immunization 02/26/23 Z23 - Encounter for immunization Microalbumin, Random (w Creat) 4 Months B02.29 - Other postherpetic nervous system involvement, E11.65 - Type 2 diabetes mellitus with hyperglycemia, E66.01 - Morbid (severe) obesity due to excess calories, E78.5 - Hyperlipidemia, unspecified, F32.9 - Major depressive disorder, single episode, unspecified, K21.9 - Gastro-esophageal reflux disease without esophagitis Alanine Aminotransferase 4 Months B02.29 - Other postherpetic nervous system involvement, E11.65 - Type 2 diabetes mellitus with hyperglycemia, E66.01 - Morbid (severe) obesity due to excess calories, E78.5 - Hyperlipidemia, unspecified, F32.9 - Major depressive disorder, single episode, unspecified, K21.9 - Gastro-esophageal reflux disease without esophagitis Aspartate Amino Transferase 4 Months B02.29 - Other postherpetic nervous system involvement, E11.65 - Type 2 diabetes mellitus with hyperglycemia, E66.01 - Morbid (severe) obesity due to excess calories, E78.5 - Hyperlipidemia, unspecified, F32.9 - Major depressive disorder, single episode, unspecified, K21.9 - Gastro-esophageal reflux disease without esophagitis Medications: Refilled gabapentin 100 mg PO BID 30 days 60 caps 5RF B02.9 - Zoster without complications, E11.65 - Type 2 diabetes mellitus with hyperglycemia metformin 1,000 mg PO BID 180 tabs 3RF lisinopril 10 mg PO DAILY 90 tabs 3RF rosuvastatin 5 mg PO DAILY 90 tabs 3RF paroxetine HCl 30 mg PO QAM 90 tabs 4RF famotidine 40 mg PO DAILY 30 tabs 5RF Coding Level of Care Code Est Pt Level 4 (74385) Diagnoses Morbid obesity E66.01 Influenza vaccination declined Z28.21 Depression F32.9 Diabetes mellitus with hyperglycemia E11.65 PHN (postherpetic neuralgia) B02.29 Pure hypercholesterolemia E78.00 Hyperlipidemia type: pure hypercholesterolemia
[2023-02-26 12:19] VITALS: BP 124/72; PULSE 70; O2SAT 96; BMI 41.8
== END 2023-02-26 14:06 | disposition home or self-care (01) ==
PROVIDERS: PCP Internal Medicine; Visit Provider Internal Medicine
DX: Z23 Encounter for immunization (principal)
CPT/HCPCS: 90471; 90677; 99214

== ENCOUNTER 2023-10-28 14:40 | Outpatient (REF) | payer MEDICARE, SELFPAY ==
[2023-10-28 16:17] LABS: MANUAL DIFF FLAG NO
[2023-10-28 16:23] LABS: Basophils Percent Auto 0.5 % (0-2); Eosinophils Absolute Auto 0.2 X10*3/uL (0.0-0.4); Eosinophils Percent Auto 2.6 % (0-4); Hematocrit 42.9 % (37.0-47.0); Hemoglobin 13.8 g/dl (12.0-16.0); Imm Gran Abs Auto 0.04 X10*3/uL (0.00-0.03); Imm Gran Pct Auto 0.5 % (0.0-0.4); Lymphocytes Percent Auto 35.8 % (20-40); Mean Corpuscular HGB Conc 32.2 g/dl (31.0-35.0); Mean Corpuscular Hemoglobin 29.7 pg (27.0-33.0); Mean Corpuscular Volume 92.5 fL (80.0-98.0); Mean Platelet Volume 9.3 fL (9.4-12.3); Monocytes Absolute Auto 0.7 X10*3/uL (0.1-1.2); Neutrophils Absolute Auto 4.5 x10*3/uL (2.0-8.3); Neutrophils Percent Auto 52.6 % (45-73); Platelet Count 316 X10*3/uL (160-400); Red Blood Count 4.64 X10*6/uL (4.20-5.50); Red Cell Distribution Width 14.6 % (11.0-16.0); White Blood Count 8.5 X10*3/uL (4.8-10.8)
[2023-10-29 08:19] LABS: IgA 360 mg/dL (70-320); IgG 1051 mg/dL (600-1540); IgM 261 mg/dL (50-300)
[2023-11-07 02:38] LABS: IgE Antibody (Anti-IgE IgG) 10 ng/mL (<168)
== END 2023-10-28 14:41 | disposition home or self-care (01) ==
LOC: HO.HMGCLDS 14:40
PROVIDERS: PCP Internal Medicine; Visit Provider Internal Medicine
DX: Z77.120 Contact with and (suspected) exposure to mold (toxic) (principal)
CPT/HCPCS: 36415; 82784; 83520; 85025

== ENCOUNTER 2023-11-20 09:29 | Outpatient (REF) | payer MEDICARE, SELFPAY ==
[2023-11-20 13:45] LABS: Estimated Average Glucose 186 mg/dL; Hemoglobin A1c % 8.1 % (<6.0)
[2023-11-20 13:52] LABS: Alanine Aminotransferase 17 U/L (0-31); Anion Gap 14 (12-20); Aspartate Amino Transferase 16 U/L (5-31); Blood Urea Nitrogen 16 mg/dL (9-16); Calcium 9.7 mg/dL (8.4-10.2); Carbon Dioxide 26 mmol/L (22-29); Chloride 105 mmol/L (96-108); Cholesterol 125 mg/dL (<200); Estimated Glomerular Filt Rate > 60; Glucose Fasting 150 mg/dL (60-99); HDL Cholesterol 35 mg/dL (>40); LDL Cholesterol Calculated 66 mg/dL (<100); Sodium 141 mmol/L (135-145); Triglycerides 121 mg/dL (<150)
[2023-11-20 13:58] LABS: Creatinine Urine 78.95 mg/dL; Microalbumin Urine < 5.0 mg/L
== END 2023-11-20 09:30 | disposition home or self-care (01) ==
LOC: HO.HMGCLDS 09:29
PROVIDERS: PCP Internal Medicine; Visit Provider Internal Medicine
DX: E66.01 Morbid (severe) obesity due to excess calories (principal); K21.9 Gastro-esophageal reflux disease without esophagitis; F32.9 Major depressive disorder, single episode, unspecified; E11.65 Type 2 diabetes mellitus with hyperglycemia; B02.29 Other postherpetic nervous system involvement; E78.5 Hyperlipidemia, unspecified
CPT/HCPCS: 36415; 80048; 80061; 82570; 83036; 84450; 84460

== ENCOUNTER 2023-11-27 10:36 | Outpatient (AMB) | payer MEDICARE, SELFPAY ==
[2023-11-27 10:37] VITALS: BP 126/70; PULSE 84; O2SAT 96; BMI 40.9
--- NOTE | 2023-11-27 10:37 | A.OFFPC_ITS ---
Vital Signs 11/27/23 10:37 Height 5 ft 3 in Weight 231 lb BMI 40.9 BP 126/70 Blood Pressure Location Lt brachial Position Sitting Pulse 84 Pulse Source Pulse Oximeter Pulse Oximetry (%) 96 Oxygen Delivery Method Room Air Intake Visit Reasons: lab result?/black mold in house Intake Note: Pt is here today for a follow up visit on labs. Allergies amoxicillin [AMOXICILLIN] Allergy (Intermediate, Verified 12/01/23 20:42) RASH Penicillins [PENICILLINS] Allergy (Intermediate, Verified 12/01/23 20:42) RASH Sulfa (Sulfonamide Antibiotics) [SULFA (SULFONAMIDE ANTIBIOTICS)] Allergy (Intermediate, Verified 12/01/23 20:42) RASH, hives sulfamethoxazole [From BACTRIM] Allergy (Intermediate, Verified 12/01/23 20:42) RASH empagliflozin [From Jardiance] Adverse Reaction (Verified 12/01/23 20:42) Nausea Medication List - Last Reconciled 12/01/23 by Viviana Randolph MD acetaminophen (Tylenol) 325 mg PO QID PRN blood sugar diagnostic (Joomeuch Verio test strips) test blood sugar daily blood-glucose meter (Joomeuch Verio Meter) use to test blood sugar cetirizine 10 mg PO DAILY dulaglutide 3 mg (0.5 mL) subcut QWEEK 1 month famotidine 40 mg PO DAILY gabapentin 100 mg PO BID 30 days lancets ([employer] Del[employer] Lancets) Test blood sugar daily lisinopril 10 mg PO DAILY metformin 1,000 mg PO BID paroxetine HCl 30 mg PO QAM rosuvastatin 5 mg PO DAILY Tobacco use date assessed: 11/27/23 Fall risk assessment: No Falls in past year Last assessed Fall Risk: 11/27/23 Dental Screening Dental Screen Date: 11/27/23 Did you have a dental visit in the last 12 months?: Yes Did you have a dental problem in the last 6 months where you did not have access to dental care?: No Was dental information given to patient?: Patient has dentist HPI lab result?/black mold in house HPI Details 68 year-old lady here today for follow-u p on her diabetes mellitus, lipids and hypertension. She has been taking her medications but admits to not getting any exercise at all, and has not been strictly following recommended diet. Recent fasting labs showed fasting lipids are within normal limits but hemoglobin A1c is markedly higher than last check she is currently taking Trulicity 3 mg once a week, metformin a 1000 mg twice a day. [facility] Medical History Morbid obesity GERD (gastroesophageal reflux disease) Vitamin D deficiency Influenza vaccination declined Diabetes mellitus with hyperglycemia PHN (postherpetic neuralgia) Internal and external hemorrhoids without complication Menopause Iron deficiency anemia Gastritis Type 2 diabetes mellitus without complication, without long-term current use of insulin Varicose vein of leg IBS (irritable bowel syndrome) HTN (hypertension) Shingles Carpal tunnel syndrome of left wrist Internal hemorrhoid, bleeding Osteoarthritis Hyperlipidemia Diabetes Surgical History History of carpal tunnel surgery Tubal ligation status H/O colonoscopy Family History Father Esophageal cancer Alcoholism Mother Diabetes mellitus HTN (hypertension) CVA (cerebral vascular accident) Hyperlipidemia Sister Diabetes mellitus Social History Household Members: Family Housing: House Alcohol intake: never Comment: sleeping Patient Tobacco Use Status: Never used Tobacco e-Cigarette/Vaping Use: Never Used Second Hand Smoke Exposure: No service: No Current occupational status: employed 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 1. Little interest or pleasure in doing things: not at all 2. Feeling down, depressed, or hopeless: not at all 3. Trouble falling or staying asleep, or sleeping too much: several days 4. Feeling tired or having little energy: several days 5. Poor appetite or overeating: not at all 6. Feeling bad about yourself - or that you are a failure or have let yourself or your family down: not at all 7. Trouble concentrating on things, such as reading the newspaper or watching television: not at all 8. Moving or speaking so slowly that other people could have noticed. Or the opposite - being so fidgety or restless that you have been moving around a lot more than usual: not at all 9. Thoughts that you would be better off or of hurting yourself in some way: not at all Total score: 2 Depression Screening Interpretation: Negative Depression Screening Done: Yes 94353 - PHQ-9 Billing: Yes Source: Developed by Drs. Grabiel Zelaya, Anabela Hayden, Jose Wright and colleagues, with an educational jossue from [employer]. Thrive Questionnaire Date Thrive assessed: 07/25/22 I am a: Patient What is your living situation today?: I have a steady place to live Within the past 12 months, did the food you bought not last and you didn't have the money to get more?: Never true Within the past 12 months, did you worry whether your food would run out before you got money to buy more?: Sometimes True Do you have trouble paying for medicines?: No Do you have trouble getting transportation to medical appointments?: No Do you have trouble paying your heating and electricity bill?: No Do you have trouble taking care of your child, family member or friend?: No Do you have trouble with day-to-day activities such as bathing, preparing meals, shopping, managing finances, etc.?: No Are you currently unemployed and looking for a job?: No Are you interested in more education?: No Please select the resources that you would like help with: None Currently or been in a relationship where the following occur: No concerns reported THRIVE Score: 1 AUDIT C Alcohol Use Questionnaire (AUDIT-C) 1. How often do you have a drink containing alcohol?: Never 3. How often do you have six or more drinks on one occasion?: Never Total Score: 0 DOMENICO-7 AMB Questionnaire DOMENICO-7 Date DOMENICO - 7 assessed: 11/27/23 Feeling nervous, anxious, or on edge: 0 = Not at all Not being able to stop or control worryin = Several days Worrying too much about different things: 1 = Several days Trouble relaxin = Not at all Being so restless that it is hard to sit still: 0 = Not at all Becoming easily annoyed or irritable: 0 = Not at all Feeling afraid as if something awful might happen: 0 = Not at all Total DOMENICO-7 score (0-4 normal; 5-9 mild; 10-14 moderate; 15-21 severe): 2 Source: Developed by Drs. Grabiel Zelaya, Anabela Hayden, Jose Wright and colleagues, with an educational jossue from [employer]. DOMENICO-7 Assessment Billing DOMENICO-7 Assessment Tool: DOMENICO-7 Assessment 96205 Review of Systems Const Denies chills and Denies fever(s) Eyes Reports requires corrective lenses ENT Reports no additional complaints Card Denies chest pain, Denies dyspnea and Denies dyspnea on exertion Resp Denies cough, Denies dyspnea and Denies dyspnea on exertion GI Denies abdominal pain, Denies melena, Denies bloating, Denies hematochezia, Denies change in bowel habits, Reports heartburn (Takes Tums on occasions, which lately has not been helping much) and Denies nausea Denies hematuria, Denies difficulty voiding, Denies dysuria, Denies urinary hesitancy and Denies urinary urgency Musc Reports no additional complaints Skin/Breast Denies breast pain, Denies breast mass, Denies dry skin, Denies lesions and D enies rash Neuro Reports no additional complaints and Reports paresthesias (fom prior shingles outbreak) Psych Reports no additional complaints Endo Denies polyphagia, Denies polydipsia and Denies polyuria Lenny/Lymph Denies easy bleeding and Denies easy bruising Aller/Immun Reports no additional complaints Physical exam (Primary Care) Vital Signs: Last Vital Signs Pulse 84 11/27/23 10:37 BP 126/70 11/27/23 10:37 Pulse Ox 96 11/27/23 10:37 Oxygen Delivery Method Room Air 11/27/23 10:37 BMI result Body Mass Index 40.9 Tobacco/Smoking Status: Tobacco use Status Tobacco use date assessed 11/27/23 11/27/23 10:44 Patient Tobacco Use Status Never used Tobacco 11/27/23 10:44 e-Cigarette/Vaping Use Never Used 11/27/23 10:37 PHQ-9: PHQ-9 Score PHQ-9: Total score 2 11/27/23 11:45 Depression Screening Interpretation: Negative Thrive Assessment: Date of Thrive Assessment Date Thrive assessed 07/25/22 11/27/23 10:37 Currently or been in a relationship where the following occur: No concerns reported Const General: comfortable and no acute distress Nutritional Appearance: obese Orientation/consciousness: patient oriented x3 [facility] General nose exam: Normal external nose present Face and sinus: Yes face symmetric Mouth: Normal oral and palatal mucosa present Eyes General: appearance normal, both eyes and all related structures Neck Neck: Yes full ROM, Yes no lymphadenopathy and Yes supple Thyroid: Thyroid normal Resp Effort & Inspection: normal respiratory effort and able to speak in complete sentences Auscultation: clear to auscultation bilaterally Cardio Rate: regular rate Rhythm: regular rhythm Heart sounds: S1 normal heart sound present and S2 normal heart sound present GI Inspection: Yes obesity Palpation (GI): Soft to palpation, nontender, no guarding and no masses Auscultation: normal bowel sounds Skin General skin exam: no rashes or lesions noted Neuro General: patient oriented x3, gait normal, Normal light touch and pain sensation and no focal motor deficits Extrem General: Yes full ROM, Yes no joint enlargement, Yes no calf tenderness and Yes normal gait Results Reviewed Results Reviewed: Name: Carolina White Age/Sex: 68/F : 1955 Unit#: [id number] Attend Dr: mAy Irizarry MD Re10/28/23 Status: DEP REF Location: [facility] Disch: SPEC : [id number] GUNNAR: 10/28/23 STATUS: COMP REQ : [id number] RECD: 10/28/[address]: Amy Irizarry MD COMP: 10/28/23 ENTERED: 10/28/[address]: Viviana Randolph MD ORDERED: CBC Auto Diff Test Result Flag Reference WBC 8.5 4.8-10.8 X10*3/uL RBC 4.64 4.20-5.50 X10*6/uL HGB 13.8 12.0-16.0 g/dl HCT 42.9 37.0-47.0 % MCV 92.5 80.0-98.0 fL MCH 29.7 27.0-33.0 pg MCHC 32.2 31.0-35.0 g/dl RDW 14.6 11.0-16.0 % PLT 316 160-400 X10*3/uL MPV 9.3 L 9.4-12.3 fL Neut Pct Auto 52.6 45-73 % ImGran Pct Auto 0.5 H 0.0-0.4 % Lymp Pct Auto 35.8 20-40 % [place] Pct Auto 8.0 2-11 % Eos Pct Auto 2.6 0-4 % Baso Pct Auto 0.5 0-2 % NRBC Pct Auto 0.0 0.0-0.2 /100WBC ANC Neut Abs # 4.5 2.0-8.3 x10*3/uL ImGran Abs Auto 0.04 H 0.00-0.03 X10*3/uL Lymph Abs Auto 3.0 1.2-4.9 X10*3/uL [place] Abs Auto 0.7 0.1-1.2 X10*3/uL Eos Abs Auto 0.2 0.0-0.4 X10*3/uL Baso Abs Auto 0.0 0.0-0.2 X10*3/uL NRBC Name: Carolina White Age/Sex: 68/F : 1955 Unit#: [id number] Attend Dr: Viviana Randolph MD Re11/20/23 Status: DEP REF Location: [facility] Disch: SPEC : [id number] GUNNAR: 11/20/23 STATUS: COMP REQ : [id number] RECD: 11/20/23-[address]: Viviana Randolph MD COMP: 11/20/23 ENTERED: 11/20/23-931 [facility] DR: ORDERED: Met Prof Fast, AST, ALT, Lipid Panel Test Result Flag Reference Sodium 141 135-145 mmol/L Potassium 4.0 3.3-5.1 mmol/L CL 105 96-108 mmol/L CO2 26 22-29 mmol/L Gap 14 12-20 BUN 16 9-16 mg/dL Creat 0.65 0.5-1.4 mg/dL EGFR > 60 NOTE: For -Vincentian individuals, multiply the result by 1.210. Chronic Kidney Disease: Estimated GFR < 60 mL/ min/1.73m2 Severe Kidney Disease: Estimated GFR < 15 mL/min/1.73m2 FBS 150 H 60-99 mg/dL A fasting glucose of 126 mg/dl or greater on more than one occasion is considered diagnostic of diabetes. CA 9.7 8.4-10.2 mg/dL AST (GOT) 16 5-31 U/L ALT (GPT) 17 0-31 U/L Triglyceride 121 <150 mg/dL Desirable Triglyceride: less than 150 mg/dL Borderline High Triglyceride 150-199 mg/dL High Triglyceride: 200-499 mg/dL Very High Triglyceride: greater than or equal to 5OO mg/dL Cholesterol 125 <200 mg/dL Desirable Cholesterol: less than 200 mg/dL Borderline High Cholesterol: 200-239 mg/dL High Cholesterol: greater than 239 mg/dL LDL Calculated 66 <100 mg/dL Desirable LDL: less than 100 mg/dL Near Optimal/Above Optimal LDL: 110-129 mg/dL Borderline High LDL: 130-159 mg/dL High LDL: 160-189 mg/dL Very High LDL: greater than or equal to 190 mg/dL HDL 35 L >40 mg/dL Desirable HDL: greater than 40 mg/dL Note: This HDL assay may give artificially low results in patients with liver disease. 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 Currently on metformin and Trulicity, and advised to raise dose of Trulicity to 4.5 will change to Ozempic but patient refuses. Does not want to start any insulin at present time. Will continue her on her current medication and stressed importance of following a low carbohydrate diet, in addition to doing regular weight-bearing exercise at least 30 minutes daily. Will repeat levels again in 3 months. Reminded to get her diabetes retinopathy screening done yearly. Recommended as well to get her COVID booster, flu vaccine (3) Vitamin D deficiency: Code(s): E55.9 - Vitamin D deficiency, unspecified Plan: Continue with vitamin-D 3 supplements (4) Morbid obesity: Code(s): E66.01 - Morbid (severe) obesity due to excess calories Orders: Orders Lipid Panel 02/16/24 E11.65 - Type 2 diabetes mellitus with hyperglycemia, E55.9 - Vitamin D deficiency, unspecified, E66.01 - Morbid (severe) obesity due to excess calories, E78.00 - Pure hypercholesterolemia, unspecified Basic Metabolic Panel Fasting 02/16/24 E11.65 - Type 2 diabetes mellitus with hyperglycemia, E55.9 - Vitamin D deficiency, unspecified, E66.01 - Morbid (severe) obesity due to excess calories, E78.00 - Pure hypercholesterolemia, unspecified Vitamin D 25-OH Total 02/16/24 E11.65 - Type 2 diabetes mellitus with hyperglycemia, E55.9 - Vitamin D deficiency, unspecified, E66.01 - Morbid ( severe) obesity due to excess calories, E78.00 - Pure hypercholesterolemia, unspecified Microalbumin, Random (w Creat) 02/16/24 E11.65 - Type 2 diabetes mellitus with hyperglycemia, E55.9 - Vitamin D deficiency, unspecified, E66.01 - Morbid (severe) obesity due to excess calories, E78.00 - Pure hypercholesterolemia, unspecified Hemoglobin A1c 02/16/24 E11.65 - Type 2 diabetes mellitus with hyperglycemia, E55.9 - Vitamin D deficiency, unspecified, E66.01 - Morbid (severe) obesity due to excess calories, E78.00 - Pure hypercholesterolemia, unspecified Alanine Aminotransferase 02/16/24 E11.65 - Type 2 diabetes mellitus with hyperglycemia, E55.9 - Vitamin D deficiency, unspecified, E66.01 - Morbid (severe) obesity due to excess calories, E78.00 - Pure hypercholesterolemia, unspecified Aspartate Amino Transferase 02/16/24 E11.65 - Type 2 diabetes mellitus with hyperglycemia, E55.9 - Vitamin D deficiency, unspecified, E66.01 - Morbid (severe) obesity due to excess calories, E78.00 - Pure hypercholesterolemia, unspecified Coding Level of Care Code Est Pt Level 4 (26509) Complex EM visit Add On G2211 Diagnoses Pure hypercholesterolemia E78.00 Hyperlipidemia type: pure hypercholesterolemia Type 2 diabetes mellitus with hyperglycemia, without long-term current use of insulin E11.65 Diabetes mellitus fdc insulin use: without longshore equipment operator use Diabetes mellitus type: type 2 Vitamin D deficiency E55.9 Morbid obesity E66.01 Additional Codes DOMENICO-7 Assessment Billing - DOMENICO-7 Assessment Tool: DOMENICO-7 Assessment 93160 ([id number])
== END 2023-11-27 13:06 | disposition home or self-care (01) ==
PROVIDERS: PCP Internal Medicine; Visit Provider Internal Medicine
DX: E78.00 Pure hypercholesterolemia, unspecified (principal); E11.65 Type 2 diabetes mellitus with hyperglycemia; E66.01 Morbid (severe) obesity due to excess calories; Z68.41 Body mass index [BMI] 40.0-44.9, adult; E55.9 Vitamin D deficiency, unspecified
CPT/HCPCS: 99214; G2211

== ENCOUNTER 2024-02-19 09:43 | Outpatient (REF) | payer MEDICARE, SELFPAY ==
[2024-02-19 13:33] LABS: Estimated Average Glucose 200 mg/dL; Hemoglobin A1C 237.8144 umol/L; Hemoglobin A1c % 8.6 % (<6.0); Total Hemoglobin (HGBA1C) 3355.7789 umol/L
[2024-02-19 13:48] LABS: Alanine Aminotransferase 17 U/L (0-31); Anion Gap 12 (12-20); Aspartate Amino Transferase 27 U/L (5-31); Blood Urea Nitrogen 17 mg/dL (9-16); Calcium 9.6 mg/dL (8.4-10.2); Carbon Dioxide 28 mmol/L (22-29); Chloride 105 mmol/L (96-108); Cholesterol 120 mg/dL (<200); Estimated Glomerular Filt Rate > 60; Glucose Fasting 203 mg/dL (60-99); HDL Cholesterol 32 mg/dL (>40); LDL Cholesterol Calculated 66 mg/dL (<100); Potassium 3.9 mmol/L (3.3-5.1); Sodium 141 mmol/L (135-145); Triglycerides 111 mg/dL (<150); Vitamin D 25-OH Total 35.1 ng/mL (>30)
[2024-02-19 14:10] LABS: Creatinine Urine 105.51 mg/dL; Microalbum/Creatinine Ratio Ur 9.4 ug/mg cr (<30)
== END 2024-02-19 09:44 | disposition home or self-care (01) ==
LOC: HO.HMGCLDS 09:43
PROVIDERS: PCP Internal Medicine; Visit Provider Internal Medicine
DX: E66.01 Morbid (severe) obesity due to excess calories (principal); E55.9 Vitamin D deficiency, unspecified; E11.65 Type 2 diabetes mellitus with hyperglycemia; E78.00 Pure hypercholesterolemia, unspecified
CPT/HCPCS: 36415; 80048; 80061; 82043; 82306; 82570; 83036; 84450; 84460

== ENCOUNTER 2024-02-26 11:24 | Outpatient (AMB) | payer MEDICARE, SELFPAY ==
[2024-02-26 11:42] VITALS: BP 136/80; PULSE 66; O2SAT 96; BMI 39.0
--- NOTE | 2024-02-26 11:42 | MHC.PC.OV ---
Vital Signs 02/26/24 11:42 Height 5 ft 3 in Weight 220 lb BMI 39.0 BP 136/80 Blood Pressure Location Rt brachial Position Sitting Pulse 66 Pulse Source Pulse Oximeter Pulse Oximetry (%) 96 Oxygen Delivery Method Room Air Intake Visit Reasons: 2m follow up Intake Note: Pt is here today for her 2mo. f/u Allergies amoxicillin [AMOXICILLIN] Allergy (Intermediate, Verified 02/26/24 12:13) RASH Penicillins [PENICILLINS] Allergy (Intermediate, Verified 02/26/24 12:13) RASH Sulfa (Sulfonamide Antibiotics) [SULFA (SULFONAMIDE ANTIBIOTICS)] Allergy (Intermediate, Verified 02/26/24 12:13) RASH, hives sulfamethoxazole [From BACTRIM] Allergy (Intermediate, Verified 02/26/24 12:13) RASH empagliflozin [From Jardiance] Adverse Reaction (Verified 02/26/24 12:13) Nausea Medication List - Last Reconciled 02/26/24 by Viviana Randolph MD acetaminophen (Tylenol) 325 mg PO QID PRN blood sugar diagnostic ([employer] Verio test strips) test blood sugar daily blood-glucose meter ([employer] Verio Meter) use to test blood sugar cetirizine 10 mg PO DAILY dulaglutide 3 mg (0.5 mL) subcut QWEEK 1 month famotidine 40 mg PO DAILY gabapentin 100 mg PO BID 30 days lancets ([employer] Delica Lancets) Test blood sugar daily lisinopril 10 mg PO DAILY metformin 1,000 mg PO BID paroxetine HCl 30 mg PO QAM rosuvastatin 5 mg PO DAILY Tobacco use date assessed: 02/26/24 Fall risk assessment: 2 + Falls in past year Last assessed Fall Risk: 02/26/24 Dental Screening Dental Screen Date: 02/26/24 Did you have a dental visit in the last 12 months?: No Did you have a dental problem in the last 6 months where you did not have access to dental care?: No Was dental information given to patient?: Patient has dentist HPI 2m follow up HPI Details - The patient is a 68-year-old female presenting today for follow-up of her Type 2 Diabetes Mellitus. - Previously on Trulicity, which was discontinued due to cost and insurance coverage issues, resulting in a gap since January. - Decrease in weight from 231 lbs in October to 220 lbs currently, with no corresponding decrease in blood glucose levels. - Current A1c has increased from 8.1 to 8.6 in the absence of Trulicity, currently taking only metformin 1000 mg twice a day - Patient reports difficulties with insurance coverage due to Medicare Part D ?radha hole,? impacting access to Trulicity due to increased [id number] costs. - Tried Jardiance, which resulted in bladder discomfort and was discontinued. - A prior attempt with semaglutide was unsuccessful due to availability issues. - Recent attempts to manage diabetes with weight loss have not resulted in improved blood glucose metrics. [facility] Medical History (Updated 02/26/24 @ 12:30 by Viviana Randolph MD) Morbid obesity GERD (gastroesophageal reflux disease) Vitamin D deficiency Influenza vaccination declined Diabetes mellitus with hyperglycemia PHN (postherpetic neuralgia) Internal and external hemorrhoids without complication Menopause Iron deficiency anemia Gastritis Type 2 diabetes mellitus without complication, without long-term current use of insulin Varicose vein of leg IBS (irritable bowel syndrome) HTN (hypertension) Shingles Carpal tunnel syndrome of left wrist Internal hemorrhoid, bleeding Osteoarthritis Hyperlipidemia Diabetes Surgical History History of carpal tunnel surgery Tubal ligation status H/O colonoscopy Family History Father Esophageal cancer Alcoholism Mother Diabetes mellitus HTN (hypertension) CVA (cerebral vascular accident) Hyperlipidemia Sister Diabetes mellitus Social History Household Members: Family Housing: House Alcohol intake: never Comment: sleeping Patient Tobacco Use Status: Never used Tobacco e-Cigarette/Vaping Use: Never Used Second Hand Smoke Exposure: No service: No Current occupational status: employed 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 Cognitive needs: No Hearing needs: No Vision needs: Yes Questionnaire Thrive Questionnaire Date Thrive assessed: 11/27/23 I am a: Patient What is your living situation today?: I have a steady place to live Within the past 12 months, did the food you bought not last and you didn't have the money to get more?: Never true Within the past 12 months, did you worry whether your food would run out before you got money to buy more?: Sometimes True Do you have trouble paying for medicines?: No Do you have trouble getting transportation to medical appointments?: No Do you have trouble paying your heating and electricity bill?: No Do you have trouble taking care of your child, family member or friend?: No Do you have trouble with day-to-day activities such as bathing, preparing meals, shopping, managing finances, etc.?: No Are you currently unemployed and looking for a job?: No Are you interested in more education?: No Please select the resources that you would like help with: None Currently or been in a relationship where the following occur: No concerns reported THRIVE Score: 1 DOMENICO-7 AMB Questionnaire DOMENICO-7 Date DOMENICO - 7 assessed: 11/27/23 Source: Developed by Drs. Grabiel Zelaya, Anabela Hayden, Jose Wright and colleagues, with an educational jossue from [employer] Review of Systems Const Denies chills and Denies fever(s) Eyes Reports requires corrective lenses ENT Reports no additional complaints Card Denies chest pain, Denies dyspnea and Denies dyspnea on exertion Resp Denies cough, Denies dyspnea and Denies dyspnea on exertion GI Denies abdominal pain, Denies melena, Denies bloating, Denies hematochezia, Denies change in bowel habits, Reports heartburn (Takes Tums on occasions, which lately has not been helping much) and Denies nausea Denies hematuria, Denies difficulty voiding, Denies dysuria, Denies urinary hesitancy and Denies urinary urgency Musc Reports no additional complaints Skin/Breast Denies breast pain, Denies breast mass, Denies dry skin, Denies lesions and Denies rash Neuro Reports no additional complaints and Reports paresthesias (fom prior shingles outbreak) Psych Reports no additional complaints Endo Denies polyphagia, Denies polydipsia and Denies polyuria Lenny/Lymph Denies easy bleeding and Denies easy bruising Aller/Immun Reports no additional complaints Physical exam (Primary Care) Vital Signs: Last Vital Signs Pulse 66 02/26/24 11:42 BP 136/80 02/26/24 11:42 Pulse Ox 96 02/26/24 11:42 Oxygen Delivery Method Room Air 02/26/24 11:42 BMI result Body Mass Index 39.0 Tobacco/Smoking Status: Tobacco use Status Tobacco use date assessed 02/26/24 02/26/24 11:46 Patient Tobacco Use Status Never used Tobacco 02/26/24 11:46 e-Cigarette/Vaping Use Never Used 02/26/24 11:46 Thrive Assessment: Date of Thrive Assessment Date Thrive assessed 11/27/23 02/26/24 11:46 Currently or been in a relationship where the following occur: No concerns reported Const General: comfortable and no acute distress Nutritional Appearance: obese Orientation/consciousness: patient oriented x3 [facility] General nose exam: Normal external nose present Face and sinus: Yes face symmetric Mouth: Normal oral and palatal mucosa present Eyes General: appearance normal, both eyes and all related structures Neck Neck: Yes full ROM, Yes no lymphadenopathy and Yes supple Thyroid: Thyroid normal Resp Effort & Inspection: normal respiratory effort and able to speak in complete sentences Auscultation: clear to auscultation bilaterally Cardio Rate: regular rate Rhythm: regular rhythm Heart sounds: S1 normal heart sound present and S2 normal heart sound present GI Inspection: Yes obesity Palpation (GI): Soft to palpation, nontender, no guarding and no masses Auscultation: normal bowel sounds Skin General skin exam: no rashes or lesions noted Neuro General: patient oriented x3, gait normal, Normal light touch and pain sensation and no focal motor deficits Extrem General: Yes full ROM, Yes no joint enlargement, Yes no calf tenderness and Yes normal gait Results Reviewed Results Reviewed: Name: Carolina White Age/Sex: 68/F : 1955 Unit#: [id number] Attend Dr: Viviana Randolph MD Re02/19/24 Status: DEP REF Location: [facility] Disch: SPEC : [id number] GUNNAR: 02/19/24 STATUS: COMP REQ : [id number] RECD: 02/19/[address]: Viviana Randolph MD COMP: 02/19/24 ENTERED: 02/19/[address] [facility] [address]: ORDERED: Met Prof Fast, AST, ALT, Lipid Panel, Vitamin D 25-OH Test Result Flag Reference Sodium 141 135-145 mmol/L Potassium 3.9 3.3-5.1 mmol/L CL 105 96-108 mmol/L CO2 28 22-29 mmol/L Gap 12 12-20 BUN 17 H 9-16 mg/dL Creat 0.68 0.5-1.4 mg/dL eGFR > 60 Chronic Kidney Disease: Estimated GFR < 60 mL/min/1.73m2 Severe Kidney Disease: Estimated GFR < 15 mL/min/1.73m2 FBS 203 H 60-99 mg/dL A fasting glucose of 126 mg/dl or greater on more than one occasion is considered diagnostic of diabetes. CA 9.6 8.4-10.2 mg/dL AST (GOT) 27 5-31 U/L ALT (GPT) 17 0-31 U/L Triglyceride 111 <150 mg/dL Desirable Triglyceride: less than 150 mg/dL Borderline High Triglyceride 150-199 mg/dL High Triglyceride: 200-499 mg/dL Very High Triglyceride: greater than or equal to 5OO mg/dL Cholesterol 120 <200 mg/dL Desirable Cholesterol: less than 200 mg/dL Borderline High Cholesterol: 200-239 mg/dL High Cholesterol: greater than 239 mg/dL LDL Calculated 66 <100 mg/dL Desirable LDL: less than 100 mg/dL Near Optimal/Above Optimal LDL: 110-129 mg/dL Borderline High LDL: 130-159 mg/dL High LDL: 160-189 mg/dL Very High LDL: greater than or equal to 190 mg/dL HDL 32 L >40 mg/dL Desirable HDL: greater than 40 mg/dL Note: This HDL assay may give artificially low results in patients with liver disease. Vit D 25-OH Tot 35.1 >30 ng/mL Health Based Reference Values* < 20 ng/mL Deficient 20-30 ng/mL Insufficient > 30 ng/mL Sufficient Laboratory Tests 02/19/24 09:48 Estimat Average Glucose 200 Hemoglobin A1c % 8.6 H Laboratory Tests 02/19/24 09:55 Urine Creatinine 105.51 Urine Microalbumin 10.0 Microalb/Creat Ratio 9.4 Coding Level of Care Code Est Pt Level 4 (63151) Complex EM visit Add On G2211 Diagnoses Pure hypercholesterolemia E78.00 Hyperlipidemia type: pure hypercholesterolemia Type 2 diabetes mellitus with hyperglycemia, without long-term current use of insulin E11.65 Diabetes mellitus buttermaker insulin use: without buttermaker use Diabetes mellitus type: type 2 Morbid obesity E66.01 Assessment & Plan Assessment & Plan (1) Hyperlipidemia: Code(s): E78.5 - Hyperlipidemia, unspecified Category: Medical Qualifiers: Hyperlipidemia type: pure hypercholesterolemia Qualified Code(s): E78.00 - Pure hypercholesterolemia, unspecified (2) Diabetes mellitus with hyperglycemia: Code(s): E11.65 - Type 2 diabetes mellitus with hyperglycemia Category: Medical Qualifiers: Diabetes mellitus buttermaker insulin use: without buttermaker use Diabetes mellitus type: type 2 Qualified Code(s): E11.65 - Type 2 diabetes mellitus with hyperglycemia (3) Morbid obesity: Code(s): E66.01 - Morbid (severe) obesity due to excess calories Category: Medical Plan During the visit, we extensively discussed the management options for Type 2 Diabetes Mellitus. Continue with metformin 1000 mg 1 tablet twice a day. Due to insurance coverage issues [facility], we elected to try Mounjaro, contingent on coverage confirmation. We reviewed the side effect profile, specifically gastrointestinal risks, and emphasized lifestyle modifications to help manage blood sugar levels and weight. The necessity of regular eye exams for diabetic retinopathy screening was highlighted. Risk and benefits of medication options were discussed in depth, ensuring patient comprehension and consent. We acknowledged the financial and insurance challenges the patient faces, advising a review of Medicare benefits with a [employer] inbound sales representative. A follow-up was scheduled in three months to evaluate the treatment response and make necessary adjustments. Orders: Orders Hemoglobin A1c 05/16/24 E11.65 - Type 2 diabetes mellitus with hyperglycemia, E66.01 - Morbid (severe) obesity due to excess calories, E78.00 - Pure hypercholesterolemia, unspecified Alanine Aminotransferase 05/16/24 E11.65 - Type 2 diabetes mellitus with hyperglycemia, E66.01 - Morbid (severe) obesity due to excess calories, E78.00 - Pure hypercholesterolemia, unspecified Vitamin D 25-OH Total 05/16/24 E11.65 - Type 2 diabetes mellitus with hyperglycemia, E66.01 - Morbid (severe) obesity due to excess calories, E78.00 - Pure hypercholesterolemia, unspecified Lipid Panel 05/16/24 E11.65 - Type 2 diabetes mellitus with hyperglycemia, E66.01 - Morbid (severe) obesity due to excess calories, E78.00 - Pure hypercholesterolemia, unspecified Microalbumin, Random (w Creat) 05/16/24 E11.65 - Type 2 diabetes mellitus with hyperglycemia, E66.01 - Morbid (severe) obesity due to excess calories, E78.00 - Pure hypercholesterolemia, unspecified Aspartate Amino Transferase 05/16/24 E11.65 - Type 2 diabetes mellitus with hyperglycemia, E66.01 - Morbid (severe) obesity due to excess calories, E78.00 - Pure hypercholesterolemia, unspecified Basic Metabolic Panel Fasting 05/16/24 E11.65 - Type 2 diabetes mellitus with hyperglycemia, E66.01 - Morbid (severe) obesity due to excess calories, E78.00 - Pure hypercholesterolemia, unspecified Medications: New Mounjaro (tirzepatide) for 4 weeks 2.5 mg (0.5 mL) subcut QWEEK 2 mL 3RF NS E11.65 - Type 2 diabetes mellitus with hyperglycemia, E66.01 - Morbid (severe) obesity due to excess calories
== END 2024-02-26 12:37 | disposition home or self-care (01) ==
PROVIDERS: PCP Internal Medicine; Visit Provider Internal Medicine
DX: E78.00 Pure hypercholesterolemia, unspecified (principal); E11.65 Type 2 diabetes mellitus with hyperglycemia; E66.01 Morbid (severe) obesity due to excess calories; Z68.39 Body mass index [BMI] 39.0-39.9, adult

== ENCOUNTER → 2024-02-26 11:24 | Outpatient (BNVA) | payer MEDICARE, SELFPAY | PROVIDERS: PCP Internal Medicine; Visit Provider Internal Medicine | DX: E78.00 Pure hypercholesterolemia, unspecified (principal); E11.65 Type 2 diabetes mellitus with hyperglycemia; E66.01 Morbid (severe) obesity due to excess calories | CPT/HCPCS: 99212 ==

== ENCOUNTER 2024-06-02 11:05 | Outpatient (REF) | payer MEDICARE, SELFPAY ==
[2024-06-02 13:40] LABS: Alanine Aminotransferase 14 U/L (0-31); Anion Gap 13 (12-20); Aspartate Amino Transferase 31 U/L (5-31); Blood Urea Nitrogen 13 mg/dL (9-16); Calcium 9.6 mg/dL (8.4-10.2); Carbon Dioxide 27 mmol/L (22-29); Chloride 104 mmol/L (96-108); Cholesterol 126 mg/dL (<200); Estimated Average Glucose 194 mg/dL; Estimated Glomerular Filt Rate > 60; Glucose Fasting 181 mg/dL (60-99); HDL Cholesterol 36 mg/dL (>40); Hemoglobin A1c % 8.4 % (<6.0); LDL Cholesterol Calculated 64 mg/dL (<100); Potassium 4.3 mmol/L (3.3-5.1); Sodium 140 mmol/L (135-145); Triglycerides 130 mg/dL (<150)
[2024-06-02 13:57] LABS: Vitamin D 25-OH Total 54.3 ng/mL (>30)
[2024-06-02 14:12] LABS: Creatinine Urine 113.59 mg/dL; Microalbum/Creatinine Ratio Ur 7.9 ug/mg cr (<30)
== END 2024-06-02 11:06 | disposition home or self-care (01) ==
LOC: HO.HMGCLDS 11:05
PROVIDERS: PCP Internal Medicine; Visit Provider Internal Medicine
DX: E66.01 Morbid (severe) obesity due to excess calories (principal); E11.65 Type 2 diabetes mellitus with hyperglycemia; E78.00 Pure hypercholesterolemia, unspecified
CPT/HCPCS: 36415; 80048; 80061; 82043; 82306; 82570; 83036; 84450; 84460

== ENCOUNTER 2024-06-09 10:17 | Outpatient (AMB) | payer MEDICARE, SELFPAY ==
--- NOTE | 2024-06-09 10:24 | A.OFFPC_ITS ---
Vital Signs 06/09/24 10:44 Height 5 ft 3 in Weight 218 lb BMI 38.6 BP 100/74 Blood Pressure Location Lt brachial Position Sitting Respiration 16 Pulse 68 Pulse Source Pulse Oximeter Temp 97.9 F Temp Source Oral Pulse Oximetry (%) 96 Oxygen Delivery Method Room Air Intake Visit Reasons: reschedule from 06/04, 3m follow up Intake Note: Pt is here today for her 3mo. f/u Allergies amoxicillin [AMOXICILLIN] Allergy (Intermediate, Verified 06/09/24 10:53) RASH Penicillins [PENICILLINS] Allergy (Intermediate, Verified 06/09/24 10:53) RASH Sulfa (Sulfonamide Antibiotics) [SULFA (SULFONAMIDE ANTIBIOTICS)] Allergy (Intermediate, Verified 06/09/24 10:53) RASH, hives sulfamethoxazole [From BACTRIM] Allergy (Intermediate, Verified 06/09/24 10:53) RASH dapagliflozin [From Farxiga] Adverse Reaction (Verified 06/09/24 10:53) rash and diarrhea empagliflozin [From Jardiance] Adverse Reaction (Verified 06/09/24 10:53) Nausea Medication List - Last Reconciled 06/09/24 by Viviana Randolph MD acetaminophen (Tylenol) 325 mg PO QID PRN blood sugar diagnostic (Cinema[employer] Verio test strips) test blood sugar daily blood-glucose meter ([employer] Verio Meter) use to test blood sugar cetirizine 10 mg PO DAILY famotidine 40 mg PO DAILY gabapentin 100 mg PO BID 30 days lancets (OneTouch Delica Lancets) Test blood sugar daily lisinopril 10 mg PO DAILY metformin 1,000 mg PO BID paroxetine HCl 30 mg PO QAM rosuvastatin 5 mg PO DAILY Tobacco use date assessed: 06/09/24 Fall risk assessment: 1 Fall in past year Last assessed Fall Risk: 06/09/24 Dental Screening Dental Screen Date: 06/09/24 Did you have a dental visit in the last 12 months?: No Did you have a dental problem in the last 6 months where you did not have access to dental care?: No Was dental information given to patient?: No HPI reschedule from 06/04, 3m follow up HPI Details 68 Year old lady with history of diabete s mellitus type 2, has dyslipidemia, and depression here today for a follow-up. Currently taking metformin 1000 mg 1 tablet twice a day with meals, but stopped taking Farxiga as she developed a rash on her face which was very itchy. This resolved after discontinuation of the medication. She has tried Jardiance in the past with the same affect. Previously was on Trulicity, but stopped taking it when she was unable to get it because of a high deductible. Latest fasting labs showed hemoglobin A1c at 8.4% with fasting lipids within normal limits except for low good cholesterol. Is overdue for diabetes retinopathy screening, previously was seen by Dr. Abad and Dr. Villegas, now will be scheduling an appointment w ith another provider. Depression stable and controlled on paroxetine 30 mg taken once a day in a.m. [facility] Medical History (Updated 06/09/24 @ 11:26 by Viviana Randolph MD) HTN (hypertension) History of vitamin D deficiency History of herpes zoster Morbid obesity GERD (gastroesophageal reflux disease) Influenza vaccination declined Diabetes mellitus with hyperglycemia PHN (postherpetic neuralgia) Internal and external hemorrhoids without complication Gastritis Varicose vein of leg IBS (irritable bowel syndrome) Carpal tunnel syndrome of left wrist Osteoarthritis Hyperlipidemia Surgical History History of carpal tunnel surgery Tubal ligation status H/O colonoscopy Family History Father Esophageal cancer Alcoholism Mother Diabetes mellitus HTN (hypertension) CVA (cerebral vascular accident) Hyperlipidemia Sister Diabetes mellitus Social History Household Members: Family Housing: House Alcohol intake: never Comment: sleeping Patient Tobacco Use Status: Never used Tobacco e-Cigarette/Vaping Use: Never Used Second Hand Smoke Exposure: No service: No Current occupational status: employed 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 1. Little interest or pleasure in doing things: not at all 2. Feeling down, depressed, or hopeless: not at all 3. Trouble falling or staying asleep, or sleeping too much: not at all 4. Feeling tired or having little energy: not at all 5. Poor appetite or overeating: not at all 6. Feeling bad about yourself - or that you are a failure or have let yourself or your family down: not at all 7. Trouble concentrating on things, such as reading the newspaper or watching television: not at all 8. Moving or speaking so slowly that other people could have noticed. Or the opposite - being so fidgety or restless that you have been moving around a lot more than usual: not at all 9. Thoughts that you would be better off or of hurting yourself in some way: not at all Total score: 0 Depression Screening Interpretation: Negative (Controlled on paroxetine, in remission) Depression Screening Done: Yes 88197 - PHQ-9 Billing: Yes Source: Developed by Drs. Grabiel Zelaya, Anabela Hayden, Jose Wright and colleagues, with an educational jossue from [employer]. Thrive Questionnaire Date Thrive assessed: 06/09/24 I am a: Patient What is your living situation today?: I have a place to live, but I am worried about losing it in the future Within the past 12 months, did the food you bought not last and you didn't have the money to get more?: Sometimes True Within the past 12 months, did you worry whether your food would run out before you got money to buy more?: Often true Do you have trouble paying for medicines?: I choose not to answer this question Do you have trouble getting transportation to medical appointments?: No Do you have trouble paying your heating and electricity bill?: No Do you have trouble taking care of your child, family member or friend?: No Do you have trouble with day-to-day activities such as bathing, preparing meals, shopping, managing finances, etc.?: No Are you currently unemployed and looking for a job?: I choose not to answer this question Are you interested in more education?: No Please select the resources that you would like help with: Food Currently or been in a relationship where the following occur: No concerns reported THRIVE Score: 3 AUDIT C Alcohol Use Questionnaire (AUDIT-C) 1. How often do you have a drink containing alcohol?: Never Total Score: 0 DOMENICO-7 AMB Questionnaire DOMENICO-7 Date DOMENICO - 7 assessed: 06/09/24 Feeling nervous, anxious, or on edge: 0 = Not at all Not being able to stop or control worryin = Several days Worrying too much about different things: 1 = Several days Trouble relaxin = Not at all Being so restless that it is hard to sit still: 0 = Not at all Becoming easily annoyed or irritable: 0 = Not at all Feeling afraid as if something awful might happen: 0 = Not at all Total DOMENICO-7 score (0-4 normal; 5-9 mild; 10-14 moderate; 15-21 severe): 2 Source: Developed by Drs. Grabiel Zelaya, Anabela Hayden, Jose Wright and colleagues, with an educational jossue from [employer]. DOMENICO-7 Assessment Billing DOMENICO-7 Assessment Tool: DOMENICO-7 Assessment 57619 Review of Systems Const Denies chills and Denies fever(s) Eyes Reports requires corrective lenses ENT Reports no additional complaints Card Denies chest pain, Denies dyspnea and Denies dyspnea on exertion Resp Denies cough, Denies dyspnea and Denies dyspnea on exertion GI Denies abdominal pain, Denies melena, Denies bloating, Denies hematochezia, Denies change in bowel habits, Reports heartburn (Takes Tums on occasions, which lately has not been helping much) and Denies nausea Denies hematuria, Denies difficulty voiding, Denies dysuria, Denies urinary hesitancy and Denies urinary urgency Musc Reports no additional complaints Skin/Breast Denies breast pain, Denies breast mass, Denies dry skin, Denies lesions and Denies rash Neuro Reports no additional complaints and Reports paresthesias (fom prior shingles outbreak) Psych Reports no additional complaints Endo Denies polyphagia, Denies polydipsia and Denies polyuria Lenny/Lymph Denies easy bleeding and Denies easy bruising Aller/Immun Reports no additional complaints Physical exam (Primary Care) Vital Signs: Last Vital Signs Temp 97.9 F 06/09/24 10:44 Pulse 68 06/09/24 10:44 Resp 16 06/09/24 10:44 BP 100/74 06/09/24 10:44 Pulse Ox 96 06/09/24 10:44 Oxygen Delivery Method Room Air 06/09/24 10:44 BMI result Body Mass Index 38.6 Tobacco/Smoking Status: Tobacco use Status Tobacco use date assessed 06/09/24 06/09/24 10:27 Patient Tobacco Use Status Never used Tobacco 06/09/24 10:27 e-Cigarette/Vaping Use Never Used 06/09/24 10:27 PHQ-9: PHQ-9 Score PHQ-9: Total score 0 06/09/24 10:54 Depression Screening Interpretation: Negative (Controlled on paroxetine, in remission) Thrive Assessment: Date of Thrive Assessment Date Thrive assessed 06/09/24 06/09/24 10:27 Currently or been in a relationship where the following occur: No concerns reported Const General: comfortable and no acute distress Nutritional Appearance: obese Orientation/consciousness: patient oriented x3 HENGA General nose exam: Normal external nose present Face and sinus: Yes face symmetric Mouth: Normal oral and palatal mucosa present Eyes General: appearance normal, both eyes and all related structures Neck Neck: Yes full ROM, Yes no lymphadenopathy and Yes supple Thyroid: Thyroid normal Resp Effort & Inspection: normal respiratory effort and able to speak in complete sentences Auscultation: clear to auscultation bilaterally Cardio Rate: regular rate Rhythm: regular rhythm Heart sounds: S1 normal heart sound present and S2 normal heart sound present GI Inspection: Yes obesity Palpation (GI): Soft to palpation, nontender, no guarding and no masses Auscultation: normal bowel sounds Skin General skin exam: no rashes or lesions noted Neuro General: patient oriented x3, gait normal, Normal light touch and pain sensation and no focal motor deficits Extrem General: Yes full ROM, Yes no joint enlargement, Yes no calf tenderness and Yes normal gait Results Reviewed Results Reviewed: Laboratory Tests 06/02/24 11:10 Estimat Average Glucose 194 Hemoglobin A1c % 8.4 H Urine Creatinine 113.59 Urine Microalbumin 9.0 Microalb/Creat Ratio 7.9 Name: Carolina White Age/Sex: 68/F : 1955 Unit#: [id number] Attend Dr: Viviana Randolph MD Re06/02/24 Status: DEP REF Location: [facility] Disch: SPEC : [id number] GUNNAR: 06/02/24 STATUS: COMP REQ : [id number] RECD: 06/02/24-[address]: Viviana Randolph MD COMP: 06/02/24-1358 ENTERED: 06/02/24-[address] [facility] [address]: ORDERED: Met Prof Fast, AST, ALT, Lipid Panel, Vitamin D 25-OH Test Result Flag Reference Sodium 140 135-145 mmol/L Potassium 4.3 3.3-5.1 mmol/L CL 104 96-108 mmol/L CO2 27 22-29 mmol/L Gap 13 12-20 BUN 13 9-16 mg/dL Creat 0.66 0.5-1.4 mg/dL eGFR > 60 Chronic Kidney Disease: Estimated GFR < 60 mL/min/1.73m2 Severe Kidney Disease: Estimated GFR < 15 mL/min/1.73m2 FBS 181 H 60-99 mg/dL A fasting glucose of 126 mg/dl or greater on more than one occasion is considered diagnostic of diabetes. CA 9.6 8.4-10.2 mg/dL AST (GOT) 31 5-31 U/L ALT (GPT) 14 0-31 U/L Triglyceride 130 <150 mg/dL Desirable Triglyceride: less than 150 mg/dL Borderline High Triglyceride 150-199 mg/dL High Triglyceride: 200-499 mg/dL Very High Triglyceride: greater than or equal to 5OO mg/dL Cholesterol 126 <200 mg/dL Desirable Cholesterol: less than 200 mg/dL Borderline High Cholesterol: 200-239 mg/dL High Cholesterol: greater than 239 mg/dL LDL Calculated 64 <100 mg/dL Desirable LDL: less than 100 mg/dL Near Optimal/Above Optimal LDL: 110-129 mg/dL Borderline High LDL: 130-159 mg/dL High LDL: 160-189 mg/dL Very High LDL: greater than or equal to 190 mg/dL HDL 36 L >40 mg/dL Desirable HDL: greater than 40 mg/dL Note: This HDL assay may give artificially low results in patients with liver disease. 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 Diabetes mellitus type: type 2 Morbid obesity E66.01 Pure hypercholesterolemia E78.00 Hyperlipidemia type: pure hypercholesterolemia HTN (hypertension) I10 Recurrent major depressive disorder, remission status unspecified F33.9 Depression Type: major depressive disorder Major depression recurrence: recurrent Active/Remission status: remission status unspecified Additional Codes PHQ-9 - 01974 - PHQ-9 Billing: Yes ([id number]) DOMENICO-7 Assessment Billing - DOMENICO-7 Assessment Tool: DOMENICO-7 Assessment 61965 ([id number]) Assessment & Plan Assessment & Plan (1) Diabetes mellitus with hyperglycemia: Code(s): E11.65 - Type 2 diabetes mellitus with hyperglycemia Category: Medical Qualifiers: Diabetes mellitus usp insulin use: without usp use Diabetes mellitus type: type 2 Qualified Code(s): E11.65 - Type 2 diabetes mellitus with hyperglycemia Plan: Farxiga has been discontinued, continued on metformin a 1000 mg 1 tablet twice a day, and will restart back again on Trulicity 0.75 mg injected once a week. Reinforced importance of following a diabetic diet and getting regular exercise. Reminded to get her diabetes retinopathy screening. Patient will schedule with [place] [facility]. Inspect feet for any lesions or calluses. Declined recommendation to get flu vaccine yearly. Up-to-date with her pneumococcal vaccine (2) Morbid obesity: Code(s): E66.01 - Morbid (severe) obesity due to excess calories Category: Medical Plan: Reinforced importance of following recommended diet and getting regular exerci se, will put her back on Trulicity to see if this will help with weight loss. (3) Hyperlipidemia: Code(s): E78.5 - Hyperlipidemia, unspecified Category: Medical Qualifiers: Hyperlipidemia type: pure hypercholesterolemia Qualified Code(s): E78.00 - Pure hypercholesterolemia, unspecified Plan: Reviewed recent fasting lipid profile with patient with levels within normal limit . Continue rosuvastatin 5 mg daily , in addition to adherence to low-cholesterol diet and regular exercise, at least 30 minutes 3 to 4 times a week. Advised patient to make healthy food choices, eat more fruits, vegetables, whole grains, wild caught fish and low-fat dairy. Limit amount of meat and fried or fatty food products, as well as processed foods and fast foods. Follow-up scheduled with repeat fasting lipid panel in September 2024. (4) HTN (hypertension): Code(s): I10 - Essential (primary) hypertension Category: Medical Plan: Blood pressure at goal of less than 130/80. Continue with lisinopril 10 mg daily. Reinforced importance of following a low sodium diet, getting regular exercise, and lowering stress levels. (5) Depression: Code(s): F32.9 - Major depressive disorder, single episode, unspecified Category: Medical Qualifiers: Depression Type: major depressive disorder Major depression recurrence: recurrent Active/Remission status: remission status unspecified Qualified Code(s): F33.9 - Major depressive disorder, recurrent, unspecified Plan: Depression symptoms stable and controlled on paroxetine 30 mg daily in a.m. Orders: Orders Hemoglobin A1c 09/15/24 E11.65 - Type 2 diabetes mellitus with hyperglycemia, E66.01 - Morbid (severe) obesity due to excess calories, E78.00 - Pure hypercholesterolemia, unspecified Aspartate Amino Transferase 09/15/24 E11.65 - Type 2 diabetes mellitus with hyperglycemia, E66.01 - Morbid (severe) obesity due to excess calories, E78.00 - Pure hypercholesterolemia, unspecified Lipid Panel 09/15/24 E11.65 - Type 2 diabetes mellitus with hyperglycemia, E66.01 - Morbid (severe) obesity due to excess calories, E78.00 - Pure hypercholesterolemia, unspecified Alanine Aminotransferase 09/15/24 E11.65 - Type 2 diabetes mellitus with hyperglycemia, E66.01 - Morbid (severe) obesity due to excess calories, E78.00 - Pure hypercholesterolemia, unspecified Basic Metabolic Panel Fasting 09/15/24 E11.65 - Type 2 diabetes mellitus with hyperglycemia, E66.01 - Morbid (severe) obesity due to excess calories, E78.00 - Pure hypercholesterolemia, unspecified Medications: New Trulicity (dulaglutide) 0.75 mg (0.5 mL) subcut QWEEK 2 mL 0RF NS E11.65 - Type 2 diabetes mellitus with hyperglycemia, E66.01 - Morbid (severe) obesity due to excess calories
[2024-06-09 10:44] VITALS: BP 100/74; PULSE 68; RESP 16; TEMP 36.6; O2SAT 96; BMI 38.6
== END 2024-06-09 11:12 | disposition home or self-care (01) ==
LOC: HO.HMCC 10:18
PROVIDERS: PCP Internal Medicine; Visit Provider Internal Medicine
DX: E11.65 Type 2 diabetes mellitus with hyperglycemia (principal); E66.01 Morbid (severe) obesity due to excess calories; F33.9 Major depressive disorder, recurrent, unspecified; Z68.38 Body mass index [BMI] 38.0-38.9, adult; E78.00 Pure hypercholesterolemia, unspecified; I10 Essential (primary) hypertension

== ENCOUNTER → 2024-06-09 10:17 | Outpatient (BNVA) | payer MEDICARE, SELFPAY | PROVIDERS: PCP Internal Medicine; Visit Provider Internal Medicine | DX: E11.65 Type 2 diabetes mellitus with hyperglycemia (principal); E66.01 Morbid (severe) obesity due to excess calories; Z68.38 Body mass index [BMI] 38.0-38.9, adult; E78.00 Pure hypercholesterolemia, unspecified; I10 Essential (primary) hypertension; F33.9 Major depressive disorder, recurrent, unspecified; Z71.3 Dietary counseling and surveillance | CPT/HCPCS: 96127; 99212 ==

== ENCOUNTER 2024-09-29 09:45 | Outpatient (REF) | payer MEDICARE, SELFPAY ==
[2024-09-29 14:11] LABS: Hemoglobin A1C 264.0777 umol/L; Total Hemoglobin (HGBA1C) 3530.3308 umol/L
[2024-09-29 14:12] LABS: Alanine Aminotransferase 12 U/L (0-31); Anion Gap 13 (12-20); Aspartate Amino Transferase 29 U/L (5-31); Blood Urea Nitrogen 21 mg/dL (9-16); Calcium 9.4 mg/dL (8.4-10.2); Carbon Dioxide 27 mmol/L (22-29); Chloride 104 mmol/L (96-108); Cholesterol 135 mg/dL (<200); Estimated Glomerular Filt Rate > 60; HDL Cholesterol 39 mg/dL (>40); Potassium 4.3 mmol/L (3.3-5.1); Sodium 140 mmol/L (135-145); Triglycerides 113 mg/dL (<150)
== END 2024-09-29 09:46 | disposition home or self-care (01) ==
LOC: HO.HMGCLDS 09:45
PROVIDERS: PCP Internal Medicine; Visit Provider Internal Medicine
DX: E11.65 Type 2 diabetes mellitus with hyperglycemia (principal); E66.01 Morbid (severe) obesity due to excess calories; E78.00 Pure hypercholesterolemia, unspecified
CPT/HCPCS: 36415; 80048; 80061; 83036; 84450; 84460

== ENCOUNTER 2024-10-05 10:49 | Outpatient (AMB) | payer MEDICARE, SELFPAY ==
--- NOTE | 2024-10-05 11:40 | AM.OFFVISMDC ---
Intake Vital Signs 10/05/24 11:41 Height 5 ft 3 in Weight 226 lb BMI 40.0 BP 110/70 Blood Pressure Location Rt brachial Position Sitting Respiration 16 Pulse 63 Pulse Source Pulse Oximeter Temp 98.4 F Temp Source Oral Pulse Oximetry (%) 95 Oxygen Delivery Method Room Air Intake Visit Reasons: AWV G0438 & follow up Intake Note: Pt is here today for her AWV: Last mammogram 02/22/22, colonoscopy 11/26/19 Allergies amoxicillin (AMOXICILLIN) Allergy (Intermediate, Verified 10/05/24 11:58) RASH Penicillins (PENICILLINS) Allergy (Intermediate, Verified 10/05/24 11:58) RASH Sulfa (Sulfonamide Antibiotics) (SULFA (SULFONAMIDE ANTIBIOTICS)) Allergy (Intermediate, Verified 10/05/24 11:58) RASH, hives sulfamethoxazole (From BACTRIM) Allergy (Intermediate, Verified 10/05/24 11:58) RASH dapagliflozin (From Farxiga) Adverse Reaction (Verified 10/05/24 11:58) rash and diarrhea empagliflozin (From Jardiance) Adverse Reaction (Verified 10/05/24 11:58) Nausea Medication List - Last Reconciled 10/05/24 by Viviana Randolph MD acetaminophen (Tylenol) 325 mg PO QID PRN blood sugar diagnostic (OneTouch Verio test strips) test blood sugar daily blood-glucose meter (OneTouch Verio Meter) use to test blood sugar famotidine 40 mg PO DAILY gabapentin 100 mg PO BID 30 days lancets (OneTouch Delica Lancets) Test blood sugar daily lisinopril 10 mg PO DAILY metformin 1,000 mg PO BID paroxetine HCl 30 mg PO QAM rosuvastatin 5 mg PO DAILY HPI AWV G0438 & follow up HPI Details AWV ? 68 year old presents for her ? Annual Wellness Visit, initial visit. Overdue for her breast cancer screening, with last mammogram done in 2021, never had a bone density scan. Has declined to do cervical cancer screening. She had a screening colonoscopy done 11/26/[address] Bishop due again this year. She had a normal fasting lipid panel done 09/29/2024 but had a low HDL level, in also had her fasting glucose and hemoglobin A1c done at the same time which came back elevated at 205 and 9% respectively. She is up-to-date with her tetanus diphtheria, and pneumonia vaccination, but does not want to get flu shots or COVID vaccines also declined recommendation to get vaccinated against herpes zoster. ? Medical / Social History Reviewed? Past Medical History ?Yes . ? [place] of Care / Care Team list updated ?Yes . ? Surgical/Hospitalization History ?Yes . ? Current Medications (including OTC and supplements) ?Yes . ? Family History ?Yes . ? Tobacco Control form ?Yes . ? AUDIT-C (Alcohol use) form ?Yes . ? Illicit drug use in Social History ?Yes . ? Current diagnosis of depression? ?No ? Appropriate PHQ2/PHQ9 completed ?Yes . ? Data entered by ?[employer] and reviewed by provider ? Fall Risk ? Fall History? Have you had any falls with injury in the past year? ?No . ? Have you had two or more falls in the past year? ?No . ? Fall Risk Assessment: ?No falls in the past year . ? HRA filled out by the patient, reviewed by Provider and scanned.-MOLST and healthcare proxy form done today ?AWV ? Balance? Romberg negative . ? Tandem walk ?Yes . ? Walk and Turn ?unable ? Rise from sit to stand ?Yes . ?Vision? Corrective lens ?Yes ? Vision screen ?overdue to get her annual eye exam and diabetes retinopathy screening done ?Hearing? Whisper test ?pass . ?Written Plan?Completed. See Patient Documents.? HPI Comments History of Present Illness Details 60-year-old lady here today for follow-up on her diabetes mellitus. Currently taking metformin 1000 mg 1 tablet twice a day, with latest hemoglobin A1c at 9% , overdue to get her diabetes retinopathy screening. Blood pressure stable and controlled on lisinopril 10 mg daily and in lipids are all within normal limits, currently on rosuvastatin 5 mg daily. Patient states that she is limited what she can by for food and eats what is available most of the time. [facility] Medical History HTN (hypertension) History of vitamin D deficiency History of herpes zoster Morbid obesity GERD (gastroesophageal reflux disease) Influenza vaccination declined Diabetes mellitus with hyperglycemia PHN (postherpetic neuralgia) Internal and external hemorrhoids without complication Gastritis Varicose vein of leg IBS (irritable bowel syndrome) Carpal tunnel syndrome of left wrist Osteoarthritis Hyperlipidemia Surgical History History of carpal tunnel surgery Tubal ligation status H/O colonoscopy Family History Father Esophageal cancer Alcoholism Mother Diabetes mellitus HTN (hypertension) CVA (cerebral vascular accident) Hyperlipidemia Sister Diabetes mellitus Social History Household Members: Family Housing: House Alcohol intake: never Comment: sleeping Patient Tobacco Use Status: Never used Tobacco e-Cigarette/Vaping Use: Never Used Second Hand Smoke Exposure: No service: No Current occupational status: employed 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 Cognitive needs: No Hearing needs: No Vision needs: Yes Questionnaire Medicare Wellness Checkup What [age]?: 65-69 What gender do you identify with?: female During the past 4 weeks, how much have you been bothered by emotional problems such as feeling anxious, depressed, irritable, sad or downhearted, and blue?: slightly During the past 4 weeks, has your physical & emotional health limited your social activities with family, friends, neighbors, or groups?: not at all During the past 4 weeks, how much bodily pain have you generally had?: moderate pain During the past 4 weeks, was someone available to help you if you needed & wanted help?: yes, as much as I wanted During the past 4 weeks, what was the hardest physical activity you could do for at least 2 minutes?: moderate Can you get to places out of walking distance without help? (For eg., can you travel alone on buses, taxis or drive your car?): Yes Can you go shopping for groceries or clothes without someone's help?: Yes Can you prepare your own meals?: Yes Can you do your housework without help?: Yes Because of any health problems, do you need the help of another person with your personal care needs such as eating, bathing, dressing or getting around the house?: No Can you handle your own money without help?: Yes During the past 4 weeks, how would you rate your health in general?: good During the past 4 weeks how have things been going for you?: good & bad parts about equal Are you having difficulties driving your car?: no Do you always fasten your seat belt when you are in a car?: yes, usually During past 4 weeks, have you been bothered by the following: never: Falling or dizzy when standing up, Sexual problems?, Trouble eating well?, Teeth or denture problems?, Problems using the telephone? and Tiredness or fatigue? Have you fallen 2 or more times in the past year?: Yes Are you afraid of falling?: Yes Are you a smoker?: no During the past 4 weeks, how many drinks of wine, beer, or other alcoholic beverages did you have?: no alcohol at all Do you exercise for about 20 minutes 3 or more times a week?: yes, some of the time Have you been given information to help with the following?: no: Hazards in your house that might hurt you? and no: Keeping track of your medications? How often do you have trouble taking medicines the way you have been told to take them?: I always take medicine as prescribed How confident are you that you can control & manage most of your health problems?: very confident What is your race?: White Mini Mental State Exam (MMSE) Orientation What is the (year) (season) (date) (day) (month)?: year (2024), season (summer), date (10/05/24), day (saturday) and month (september) Where are we (state) (county) (town or city) (hospital) (floor)?: state ([facility]), county ([place]), town or city ([place] and hospital/clinic ([facility]) Score Score: 9 Activity of Daily Living Bathing - sponge bath, tub bath or shower: receives no assistance (gets in/out by self, if usual bathing means Dressing - getting clothes from closets & drawers, including inner/outer garments & fasteners.: gets clothes & gets completely dressed without help Toileting - going to the 'toilet room' for urine/bowel elimination & cleaning self/arranging clothes: goes to toilet room, cleans self, arranges clothes without help Transfer: moves in & out of bed and chair without help (may use support object) Continence: has occasional 'accidents' Feeding: feeds self without help Total Score: 0 Information obtained from: patient Using telephone: independent Traveling: independent Shopping: independent Preparing meals: independent Housework: independent Taking medicine: independent Managing money: independent PHQ-9 Over the last 2 weeks, how often have you been bothered by any of the following problems? 1. Little interest or pleasure in doing things: not at all 2. Feeling down, depressed, or hopeless: not at all 3. Trouble falling or staying asleep, or sleeping too much: several days 4. Feeling tired or having little energy: not at all 5. Poor appetite or overeating: not at all 6. Feeling bad about yourself - or that you are a failure or have let yourself or your family down: not at all 7. Trouble concentrating on things, such as reading the newspaper or watching television: not at all 8. Moving or speaking so slowly that other people could have noticed. Or the opposite - being so fidgety or restless that you have been moving around a lot more than usual: not at all 9. Thoughts that you would be better off or of hurting yourself in some way: not at all Total score: 1 Depression Screening Interpretation: Negative Depression Screening Done: Yes 63722 - PHQ-9 Billing: Yes Source: Developed by Drs. Grabiel Zelaya, Anabela Hayden, Jose Wright and colleagues, with an educational jossue from [employer]. Review of Systems Const Denies chills and Denies fever(s) Eyes Reports requires corrective lenses ENT Reports no additional complaints Card Denies chest pain, Denies dyspnea and Denies dyspnea on exertion Resp Denies cough, Denies dyspnea and Denies dyspnea on exertion GI Denies abdominal pain, Denies melena, Denies bloating, Denies hematochezia, Denies change in bowel habits, Reports heartburn (Takes Tums on occasions, which lately has not been helping much) and Denies nausea Denies hematuria, Denies difficulty voiding, Denies dysuria, Denies urinary hesitancy and Denies urinary urgency Musc Reports no additional complaints Skin/Breast Denies breast pain, Denies breast mass, Denies dry skin, Denies lesions and Denies rash Neuro Reports no additional complaints and Reports paresthesias (fom prior shingles outbreak) Psych Reports no additional complaints Endo Denies polyphagia, Denies polydipsia and Denies polyuria Lenny/Lymph Denies easy bleeding and Denies easy bruising Aller/Immun Reports no additional complaints Physical Exam Vital Signs: Last Vital Signs Temp 98.4 F 10/05/24 11:41 Pulse 63 10/05/24 11:41 Resp 16 10/05/24 11:41 BP 110/70 10/05/24 11:41 Pulse Ox 95 10/05/24 11:41 Oxygen Delivery Method Room Air 10/05/24 11:41 BMI result Body Mass Index 40.0 Const General: no acute distress Nutritional Appearance: obese Orientation/consciousness: patient oriented x3 HEENT Head: Yes normal to inspection Ears: TM's normal bilaterally and EAC's normal General nose exam: Normal nasal mucous membranes and turbinates present Eyes General: appearance normal, both eyes and all related structures Neck Neck: Yes full ROM, Yes no lymphadenopathy, Yes supple and Yes no JVD Thyroid: Thyroid normal Resp Effort & Inspection: normal respiratory effort and able to speak in complete sentences Auscultation: clear to auscultation bilaterally Cardio Palpation: normal PMI Rate: regular rate Rhythm: regular rhythm Heart sounds: S1 normal heart sound present and S2 normal heart sound present GI Other: Normoactive bowel sounds, soft, nontender, no guarding no mass palpated Skin General skin exam: no petechiae and no purpura Lesions: no lesions Rashes: no rashes Neuro General: patient oriented x3, gait normal, moves all extremities and no focal motor deficits Extrem General: Yes full ROM, Yes no pedal edema and Yes no calf tenderness Results Reviewed Results Reviewed: janessa: Carolina White Age/Sex: 68/F : 1955 Unit#: [id number] Attend Dr: Viviana Randolph MD Re09/29/24 Status: DEP REF Location: [facility] Disch: SPEC : [id number] GUNNAR: 09/29/24 STATUS: COMP REQ : [id number] RECD: 09/29/24-[address]: Viviana Randolph MD COMP: 09/29/24 ENTERED: 09/29/24 [facility] DR: ORDERED: Met Prof Fast, AST, ALT, Lipid Panel Test Result Flag Reference Sodium 140 135-145 mmol/L Potassium 4.3 3.3-5.1 mmol/L CL 104 96-108 mmol/L CO2 27 22-29 mmol/L Gap 13 12-20 BUN 21 H 9-16 mg/dL Creat 0.56 0.5-1.4 mg/dL eGFR > 60 Chronic Kidney Disease: Estimated GFR < 60 mL/min/1.73m2 Severe Kidney Disease: Estimated GFR < 15 mL/min/1.73m2 FBS 205 H 60-99 mg/dL A fasting glucose of 126 mg/dl or greater on more than one occasion is considered diagnostic of diabetes. CA 9.4 8.4-10.2 mg/dL AST (GOT) 29 5-31 U/L ALT (GPT) 12 0-31 U/L Triglyceride 113 <150 mg/dL Desirable Triglyceride: less than 150 mg/dL Borderline High Triglyceride 150-199 mg/dL High Triglyceride: 200-499 mg/dL Very High Triglyceride: greater than or equal to 5OO mg/dL Cholesterol 135 <200 mg/dL Desirable Cholesterol: less than 200 mg/dL Borderline High Cholesterol: 200-239 mg/dL High Cholesterol: greater than 239 mg/dL LDL Calculated 74 <100 mg/dL Desirable LDL: less than 100 mg/dL Near Optimal/Above Optimal LDL: 110-129 mg/dL Borderline High LDL: 130-159 mg/dL High LDL: 160-189 mg/dL Very High LDL: greater than or equal to 190 mg/dL HDL 39 L >40 mg/dL Desirable HDL: greater than 40 mg/dL Note: This HDL assay may give artificially low results in patients with liver disease. Laboratory Tests 06/02/24 11:10 Microalb/Creat Ratio 7.9 Laboratory Tests 09/29/24 09:50 Estimat Average Glucose 212 Hemoglobin A1c % 9.0 H Assessment & Plan Assessment & Plan (1) Hyperlipidemia: Code(s): E78.5 - Hyperlipidemia, unspecified Qualifiers: Hyperlipidemia type: pure hypercholesterolemia Qualified Code(s): E78.00 - Pure hypercholesterolemia, unspecified Plan: Continued on rosuvastatin 5 mg daily (2) Diabetes mellitus with hyperglycemia: Code(s): E11.65 - Type 2 diabetes mellitus with hyperglycemia Qualifiers: Diabetes mellitus long term care administrator insulin use: without long term care administrator use Diabetes mellitus type: type 2 Qualified Code(s): E11.65 - Type 2 diabetes mellitus with hyperglycemia Plan: Continue with metformin 1000 mg 1 tablet twice a day. Will add Trulicity 3 mg injected subcutaneously once a week. Reinforced importance of following healthy diet and getting regular exercise. Reminded to get her yearly diabetes retinopathy screening (3) Morbid obesity: Code(s): E66.01 - Morbid (severe) obesity due to excess calories Plan: . Discussed need to increase activity and weight reduction. Recommended focusing on improving health instead of dieting. Mediterranean diet is a healthy diet that helps, limit food high in fat, sugar, and calories. Eat slowly, pay attention to portion sizes, plan your meals ahead of time, start regular physical activity, at least 150 minutes of moderate intensity exercise (4) Encounter for screening for malignant neoplasm of colon: Code(s): Z12.11 - Encounter for screening for malignant neoplasm of colon Plan: Referred to [facility] for her repeat colonoscopy screening (5) HTN (hypertension): Code(s): I10 - Essential (primary) hypertension Plan: Hypertension controlled on lisinopril will continue on 10 mg daily (6) Encounter for annual wellness visit (AWV) in Medicare patient: Code(s): Z00.00 - Encounter for general adult medical examination without abnormal findings Plan: Medical wellness checklist, reviewed, discussed with patient and updated. Reminded to get her yearly diabetes eye exam, ordered bone density scan to be done together with screening mammogram referred to [facility] for her repeat colonoscopy screening Orders: Orders XR DEXA axial skeleton 10/05/24 Z12.31 - Encounter for screening mammogram for malignant neoplasm of breast, Z13.820 - Encounter for screening for osteoporosis, Z78.0 - Asymptomatic menopausal state Lipid Panel 12/16/24 E11.65 - Type 2 diabetes mellitus with hyperglycemia, E78.00 - Pure hypercholesterolemia, unspecified, I10 - Essential (primary) hypertension Aspartate Amino Transferase 12/16/24 E11.65 - Type 2 diabetes mellitus with hyperglycemia, E78.00 - Pure hypercholesterolemia, unspecified, I10 - Essential (primary) hypertension Vitamin D 25-OH Total 12/16/24 E11.65 - Type 2 diabetes mellitus with hyperglycemia, E78.00 - Pure hypercholesterolemia, unspecified, I10 - Essential (primary) hypertension MM tomosynthesis screening BI 10/05/24 Z12.31 - Encounter for screening mammogram for malignant neoplasm of breast, Z13.820 - Encounter for screening for osteoporosis, Z78.0 - Asymptomatic menopausal state Hemoglobin A1c 12/16/24 E11.65 - Type 2 diabetes mellitus with hyperglycemia, E78.00 - Pure hypercholesterolemia, unspecified, I10 - Essential (primary) hypertension Alanine Aminotransferase 12/16/24 E11.65 - Type 2 diabetes mellitus with hyperglycemia, E78.00 - Pure hypercholesterolemia, unspecified, I10 - Essential (primary) hypertension Basic Metabolic Panel Fasting 12/16/24 E11.65 - Type 2 diabetes mellitus with hyperglycemia, E78.00 - Pure hypercholesterolemia, unspecified, I10 - Essential (primary) hypertension Microalbumin, Random (w Creat) 12/16/24 E11.65 - Type 2 diabetes mellitus with hyperglycemia, E78.00 - Pure hypercholesterolemia, unspecified, I10 - Essential (primary) hypertension Referrals Gastroenterology Referral Z12.11 - Encounter for screening for malignant neoplasm of colon Medications: New Trulicity (dulaglutide) 3 mg (0.5 mL) subcut QWEEK 2 mL 5RF NS E11.65 - Type 2 diabetes mellitus with hyperglycemia, E66.01 - Morbid (severe) obesity due to excess calories, E78.00 - Pure hypercholesterolemia, unspecified celecoxib 200 mg PO DAILY PRN 30 caps 0RF joint pain 30 days Quality Reporting (2019) Depression/Bipolar (159/160/161/177) PHQ-9: Total score: 1 Coding Level of Care Code Medicare First (G0438) Est Pt Level 4 (31517) Diagnoses Pure hypercholesterolemia E78.00 Hyperlipidemia type: pure hypercholesterolemia Type 2 diabetes mellitus with hyperglycemia, without long-term current use of insulin E11.65 Diabetes mellitus care home insulin use: without long term care administrator use Diabetes mellitus type: type 2 Morbid obesity E66.01 Encounter for screening for malignant neoplasm of colon Z12.11 HTN (hypertension) I10 Encounter for annual wellness visit (AWV) in Medicare patient Z00.00 CPT Codes Advance Care Planning - Time spent: 16-45 minutes ([id number]) Additional Codes PHQ-9 - 30730 - PHQ-9 Billing: Yes ([id number]) Advance Care Planning Advance Care Planning discussion: Completed/Scanned Date of discussion: 10/05/24 Who was present: Patient Forms completed: Health Care Proxy and MOLST Time spent: 16-45 minutes Actual minutes spent: 5
[2024-10-05 11:41] VITALS: BP 110/70; PULSE 63; RESP 16; TEMP 36.9; O2SAT 95; BMI 40.0
== END 2024-10-05 12:33 | disposition home or self-care (01) ==
LOC: HO.HMCC 10:50
PROVIDERS: PCP Internal Medicine; Visit Provider Internal Medicine
DX: Z00.00 Encounter for general adult medical examination without abnormal findings (principal); E11.65 Type 2 diabetes mellitus with hyperglycemia; E66.01 Morbid (severe) obesity due to excess calories; Z68.41 Body mass index [BMI] 40.0-44.9, adult; E78.00 Pure hypercholesterolemia, unspecified; Z12.11 Encounter for screening for malignant neoplasm of colon; I10 Essential (primary) hypertension

== ENCOUNTER → 2024-10-05 10:49 | Outpatient (BNVA) | payer MEDICARE, SELFPAY | PROVIDERS: PCP Internal Medicine; Visit Provider Internal Medicine | DX: Z00.00 Encounter for general adult medical examination without abnormal findings (principal); E78.00 Pure hypercholesterolemia, unspecified; E11.65 Type 2 diabetes mellitus with hyperglycemia; E66.01 Morbid (severe) obesity due to excess calories; I10 Essential (primary) hypertension | CPT/HCPCS: 96127; 99212 ==

== ENCOUNTER 2024-11-26 13:25 | Outpatient (REF) | payer MEDICARE, SELFPAY ==
--- NOTE | ~2024-11-26 | MM_ITS ---
EXAMINATION: DXA BONE DENSITY AXIAL HISTORY: Z12.31 - Encounter for screening mammogram for malignant neoplasm of breast TECHNIQUE: One Hour Translation Dual energy absorptiometry (DEXA) of the lumbar spine, total left hip, and femoral neck was performed. COMPARISON: There are no prior studies for comparison. FINDINGS: The bone mineral density of the lumbar spine is 1.835 g/cm2, corresponding to a T-score of 5.5, and a Z-score of 6.0. This is indicative of normal bone mineral density. The bone mineral density of the left total hip is 1.273 g/cm2, corresponding to a T-score of 2.1, and a Z-score of 2.7. This is indicative of normal bone mineral density. The bone mineral density of the left femoral neck is 1.159 g/cm2, corresponding to a T-score of 0.9, and a Z-score of 1.8. This is indicative of normal bone mineral density. MM/XR DEXA axial skeleton IMPRESSION: Based on bone mineral density, and according to World Health Organization (WHO) criteria, the diagnosis is consistent with normal bone mineral density. Statistically, 68% of repeat scans fall within 1 SD (+/- 0.010 g/cm2 for AP spine L1-L4) and 1 SD (+/- 0.012 g/cm2 for femur total) FRAX is a trademark of the [employer] [place] for Metabolic Bone Disease, a World Health Organization (WHO) Collaborating Center. Electronically signed by: Grabiel Cummins MD 11/26/2024 01:50 PM EDT
--- NOTE | ~2024-11-26 | MM_ITS ---
EXAMINATION: MM SCREENING DIGITAL BREAST TOMOSYNTHESIS, BILATERAL CLINICAL INFORMATION: Screening. Asymptomatic. COMPARISON: Mammography: Comparison is made with available priors TECHNIQUE: Digital breast mammography with tomosynthesis is performed in both the craniocaudal and mediolateral oblique views along with computer-aided detection (CAD). FINDINGS: The breasts are heterogeneously dense, which may obscure small masses (ACR BI-RADS breast composition Category c). There are no significant masses, abnormal calcifications, or other abnormalities. MM/MM tomosynthesis screening BI IMPRESSION: No mammographic evidence of malignancy. ASSESSMENT: BI-RADS BI-RADS 1 - Negative RECOMMENDATION: Routine annual mammography screening. 1 year F/U This examination should not preclude the clinical evaluation of a suspicious palpable abnormality. This patient's information was entered into a reminder system with a target due date for their next mammogram. Electronically signed by: Lien Ellison DO 11/30/2024 06:08 PM EDDarryl
== END 2024-11-26 13:26 | disposition home or self-care (01) ==
LOC: HO.MAMMO 13:25
PROVIDERS: PCP Internal Medicine; Visit Provider Internal Medicine
DX: Z12.31 Encounter for screening mammogram for malignant neoplasm of breast (principal); Z13.820 Encounter for screening for osteoporosis; Z78.0 Asymptomatic menopausal state
CPT/HCPCS: 77063; 77067; 77080

== ENCOUNTER → 2024-11-26 13:30 | Outpatient (BNV) | payer MEDICARE, SELFPAY | PROVIDERS: PCP Internal Medicine; Visit Provider Radiology Diagnostic Radiology | DX: E28.39 Other primary ovarian failure (principal) | CPT/HCPCS: 77080 ==

== ENCOUNTER 2024-12-30 09:01 | Outpatient (REF) | payer MEDICARE, SELFPAY ==
[2024-12-30 10:57] LABS: Alanine Aminotransferase 17 U/L (0-31); Anion Gap 14 (12-20); Aspartate Amino Transferase 24 U/L (5-31); Blood Urea Nitrogen 17 mg/dL (9-16); Calcium 9.6 mg/dL (8.4-10.2); Carbon Dioxide 27 mmol/L (22-29); Chloride 100 mmol/L (96-108); Cholesterol 133 mg/dL (<200); Estimated Glomerular Filt Rate > 60; HDL Cholesterol 33 mg/dL (>40); Potassium 4.2 mmol/L (3.3-5.1); Sodium 137 mmol/L (135-145); Triglycerides 122 mg/dL (<150)
[2024-12-30 11:10] LABS: Microalbum/Creatinine Ratio Ur 14.2 ug/mg cr (<30)
== END 2024-12-30 09:02 | disposition home or self-care (01) ==
LOC: HO.HMGCLDS 09:01
PROVIDERS: PCP Internal Medicine; Visit Provider Internal Medicine
DX: I10 Essential (primary) hypertension (principal); E78.00 Pure hypercholesterolemia, unspecified; E11.65 Type 2 diabetes mellitus with hyperglycemia
CPT/HCPCS: 36415; 80048; 80061; 82043; 82306; 82570; 83036; 84450; 84460

== ENCOUNTER 2025-01-06 11:46 | Outpatient (AMB) | payer MEDICARE, SELFPAY ==
[2025-01-06 13:09] VITALS: BP 126/74; PULSE 78; RESP 16; O2SAT 97; BMI 39.5
--- NOTE | 2025-01-06 13:09 | MHC.PC.OV ---
Vital Signs 01/06/25 13:09 Height 5 ft 3 in Weight 223 lb BMI 39.5 BP 126/74 Blood Pressure Location Rt brachial Position Sitting Respiration 16 Pulse 78 Pulse Source Pulse Oximeter Pulse Oximetry (%) 97 Intake Visit Reasons: 3 months f/up/lvm to move Intake Note: Pt is here today for her 3mo. f/u Allergies amoxicillin (AMOXICILLIN) Allergy (Intermediate, Verified 01/06/25 13:47) RASH Penicillins (PENICILLINS) Allergy (Intermediate, Verified 01/06/25 13:47) RASH Sulfa (Sulfonamide Antibiotics) (SULFA (SULFONAMIDE ANTIBIOTICS)) Allergy (Intermediate, Verified 01/06/25 13:47) RASH, hives sulfamethoxazole (From BACTRIM) Allergy (Intermediate, Verified 01/06/25 13:47) RASH dapagliflozin (From Farxiga) Adverse Reaction (Verified 01/06/25 13:47) rash and diarrhea empagliflozin (From Jardiance) Adverse Reaction (Verified 01/06/25 13:47) Nausea Tobacco use date assessed: 01/06/25 Fall risk assessment: No Falls in past year Last assessed Fall Risk: 01/06/25 Dental Screening Dental Screen Date: 01/06/25 Did you have a dental visit in the last 12 months?: No Did you have a dental problem in the last 6 months where you did not have access to dental care?: No Was dental information given to patient?: Patient declined HPI 3 months f/up/lvm to move HPI Details 69-year-old lady here today complaining of severe pain in left hip joint which has been present now for the last several weeks, worse with walking. Has been taking a leave 1 tablet in the morning 1 tablet at night and escitalopram 500 mg in between which affords temporary relief. No history of trauma. She is also here for follow-up on her diabetes mellitus a. She is currently taking only metformin a 1000 mg 1 tablet twice a day. Has not been checking her sugars at home Was on Trulicity in the past but was unable to afford it after 4 co-pay went up. Unable to afford the GLP 1 agonists. She was started on Jardiance, which was later switched to Farxiga but unable to tolerate medication due to nausea and diarrhea, and high co-pay of medications. She was informed that she needed to be started on insulin but patient adamantly refusing . She is up-to-date eye exam, sees Dr. Abad seen this year, with no retinopathy seen. Urine microalbumin is negative, checked this year. Declined getting flu vaccine at present, but already had her Prevnar 20. Her lipids are stable and controlled on rosuvastatin taken 5 mg daily and blood pressure also stable and controlled on lisinopril 10 mg once a day. [facility] Medical History HTN (hypertension) History of vitamin D deficiency History of herpes zoster Morbid obesity GERD (gastroesophageal reflux disease) Influenza vaccination declined Diabetes mellitus with hyperglycemia PHN (postherpetic neuralgia) Internal and external hemorrhoids without complication Gastritis Varicose vein of leg IBS (irritable bowel syndrome) Carpal tunnel syndrome of left wrist Osteoarthritis Hyperlipidemia Surgical History History of carpal tunnel surgery Tubal ligation status H/O colonoscopy Family History Father Esophageal cancer Alcoholism Mother Diabetes mellitus HTN (hypertension) CVA (cerebral vascular accident) Hyperlipidemia Sister Diabetes mellitus Social History Household Members: Family Housing: House Alcohol intake: never Comment: sleeping Patient Tobacco Use Status: Never used Tobacco e-Cigarette/Vaping Use: Never Used Second Hand Smoke Exposure: No service: No Current occupational status: employed 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 1. Little interest or pleasure in doing things: not at all 2. Feeling down, depressed, or hopeless: not at all 3. Trouble falling or staying asleep, or sleeping too much: several days 4. Feeling tired or having little energy: not at all 5. Poor appetite or overeating: not at all 6. Feeling bad about yourself - or that you are a failure or have let yourself or your family down: not at all 7. Trouble concentrating on things, such as reading the newspaper or watching television: not at all 8. Moving or speaking so slowly that other people could have noticed. Or the opposite - being so fidgety or restless that you have been moving around a lot more than usual: not at all 9. Thoughts that you would be better off or of hurting yourself in some way: not at all Total score: 1 Depression Screening Interpretation: Negative Depression Screening Done: Yes Source: Developed by Drs. Grabiel Zelaya, Anabela Hayden, Jose Wright and colleagues, with an educational jossue from sharing[email or web address]. Thrive Questionnaire Date Thrive assessed: 06/09/24 I am a: Patient What is your living situation today?: I have a place to live, but I am worried about losing it in the future Within the past 12 months, did the food you bought not last and you didn't have the money to get more?: Sometimes True Within the past 12 months, did you worry whether your food would run out before you got money to buy more?: Often true Do you have trouble paying for medicines?: I choose not to answer this question Do you have trouble getting transportation to medical appointments?: No Do you have trouble paying your heating and electricity bill?: No Do you have trouble taking care of your child, family member or friend?: No Do you have trouble with day-to-day activities such as bathing, preparing meals, shopping, managing finances, etc.?: No Are you currently unemployed and looking for a job?: I choose not to answer this question Are you interested in more education?: No Please select the resources that you would like help with: Food Currently or been in a relationship where the following occur: No concerns reported THRIVE Score: 3 AUDIT C Alcohol Use Questionnaire (AUDIT-C) 1. How often do you have a drink containing alcohol?: Never Total Score: 0 DOMENICO-7 AMB Questionnaire DOMENICO-7 Date DOMENICO - 7 assessed: 06/09/24 Feeling nervous, anxious, or on edge: 0 = Not at all Not being able to stop or control worryin = Several days Worrying too much about different things: 1 = Several days Trouble relaxin = Not at all Being so restless that it is hard to sit still: 0 = Not at all Becoming easily annoyed or irritable: 0 = Not at all Feeling afraid as if something awful might happen: 0 = Not at all Total DOMENICO-7 score (0-4 normal; 5-9 mild; 10-14 moderate; 15-21 severe): 2 Source: Developed by Drs. Grabiel Zelaya, Anabela Hayden, Jose Wright and colleagues, with an educational jossue from [email or web address]. Review of Systems Const Denies fever(s) and Reports malaise Eyes Details: Sees Dr. Abad, up-to-date with her diabetes retinopathy screening Reports requires corrective lenses ENT Reports dry mouth Card Denies chest pain, Denies dyspnea and Denies dyspnea on exertion Resp Denies cough, Denies dyspnea and Denies dyspnea on exertion GI Denies abdominal pain, Denies melena, Denies bloating, Denies hematochezia, Denies change in bowel habits, Reports heartburn (Takes famotidine, which has been helping) and Denies nausea Denies hematuria, Denies difficulty voiding, Reports nocturia, Denies dysuria, Reports urinary incontinence, Denies urinary hesitancy and Reports urinary urgency Musc Reports no additional complaints Skin/Breast Denies breast pain, Denies breast mass, Denies dry skin, Denies lesions and Denies rash Neuro Reports no additional complaints and Reports paresthesias (fom prior shingles outbreak) Psych Reports no additional complaints Endo Denies polyphagia, Reports polydipsia and Reports polyuria Lenny/Lymph Denies easy bleeding and Denies easy bruising Aller/Immun Reports seasonal rhinorrhea Physical exam (Primary Care) Tobacco/Smoking Status: Tobacco use Status Tobacco use date assessed 06/09/24 01/06/25 13:11 Patient Tobacco Use Status Never used Tobacco 01/06/25 13:11 e-Cigarette/Vaping Use Never Used 01/06/25 13:11 Depression Screening Interpretation: Negative Thrive Assessment: Date of Thrive Assessment Date Thrive assessed 06/09/24 01/06/25 13:11 Currently or been in a relationship where the following occur: No concerns reported Const General: comfortable and no acute distress Nutritional Appearance: obese Orientation/consciousness: patient oriented x3 HENMT General nose exam: Normal external nose present Face and sinus: Yes face symmetric Mouth: Normal oral and palatal mucosa present Eyes General: appearance normal, both eyes and all related structures Neck Neck: Yes full ROM, Yes no lymphadenopathy and Yes supple Resp Effort & Inspection: normal respiratory effort and able to speak in complete sentences Auscultation: clear to auscultation bilaterally Cardio Rate: regular rate Rhythm: regular rhythm Heart sounds: S1 normal heart sound present and S2 normal heart sound present GI Inspection: Yes obesity Palpation (GI): Soft to palpation, nontender, no guarding and no masses Auscultation: normal bowel sounds Back/Spine/Pelvis Other: Tenderness on palpation over lateral aspect of left hip, decreased range of motion especially on abduction flexion due to pain Skin General skin exam: no rashes or lesions noted Neuro General: patient oriented x3, gait normal, Normal light touch and pain sensation and no focal motor deficits Extrem General: Yes no joint enlargement, Yes no calf tenderness and Yes normal gait Results Reviewed Results Reviewed: Laboratory Tests 12/30/24 09:10 Estimat Average Glucose 321 Hemoglobin A1c % 12.8 H Urine Creatinine 112.51 Urine Microalbumin 16.0 Microalb/Creat Ratio 14.2 janessa: Carolina White Age/Sex: 69/F : 1955 Unit#: [id number] Attend Dr: Viviana Randolph MD Re12/30/24 Status: DEP REF Location: [facility] Disch: SPEC : [id number] GUNNAR: 12/30/24 STATUS: COMP REQ : [id number] RECD: 12/30/[address]: Viviana Randolph MD COMP: 12/30/24 ENTERED: 12/30/[address] [facility] DR: ORDERED: Met Prof Fast, AST, ALT, Lipid Panel, Vitamin D 25-OH Test Result Flag Reference Sodium 137 135-145 mmol/L Potassium 4.2 3.3-5.1 mmol/L CL 100 96-108 mmol/L CO2 27 22-29 mmol/L Gap 14 12-20 BUN 17 H 9-16 mg/dL Creat 0.59 0.5-1.4 mg/dL eGFR > 60 Chronic Kidney Disease: Estimated GFR < 60 mL/min/1.73m2 Severe Kidney Disease: Estimated GFR < 15 mL/min/1.73m2 FBS 331 H 60-99 mg/dL A fasting glucose of 126 mg/dl or greater on more than one occasion is considered diagnostic of diabetes. CA 9.6 8.4-10.2 mg/dL AST (GOT) 24 5-31 U/L ALT (GPT) 17 0-31 U/L Triglyceride 122 <150 mg/dL Desirable Triglyceride: less than 150 mg/dL Borderline High Triglyceride 150-199 mg/dL High Triglyceride: 200-499 mg/dL Very High Triglyceride: greater than or equal to 5OO mg/dL Cholesterol 133 <200 mg/dL Desirable Cholesterol: less than 200 mg/dL Borderline High Cholesterol: 200-239 mg/dL High Cholesterol: greater than 239 mg/dL LDL Calculated 76 <100 mg/dL Desirable LDL: less than 100 mg/dL Near Optimal/Above Optimal LDL: 110-129 mg/dL Borderline High LDL: 130-159 mg/dL High LDL: 160-189 mg/dL Very High LDL: greater than or equal to 190 mg/dL HDL 33 L >40 mg/dL Desirable HDL: greater than 40 mg/dL Note: This HDL assay may give artificially low results in patients with liver disease. Vitamin D 25-OH 64.8 >30 ng/mL Health Based Reference Values* < 20 ng/mL Deficient 20-30 ng/mL Insufficient > 30 ng/mL Sufficient Coding Level of Care Code Est Pt Level 4 (47844) Complex EM visit Add On G2211 Diagnoses Type 2 diabetes mellitus with hyperglycemia, without long-term current use of insulin E11.65 Diabetes mellitus type: type 2 Diabetes mellitus utilization management rn insulin use: without residential use Bilateral hip pain M25.551; M25.552 Recurrent major depressive disorder, remission status unspecified F33.9 Depression Type: major depressive disorder Major depression recurrence: recurrent Active/Remission status: remission status unspecified Primary hypertension I10 Hypertension type: primary hypertension Pure hypercholesterolemia E78.00 Hyperlipidemia type: pure hypercholesterolemia Assessment & Plan Assessment & Plan (1) Diabetes mellitus with hyperglycemia: Code(s): E11.65 - Type 2 diabetes mellitus with hyperglycemia Category: Medical Qualifiers: Diabetes mellitus type: type 2 Diabetes mellitus utilization management rn insulin use: without residential use Qualified Code(s): E11.65 - Type 2 diabetes mellitus with hyperglycemia Plan: Poorly controlled diabetes mellitus with hemoglobin A1c at 12.8% currently only taking metformin 1000 mg 1 tablet twice a day. Has been on Trulicity in the past but was unable to afford the higher co-pay, tried Jardiance and Farxiga but developed side effects of the medication, unable to afford GLP 1 agonists, very hesitant on starting insulin, referred to endocrine clinic for further evaluation and management. Reinforced importance of adhering to recommended diet, unable to do any exercise due to bilateral hip pain. Has been seen by Dr. Abad this year for her diabetes retinopathy screening came back negative. Urine microalbuminuria screening also was negative (2) Bilateral hip pain: Code(s): M25.551 - Pain in right hip; M25.552 - Pain in left hip Plan: X-ray of bilateral hip ordered may continue taking a leave 1 tablet twice a day as needed and fabio Tylenol 500 mg once a day at noon as needed for pain. (3) Depression: Code(s): F32.9 - Major depressive disorder, single episode, unspecified Category: Medical Qualifiers: Depression Type: major depressive disorder Major depression recurrence: recurrent Active/Remission status: remission status unspecified Qualified Code(s): F33.9 - Major depressive disorder, recurrent, unspecified Plan: Continued on paroxetine 30 mg daily in the morning (4) HTN (hypertension): Code(s): I10 - Essential (primary) hypertension Category: Medical Qualifiers: Hypertension type: primary hypertension Qualified Code(s): I10 - Essential (primary) hypertension Plan: Blood pressure at goal of less than 130/80. Continue with lisinopril 10 mg daily. Reinforced importance of following a low sodium diet, getting regular exercise, and lowering stress levels. (5) Hyperlipidemia: Code(s): E78.5 - Hyperlipidemia, unspecified Category: Medical Qualifiers: Hyperlipidemia type: pure hypercholesterolemia Qualified Code(s): E78.00 - Pure hypercholesterolemia, unspecified Plan: Fasting lipids are within normal limits, continue with rosuvastatin 5 mg daily. Repeat fasting lipids in May 2025 Orders: Orders Alanine Aminotransferase 05/15/25 E11.65 - Type 2 diabetes mellitus with hyperglycemia, E78.00 - Pure hypercholesterolemia, unspecified, F33.9 - Major depressive disorder, recurrent, unspecified, I10 - Essential (primary) hypertension, Z86.39 - Personal history of other endocrine, nutritional and metabolic disease Microalbumin, Random (w Creat) 05/15/25 E11.65 - Type 2 diabetes mellitus with hyperglycemia, E78.00 - Pure hypercholesterolemia, unspecified, F33.9 - Major depressive disorder, recurrent, unspecified, I10 - Essential (primary) hypertension, Z86.39 - Personal history of other endocrine, nutritional and metabolic disease Hemoglobin A1c 05/15/25.65 - Type 2 diabetes mellitus with hyperglycemia, E78.00 - Pure hypercholesterolemia, unspecified, F33.9 - Major depressive disorder, recurrent, unspecified, I10 - Essential (primary) hypertension, Z86.39 - Personal history of other endocrine, nutritional and metabolic disease Vitamin D 25-OH Total 05/15/25 E11.65 - Type 2 diabetes mellitus with hyperglycemia, E78.00 - Pure hypercholesterolemia, unspecified, F33.9 - Major depressive disorder, recurrent, unspecified, I10 - Essential (primary) hypertension, Z86.39 - Personal history of other endocrine, nutritional and metabolic disease XR hips VI min 3V Today M25.551 - Pain in right hip, M25.552 - Pain in left hip Aspartate Amino Transferase 05/15/25.65 - Type 2 diabetes mellitus with hyperglycemia, E78.00 - Pure hypercholesterolemia, unspecified, F33.9 - Major depressive disorder, recurrent, unspecified, I10 - Essential (primary) hypertension, Z86.39 - Personal history of other endocrine, nutritional and metabolic disease Basic Metabolic Panel Fasting 05/15/25.65 - Type 2 diabetes mellitus with hyperglycemia, E78.00 - Pure hypercholesterolemia, unspecified, F33.9 - Major depressive disorder, recurrent, unspecified, I10 - Essential (primary) hypertension, Z86.39 - Personal history of other endocrine, nutritional and metabolic disease Lipid Panel 05/15/25.65 - Type 2 diabetes mellitus with hyperglycemia, E78.00 - Pure hypercholesterolemia, unspecified, F33.9 - Major depressive disorder, recurrent, unspecified, I10 - Essential (primary) hypertension, Z86.39 - Personal history of other endocrine, nutritional and metabolic disease Referrals Endocrinology Referral .65 - Type 2 diabetes mellitus with hyperglycemia Medications: New pioglitazone 30 mg PO DAILY 30 tabs 5RF Refilled famotidine 40 mg PO DAILY 30 tabs 2RF paroxetine HCl 30 mg PO QAM 90 tabs 4RF
== END 2025-01-06 13:44 | disposition home or self-care (01) ==
LOC: HO.HMCC 11:47
PROVIDERS: PCP Internal Medicine; Visit Provider Internal Medicine
DX: E11.65 Type 2 diabetes mellitus with hyperglycemia (principal); M25.551 Pain in right hip; M25.552 Pain in left hip; F33.9 Major depressive disorder, recurrent, unspecified; I10 Essential (primary) hypertension; E78.00 Pure hypercholesterolemia, unspecified

== ENCOUNTER 2025-01-06 11:46 | Outpatient (REF) | payer MEDICARE, SELFPAY ==
--- NOTE | ~2025-01-06 | XR_ITS ---
EXAMINATION: XR BILATERAL HIPS CLINICAL INFORMATION: M25.551 - Pain in right hip COMPARISON: None available. TECHNIQUE: AP and frog-leg views of each hip were obtained. FINDINGS: Right: Bone alignment is normal. No fracture or dislocation. There is mild to moderate right hip osteoarthritis with joint space narrowing and osteophyte formation. There is proliferative bone reaction/ enthesopathy adjacent to the right greater trochanter and iliac crest. There is faint soft tissue calcification or ossification adjacent to the right greater trochanter. Left: Bone alignment is normal. No fracture or dislocation. Moderate left hip osteoarthritis with joint space narrowing and osteophyte formation. Soft tissues are unremarkable. XR/XR hips VI min 3V IMPRESSION: Bilateral hip osteoarthritis, left greater than right. Proliferative bone reaction/ enthesopathy adjacent to the right greater trochanter and iliac crest. Electronically signed by: Kayla Drake MD 01/06/2025 04:09 PM EDT
== END 2025-01-06 11:47 | disposition home or self-care (01) ==
LOC: HO.XRAY 11:46
PROVIDERS: PCP Internal Medicine; Visit Provider Internal Medicine
DX: M25.551 Pain in right hip (principal); M25.552 Pain in left hip; E11.65 Type 2 diabetes mellitus with hyperglycemia; F33.9 Major depressive disorder, recurrent, unspecified; I10 Essential (primary) hypertension; E78.00 Pure hypercholesterolemia, unspecified; Z79.84 Long term (current) use of oral hypoglycemic drugs; Z86.39 Personal history of other endocrine, nutritional and metabolic disease
CPT/HCPCS: 73522; 96127; 99212

== ENCOUNTER → 2025-01-06 15:42 | Outpatient (BNV) | payer MEDICARE, SELFPAY | PROVIDERS: PCP Internal Medicine; Visit Provider Radiology Diagnostic Radiology | DX: M16.0 Bilateral primary osteoarthritis of hip (principal) | CPT/HCPCS: 73522 ==

== ENCOUNTER 2025-01-09 18:03 | Emergency (ER) | payer MEDICARE, SELFPAY ==
[2025-01-09 18:14] VITALS: BP 153/73; PULSE 81; RESP 18; TEMP 36.4; O2SAT 94; BMI 39.9
--- NOTE | 2025-01-09 18:15 | ED.GENADULT ---
HPI - General Adult General Chief complaint: General Medical Stated complaint: diabetes/ sugar @ 285 Time Seen by Provider: 01/09/25 21:51 Related Data Home Medications ?Medication ?Instructions ?Recorded ?Confirmed acetaminophen 325 mg capsule 325 mg PO QID PRN 10/17/20 10/05/24 (Tylenol) Previous Rx's ?Medication ?Instructions ?Recorded blood-glucose meter (OneTouch #1 ea 05/08/21 Verio Meter) lisinopril 10 mg tablet 10 mg PO DAILY #90 tabs 09/04/24 rosuvastatin 5 mg tablet 5 mg PO DAILY #90 tabs 09/04/24 gabapentin 100 mg capsule 100 mg PO BID 30 days #60 caps 11/01/24 metformin 1,000 mg tablet 1,000 mg PO BID #180 tabs 01/01/25 famotidine 40 mg tablet 40 mg PO DAILY #30 tabs 01/06/25 paroxetine HCl 30 mg tablet 30 mg PO QAM #90 tabs 01/06/25 pioglitazone 30 mg tablet 30 mg PO DAILY #30 tabs 01/06/25 blood sugar diagnostic (OneTouch #100 ea 01/07/25 Verio test strips) lancets 33 gauge #100 ea 01/07/25 nitrofurantoin 100 mg PO BID 7 days #14 caps 01/09/25 monohydrate/macrocrystals 100 mg capsule (Macrobid) Allergies Allergy/AdvReac Type Severity Reaction Status Date / Time amoxicillin (AMOXICILLIN) Allergy Intermediate RASH Verified 01/09/25 18:17 Penicillins (PENICILLINS) Allergy Intermediate RASH Verified 01/09/25 18:17 Sulfa (Sulfonamide Allergy Intermediate RASH, hives Verified 01/09/25 18:17 Antibiotics) (SULFA (SULFONAMIDE ANTIBIOTICS)) sulfamethoxazole (From Allergy Intermediate RASH Verified 01/09/25 18:17 BACTRIM) dapagliflozin (From Farxiga) AdvReac rash and Verified 01/09/25 18:17 diarrhea empagliflozin (From AdvReac Nausea Verified 01/09/25 18:17 Jardiance) [facility] Past Medical History Medical History HTN (hypertension) History of vitamin D deficiency History of herpes zoster Morbid obesity GERD (gastroesophageal reflux disease) Influenza vaccination declined Diabetes mellitus with hyperglycemia PHN (postherpetic neuralgia) Internal and external hemorrhoids without complication Gastritis Varicose vein of leg IBS (irritable bowel syndrome) Carpal tunnel syndrome of left wrist Osteoarthritis Hyperlipidemia Surgical History History of carpal tunnel surgery Tubal ligation status H/O colonoscopy Family History Family History Father Esophageal cancer Alcoholism Mother Diabetes mellitus HTN (hypertension) CVA (cerebral vascular accident) Hyperlipidemia Sister Diabetes mellitus Social History Social History Household Members: Family Housing: House Alcohol intake: never Comment: sleeping Patient Tobacco Use Status: Never used Tobacco Smoked in Last 30 Days: No e-Cigarette/Vaping Use: Never Used Second Hand Smoke Exposure: No Use of substances other than those prescribed or required for medical reasons: No Any prior treatment program specific to substance use: No Advance Directives: No Advance Directives Information Provided: Yes Do you have a plan to hurt others: No Plan service: No Current occupational status: employed 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 Full HPI, ROS and PE to be performed by primary ED provider. 69 yo F w/pmhx DM presenting to the ED c/o elevated glucose at home to 275. States her A1c was elevated at last appointment - does not regularly check sugar at home has been under a lot of stress but does reports medication compliance PE: NAD, nontoxic appearing Plan: Labs, UA Medical Decision Making Lab Data 01/09/25 19:22 01/09/25 19:21 Labs: Lab Results 01/09/25 01/09/25 01/09/25 Range/Units 19:21 19:22 19:29 WBC 9.7 (4.8-10.8) X10*3/uL RBC 5.31 (4.20-5.50) X10*6/uL Hgb 15.3 (12.0-16.0) g/dl Hct 48.0 H (37.0-47.0) % MCV 90.4 (80.0-98.0) fL MCH 28.8 (27.0-33.0) pg MCHC 31.9 (31.0-35.0) g/dl RDW 13.8 (11.0-16.0) % Plt Count 294 (160-400) X10*3/uL MPV 9.4 (9.4-12.3) fL Immature Gran % (Auto) 0.3 (0.0-0.4) % Neut % (Auto) 51.8 (45-73) % Lymph % (Auto) 38.8 (20-40) % Mobile % (Auto) 7.6 (2-11) % Eos % (Auto) 1.3 (0-4) % Baso % (Auto) 0.2 (0-2) % Lymph # (Auto) 3.7 (1.2-4.9) X10*3/uL [place] # (Auto) 0.7 (0.1-1.2) X10*3/uL Eos # (Auto) 0.1 (0.0-0.4) X10*3/uL Baso # (Auto) 0.0 (0.0-0.2) X10*3/uL Abs Immat Gran (auto) 0.03 (0.00-0.03) X10*3/uL Absolute Neuts (auto) 5.0 (2.0-8.3) x10*3/uL Absolute Nucleated RBC 0.000 (0.0-0.012) X10*3/uL Nucleated RBC % (auto) 0.0 (0.0-0.2) /100WBC VBG pH 7.44 H (7.32-7.43) VBG pCO2 36 mmHg VBG pO2 86 mmHg VBG HCO3 25 (22-26) mmol/L VBG O2 Saturation 96.0 % VBG Base Excess 1.3 mmol/L Sodium 137 (135-145) mmol/L Potassium 4.4 (3.3-5.1) mmol/L Chloride 103 (96-108) mmol/L Carbon Dioxide 25 (22-29) mmol/L Anion Gap 13 (12-20) BUN 23 H (9-16) mg/dL Creatinine 0.66 (0.5-1.4) mg/dL Estim Creat Clear Calc 91.7 Estimated GFR > 60 POC Glucose (60-115) mg/dL Random Glucose 329 H (60-115) mg/dL Calcium 9.8 (8.4-10.2) mg/dL Magnesium 1.6 (1.6-2.6) mg/dL Total Bilirubin 0.7 (0.0-1.0) mg/dL Direct Bilirubin 0.3 (0.0-0.5) mg/dL AST 35 H (5-31) U/L ALT 24 (0-31) U/L Alkaline Phosphatase 98 (39-117) U/L Total Protein 7.7 (6.5-8.0) g/dL Albumin 4.4 (3.5-5.0) g/dL Beta-Hydroxybutyrate 0.22 (0.02-0.27) mmol/L Urine Color Urine Appearance Urine pH (5.0-9.0) Ur Specific [place] (1.005-1.025) Urine Protein (Neg-Trace) mg/dL Urine Glucose (UA) (Negative) mg/dL Urine Ketones (Negative) mg/dL Urine Blood (Negative) Urine Nitrite (Negative) Ur Leukocyte Esterase (Negative) Urine RBC (0-2) /HPF Urine WBC (0-5) /HPF Ur Squamous Epith Cells (0-2) /HPF Urine Bacteria (None Seen) Hyaline Casts (0-2) /LPF 01/09/25 01/09/25 Range/Units 20:53 20:56 WBC (4.8-10.8) X10*3/uL RBC (4.20-5.50) X10*6/uL Hgb (12.0-16.0) g/dl Hct (37.0-47.0) % MCV (80.0-98.0) fL MCH (27.0-33.0) pg MCHC (31.0-35.0) g/dl RDW (11.0-16.0) % Plt Count (160-400) X10*3/uL MPV (9.4-12.3) fL Immature Gran % (Auto) (0.0-0.4) % Neut % (Auto) (45-73) % Lymph % (Auto) (20-40) % Mobile % (Auto) (2-11) % Eos % (Auto) (0-4) % Baso % (Auto) (0-2) % Lymph # (Auto) (1.2-4.9) X10*3/uL [place] # (Auto) (0.1-1.2) X10*3/uL Eos # (Auto) (0.0-0.4) X10*3/uL Baso # (Auto) (0.0-0.2) X10*3/uL Abs Immat Gran (auto) (0.00-0.03) X10*3/uL Absolute Neuts (auto) (2.0-8.3) x10*3/uL Absolute Nucleated RBC (0.0-0.012) X10*3/uL Nucleated RBC % (auto) (0.0-0.2) /100WBC VBG pH (7.32-7.43) VBG pCO2 mmHg VBG pO2 mmHg VBG HCO3 (22-26) mmol/L VBG O2 Saturation % VBG Base Excess mmol/L Sodium (135-145) mmol/L Potassium (3.3-5.1) mmol/L Chloride (96-108) mmol/L Carbon Dioxide (22-29) mmol/L Anion Gap (12-20) BUN (9-16) mg/dL Creatinine (0.5-1.4) mg/dL Estim Creat Clear Calc Estimated GFR POC Glucose 278 H (60-115) mg/dL Random Glucose (60-115) mg/dL Calcium (8.4-10.2) mg/dL Magnesium (1.6-2.6) mg/dL Total Bilirubin (0.0-1.0) mg/dL Direct Bilirubin (0.0-0.5) mg/dL AST (5-31) U/L ALT (0-31) U/L Alkaline Phosphatase (39-117) U/L Total Protein (6.5-8.0) g/dL Albumin (3.5-5.0) g/dL Beta-Hydroxybutyrate (0.02-0.27) mmol/L Urine Color Yellow Urine Appearance Clear Urine pH 5.0 (5.0-9.0) Ur Specific [place] 1.025 (1.005-1.025) Urine Protein Negative (Neg-Trace) mg/dL Urine Glucose (UA) >=1000 H (Negative) mg/dL Urine Ketones Trace (Negative) mg/dL Urine Blood Trace H (Negative) Urine Nitrite Negative (Negative) Ur Leukocyte Esterase Moderate (2+) H (Negative) Urine RBC 0-2 (0-2) /HPF Urine WBC >50 H (0-5) /HPF Ur Squamous Epith Cells 11-20 (0-2) /HPF Urine Bacteria 1+ (None Seen) Hyaline Casts 0-2 (0-2) /LPF Discharge Plan Discharge Clinical Impression: Diabetes, Urinary tract infection Patient Disposition: Home, Self-Care Instructions: Urinary Tract Infection in Older Adults (ED), Diabetes and Nutrition (ED) Prescriptions: New nitrofurantoin monohyd/m-cryst [Macrobid] 100 mg capsule 100 mg PO BID 7 Days Qty: 14 0RF Rx Instructions: must administer with a meal/food No Action (DME) blood-glucose meter [OneTouch Verio Meter] Misc See Rx Instructions .Route Qty: 1 0RF Rx Instructions: use to test blood sugar lisinopril 10 mg tablet 10 mg PO DAILY Qty: 90 1RF rosuvastatin 5 mg tablet 5 mg PO DAILY Qty: 90 1RF gabapentin 100 mg capsule 100 mg PO BID 30 Days Qty: 60 2RF metformin 1,000 mg tablet 1,000 mg PO BID Qty: 180 1RF (DME) OneTouch Verio test strips Strip See Rx Instructions .Route Qty: 100 3RF Rx Instructions: test blood sugar daily (DME) lancets 33 gauge misc See Rx Instructions .Route Qty: 100 3RF Rx Instructions: Test blood sugar daily acetaminophen [Tylenol] 325 mg capsule 325 mg PO QID PRN famotidine 40 mg tablet 40 mg PO DAILY Qty: 30 2RF paroxetine HCl 30 mg tablet 30 mg PO QAM Qty: 90 4RF pioglitazone 30 mg tablet 30 mg PO DAILY Qty: 30 5RF Referrals: Viviana Randolph MD [Primary Care Provider, Internal Medicine] - 01/13/25 Print Language: Urdu
[2025-01-09 19:28] LABS: MANUAL DIFF FLAG NO
[2025-01-09 19:30] LABS: Hematocrit 48.0 % (37.0-47.0); Hemoglobin 15.3 g/dl (12.0-16.0); Imm Gran Abs Auto 0.03 X10*3/uL (0.00-0.03); Imm Gran Pct Auto 0.3 % (0.0-0.4); Lymphocytes Absolute Auto 3.7 X10*3/uL (1.2-4.9); Mean Corpuscular HGB Conc 31.9 g/dl (31.0-35.0); Mean Corpuscular Hemoglobin 28.8 pg (27.0-33.0); Mean Corpuscular Volume 90.4 fL (80.0-98.0); NRBC Abs Auto 0.000 X10*3/uL (0.0-0.012); NRBC Pct Auto 0.0 /100WBC (0.0-0.2); Platelet Count 294 X10*3/uL (160-400); Red Blood Count 5.31 X10*6/uL (4.20-5.50); White Blood Count 9.7 X10*3/uL (4.8-10.8)
[2025-01-09 19:31] LABS: Venous Blood Gas Refer to POC result
[2025-01-09 19:32] LABS: VBG HCO3 25 mmol/L (22-26); VBG O2 % Saturation 96.0 %
[2025-01-09 19:43] LABS: Alanine Aminotransferase 24 U/L (0-31); Albumin Level 4.4 g/dL (3.5-5.0); Alkaline Phosphatase 98 U/L (39-117); Anion Gap 13 (12-20); Aspartate Amino Transferase 35 U/L (5-31); Blood Urea Nitrogen 23 mg/dL (9-16); Calcium 9.8 mg/dL (8.4-10.2); Carbon Dioxide 25 mmol/L (22-29); Chloride 103 mmol/L (96-108); Creatinine Clr Calc Pharmacy 91.7; Estimated Glomerular Filt Rate > 60; Magnesium 1.6 mg/dL (1.6-2.6); Potassium 4.4 mmol/L (3.3-5.1); Sodium 137 mmol/L (135-145); Total Protein 7.7 g/dL (6.5-8.0)
[2025-01-09 21:01] LABS: Glucose, Whole Blood 278 mg/dL (60-115)
[2025-01-09 21:20] LABS: Appearance Urine Clear; Glucose Urine UA >=1000 mg/dL (Negative); PH 5.0 (5.0-9.0); Specific Gravity - Urine 1.025 (1.005-1.025); UMIC TRIGGER UACC YES
[2025-01-09 21:23] VITALS: BP 125/54; PULSE 62; RESP 18; TEMP 36.7; O2SAT 95
[2025-01-09 21:25] LABS: UACC Culture Trigger YES
--- NOTE | 2025-01-09 23:36 | ED.GENADULT ---
HPI - General Adult General Chief complaint: General Medical Stated complaint: diabetes/ sugar @ 285 Time Seen by Provider: 01/09/25 21:51 History of Present Illness HPI narrative: Patient is a 69-year-old female presents today with having history of diabetes. Patient is has a long-term A1c of 12. Just got new test strips. Patient's sugars in the 200s range. She was a little concerned and came to the ER. There is no chest pain there is no diaphoresis. She been keeping track of her sugar it has been between 203 100 she said this is a little higher than normal for her. There is no fever no chills no chest pain or shortness breath no diaphoresis. There is no urinary symptoms. But patient is generally feels a little weak. Feels that she is thirsty all the time. Related Data Home Medications ?Medication ?Instructions ?Recorded ?Confirmed acetaminophen 325 mg capsule 325 mg PO QID PRN 10/17/20 10/05/24 (Tylenol) Previous Rx's ?Medication ?Instructions ?Recorded blood-glucose meter (OneTouch #1 ea 05/08/21 Verio Meter) lisinopril 10 mg tablet 10 mg PO DAILY #90 tabs 09/04/24 rosuvastatin 5 mg tablet 5 mg PO DAILY #90 tabs 09/04/24 gabapentin 100 mg capsule 100 mg PO BID 30 days #60 caps 11/01/24 metformin 1,000 mg tablet 1,000 mg PO BID #180 tabs 01/01/25 famotidine 40 mg tablet 40 mg PO DAILY #30 tabs 01/06/25 paroxetine HCl 30 mg tablet 30 mg PO QAM #90 tabs 01/06/25 pioglitazone 30 mg tablet 30 mg PO DAILY #30 tabs 01/06/25 blood sugar diagnostic (OneTouch #100 ea 01/07/25 Verio test strips) lancets 33 gauge #100 ea 01/07/25 nitrofurantoin 100 mg PO BID 7 days #14 caps 01/09/25 monohydrate/macrocrystals 100 mg capsule (Macrobid) Allergies Allergy/AdvReac Type Severity Reaction Status Date / Time amoxicillin (AMOXICILLIN) Allergy Intermediate RASH Verified 01/09/25 18:17 Penicillins (PENICILLINS) Allergy Intermediate RASH Verified 01/09/25 18:17 Sulfa (Sulfonamide Allergy Intermediate RASH, hives Verified 01/09/25 18:17 Antibiotics) (SULFA (SULFONAMIDE ANTIBIOTICS)) sulfamethoxazole (From Allergy Intermediate RASH Verified 01/09/25 18:17 BACTRIM) dapagliflozin (From Farxiga) AdvReac rash and Verified 01/09/25 18:17 diarrhea empagliflozin (From AdvReac Nausea Verified 01/09/25 18:17 Jardiance) Review of Systems Review of Systems: No chest pain or shortness breath no nausea no vomiting Yes all other systems are reviewed and are negative [facility] Past Medical History Attestation statement: The following information was validated with the patient. Medical History HTN (hypertension) History of vitamin D deficiency History of herpes zoster Morbid obesity GERD (gastroesophageal reflux disease) Influenza vaccination declined Diabetes mellitus with hyperglycemia PHN (postherpetic neuralgia) Internal and external hemorrhoids without complication Gastritis Varicose vein of leg IBS (irritable bowel syndrome) Carpal tunnel syndrome of left wrist Osteoarthritis Hyperlipidemia Surgical History History of carpal tunnel surgery Tubal ligation status H/O colonoscopy Family History Family History Father Esophageal cancer Alcoholism Mother Diabetes mellitus HTN (hypertension) CVA (cerebral vascular accident) Hyperlipidemia Sister Diabetes mellitus Social History Social History Household Members: Family Housing: House Alcohol intake: never Comment: sleeping Patient Tobacco Use Status: Never used Tobacco Smoked in Last 30 Days: No e-Cigarette/Vaping Use: Never Used Second Hand Smoke Exposure: No Use of substances other than those prescribed or required for medical reasons: No Any prior treatment program specific to substance use: No Advance Directives: No Advance Directives Information Provided: Yes Do you have a plan to hurt others: No Plan service: No Current occupational status: employed 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 Oriented X3. No acute distress. Eyes: Pupils equal, round and reactive to light. ENT: Pharynx normal. Neck: Normal inspection. Neck supple. No lymph nodes noted. No crepitus CVS: Normal heart rate and rhythm. Pulses normal. Normal S1 and S2 Respiratory: No respiratory distress. Breath sounds normal. No Wheezing. No rales Abdomen: Soft and nontender. No rigidity. No distention. good BS x4 Skin: Skin warm and dry. Normal skin color. Normal skin turgor. Extremities: No lower extremity edema. Neurovascular intact to all extremities. No Lacerations. No Rash Neuro: Oriented X 3. No motor deficit. No sensory deficit. Moving all extermities. No slurred speech Vital Signs: Vital Signs - 24 hr 01/09/25 18:14 01/09/25 21:23 Temperature 97.6 F 98.0 F Pulse Rate 81 62 Respiratory Rate 18 18 Blood Pressure 153/73 H 125/54 L Pulse Oximetry 94 95 Oxygen Delivery Method Room Air Room Air BMI result Body Mass Index 39.9 Medical Decision Making Medical Decision Making [facility] Narrative: Well-appearing no acute distress. Patient's urine is grossly infected. White count is normal. 9.7. No significant shift. Patient's VBG showed a pH of 7.44. PCO2 36. PaO2 of 86. Electrolytes shows an sugar 329. But there is no anion gap bicarb is normal 25. Will start patient on a dose of Macrobid question infection causing patient's sugar to be elevated. Patient has multitude of allergies including to amoxicillin penicillin sulfa. Currently in stable condition will discharge home. Differential Diagnosis Differential Diagnoses: The differential diagnosis associated with the presentation includes Hyperglycemia, UTI, DKA Admission/Observation Consideration of admission/observation: Escalation of care including admission/observation considered Lab Data [facility] Lab Attestation statement: I reviewed the patient's lab results. 01/09/25 19:22 01/09/25 19:21 Labs: Lab Results 01/09/25 01/09/25 01/09/25 Range/Units 19:21 19:22 19:29 WBC 9.7 (4.8-10.8) X10*3/uL RBC 5.31 (4.20-5.50) X10*6/uL Hgb 15.3 (12.0-16.0) g/dl Hct 48.0 H (37.0-47.0) % MCV 90.4 (80.0-98.0) fL MCH 28.8 (27.0-33.0) pg MCHC 31.9 (31.0-35.0) g/dl RDW 13.8 (11.0-16.0) % Plt Count 294 (160-400) X10*3/uL MPV 9.4 (9.4-12.3) fL Immature Gran % (Auto) 0.3 (0.0-0.4) % Neut % (Auto) 51.8 (45-73) % Lymph % (Auto) 38.8 (20-40) % Rains % (Auto) 7.6 (2-11) % Eos % (Auto) 1.3 (0-4) % Baso % (Auto) 0.2 (0-2) % Lymph # (Auto) 3.7 (1.2-4.9) X10*3/uL Rains # (Auto) 0.7 (0.1-1.2) X10*3/uL Eos # (Auto) 0.1 (0.0-0.4) X10*3/uL Baso # (Auto) 0.0 (0.0-0.2) X10*3/uL Abs Immat Gran (auto) 0.03 (0.00-0.03) X10*3/uL Absolute Neuts (auto) 5.0 (2.0-8.3) x10*3/uL Absolute Nucleated RBC 0.000 (0.0-0.012) X10*3/uL Nucleated RBC % (auto) 0.0 (0.0-0.2) /100WBC VBG pH 7.44 H (7.32-7.43) VBG pCO2 36 mmHg VBG pO2 86 mmHg VBG HCO3 25 (22-26) mmol/L VBG O2 Saturation 96.0 % VBG Base Excess 1.3 mmol/L Sodium 137 (135-145) mmol/L Potassium 4.4 (3.3-5.1) mmol/L Chloride 103 (96-108) mmol/L Carbon Dioxide 25 (22-29) mmol/L Anion Gap 13 (12-20) BUN 23 H (9-16) mg/dL Creatinine 0.66 (0.5-1.4) mg/dL Estim Creat Clear Calc 91.7 Estimated GFR > 60 POC Glucose (60-115) mg/dL Random Glucose 329 H (60-115) mg/dL Calcium 9.8 (8.4-10.2) mg/dL Magnesium 1.6 (1.6-2.6) mg/dL Total Bilirubin 0.7 (0.0-1.0) mg/dL Direct Bilirubin 0.3 (0.0-0.5) mg/dL AST 35 H (5-31) U/L ALT 24 (0-31) U/L Alkaline Phosphatase 98 (39-117) U/L Total Protein 7.7 (6.5-8.0) g/dL Albumin 4.4 (3.5-5.0) g/dL Beta-Hydroxybutyrate 0.22 (0.02-0.27) mmol/L Urine Color Urine Appearance Urine pH (5.0-9.0) Ur Specific [place] (1.005-1.025) Urine Protein (Neg-Trace) mg/dL Urine Glucose (UA) (Negative) mg/dL Urine Ketones (Negative) mg/dL Urine Blood (Negative) Urine Nitrite (Negative) Ur Leukocyte Esterase (Negative) Urine RBC (0-2) /HPF Urine WBC (0-5) /HPF Ur Squamous Epith Cells (0-2) /HPF Urine Bacteria (None Seen) Hyaline Casts (0-2) /LPF 01/09/25 01/09/25 Range/Units 20:53 20:56 WBC (4.8-10.8) X10*3/uL RBC (4.20-5.50) X10*6/uL Hgb (12.0-16.0) g/dl Hct (37.0-47.0) % MCV (80.0-98.0) fL MCH (27.0-33.0) pg MCHC (31.0-35.0) g/dl RDW (11.0-16.0) % Plt Count (160-400) X10*3/uL MPV (9.4-12.3) fL Immature Gran % (Auto) (0.0-0.4) % Neut % (Auto) (45-73) % Lymph % (Auto) (20-40) % Rains % (Auto) (2-11) % Eos % (Auto) (0-4) % Baso % (Auto) (0-2) % Lymph # (Auto) (1.2-4.9) X10*3/uL Rains # (Auto) (0.1-1.2) X10*3/uL Eos # (Auto) (0.0-0.4) X10*3/uL Baso # (Auto) (0.0-0.2) X10*3/uL Abs Immat Gran (auto) (0.00-0.03) X10*3/uL Absolute Neuts (auto) (2.0-8.3) x10*3/uL Absolute Nucleated RBC (0.0-0.012) X10*3/uL Nucleated RBC % (auto) (0.0-0.2) /100WBC VBG pH (7.32-7.43) VBG pCO2 mmHg VBG pO2 mmHg VBG HCO3 (22-26) mmol/L VBG O2 Saturation % VBG Base Excess mmol/L Sodium (135-145) mmol/L Potassium (3.3-5.1) mmol/L Chloride (96-108) mmol/L Carbon Dioxide (22-29) mmol/L Anion Gap (12-20) BUN (9-16) mg/dL Creatinine (0.5-1.4) mg/dL Estim Creat Clear Calc Estimated GFR POC Glucose 278 H (60-115) mg/dL Random Glucose (60-115) mg/dL Calcium (8.4-10.2) mg/dL Magnesium (1.6-2.6) mg/dL Total Bilirubin (0.0-1.0) mg/dL Direct Bilirubin (0.0-0.5) mg/dL AST (5-31) U/L ALT (0-31) U/L Alkaline Phosphatase (39-117) U/L Total Protein (6.5-8.0) g/dL Albumin (3.5-5.0) g/dL Beta-Hydroxybutyrate (0.02-0.27) mmol/L Urine Color Yellow Urine Appearance Clear Urine pH 5.0 (5.0-9.0) Ur Specific [place] 1.025 (1.005-1.025) Urine Protein Negative (Neg-Trace) mg/dL Urine Glucose (UA) >=1000 H (Negative) mg/dL Urine Ketones Trace (Negative) mg/dL Urine Blood Trace H (Negative) Urine Nitrite Negative (Negative) Ur Leukocyte Esterase Moderate (2+) H (Negative) Urine RBC 0-2 (0-2) /HPF Urine WBC >50 H (0-5) /HPF Ur Squamous Epith Cells 11-20 (0-2) /HPF Urine Bacteria 1+ (None Seen) Hyaline Casts 0-2 (0-2) /LPF External Record Review External record reviewed: Outpatient record Chronic Conditions Patient?s care impacted by: Diabetes and Hypertension Social Determinants Patient?s care significantly limited by Social Determinants of Health including: Problems related to primary support group and Unemployment Discharge Plan Discharge Clinical Impression: Diabetes, Urinary tract infection Patient Disposition: Home, Self-Care Instructions: Urinary Tract Infection in Older Adults (ED), Diabetes and Nutrition (ED) Prescriptions: New nitrofurantoin monohyd/m-cryst [Macrobid] 100 mg capsule 100 mg PO BID 7 Days Qty: 14 0RF Rx Instructions: must administer with a meal/food No Action (DME) blood-glucose meter [OneTouch Verio Meter] Misc See Rx Instructions .Route Qty: 1 0RF Rx Instructions: use to test blood sugar lisinopril 10 mg tablet 10 mg PO DAILY Qty: 90 1RF rosuvastatin 5 mg tablet 5 mg PO DAILY Qty: 90 1RF gabapentin 100 mg capsule 100 mg PO BID 30 Days Qty: 60 2RF metformin 1,000 mg tablet 1,000 mg PO BID Qty: 180 1RF (DME) OneTouch Verio test strips Strip See Rx Instructions .Route Qty: 100 3RF Rx Instructions: test blood sugar daily (DME) lancets 33 gauge misc See Rx Instructions .Route Qty: 100 3RF Rx Instructions: Test blood sugar daily acetaminophen [Tylenol] 325 mg capsule 325 mg PO QID PRN famotidine 40 mg tablet 40 mg PO DAILY Qty: 30 2RF paroxetine HCl 30 mg tablet 30 mg PO QAM Qty: 90 4RF pioglitazone 30 mg tablet 30 mg PO DAILY Qty: 30 5RF Referrals: Viviana Randolph MD [Primary Care Provider, Internal Medicine] - 01/13/25 Print Language: Japanese
[2025-01-09 23:46] VITALS: BP 140/55; PULSE 62; RESP 18; TEMP 37.1; O2SAT 95
[2025-01-09 23:55] VITALS: BP 140/55; PULSE 62; RESP 18; TEMP 37.1; O2SAT 95
== END 2025-01-09 23:55 | disposition home or self-care (01) ==
PROVIDERS: Physician Assistant; Emergency Provider Emergency Medicine Emergency Medical Services; PCP Internal Medicine
DX: E11.9 Type 2 diabetes mellitus without complications (principal); N39.0 Urinary tract infection, site not specified; I10 Essential (primary) hypertension; K21.9 Gastro-esophageal reflux disease without esophagitis
CPT/HCPCS: 36415; 80048; 80076; 81001; 82010; 82803; 82947; 83735; 85025; 87086; 99283; 99284

== ENCOUNTER 2025-01-12 15:45 | Outpatient (AMB) | payer MEDICARE, SELFPAY ==
[2025-01-12 16:00] VITALS: BP 108/60; PULSE 74; RESP 17; TEMP 36.7; O2SAT 95; BMI 39.7
--- NOTE | 2025-01-12 16:00 | A.OFFPC_ITS ---
Vital Signs 01/12/25 16:00 Height 5 ft 3 in Weight 224 lb BMI 39.7 BP 108/60 Blood Pressure Location Rt brachial Position Sitting Respiration 17 Pulse 74 Pulse Source Pulse Oximeter Temp 98.1 F Temp Source Oral Pulse Oximetry (%) 95 Oxygen Delivery Method Room Air Intake Visit Reasons: ER [facility] f/u UTI and elevated b/s Intake Note: Pt is here today for her f/u [facility] UTI and elevated b/s Allergies amoxicillin (AMOXICILLIN) Allergy (Intermediate, Verified 01/17/25 20:45) RASH Penicillins (PENICILLINS) Allergy (Intermediate, Verified 01/17/25 20:45) RASH Sulfa (Sulfonamide Antibiotics) (SULFA (SULFONAMIDE ANTIBIOTICS)) Allergy (Intermediate, Verified 01/17/25 20:45) RASH, hives sulfamethoxazole (From BACTRIM) Allergy (Intermediate, Verified 01/17/25 20:45) RASH dapagliflozin (From Farxiga) Adverse Reaction (Verified 01/17/25 20:45) rash and diarrhea empagliflozin (From Jardiance) Adverse Reaction (Verified 01/17/25 20:45) Nausea nitrofurantoin (From Macrobid) Adverse Reaction (Verified 01/17/25 20:45) tachycardia Medication List - Last Reconciled 01/17/25 by Viviana Randolph MD acetaminophen (Tylenol) 325 mg PO QID PRN blood sugar diagnostic (OneTouch Verio test strips) test blood sugar daily blood-glucose meter (OneTouch Verio Meter) use to test blood sugar famotidine 40 mg PO DAILY gabapentin 100 mg PO BID 30 days lancets Test blood sugar daily lisinopril 10 mg PO DAILY metformin 1,000 mg PO BID naproxen sodium (Aleve) 220 mg PO BID PRN paroxetine HCl 30 mg PO QAM pioglitazone 30 mg PO DAILY rosuvastatin 5 mg PO DAILY Trulicity (dulaglutide) 0.75 mg (0.5 mL) subcut QWEEK NS Tobacco use date assessed: 01/12/25 Fall risk assessment: 1 Fall in past year Last assessed Fall Risk: 01/12/25 Dental Screening Dental Screen Date: 01/12/25 Did you have a dental visit in the last 12 months?: No Did you have a dental problem in the last 6 months where you did not have access to dental care?: No Was dental information given to patient?: Patient has dentist HPI ER C f/u UTI and elevated b/s HPI Details The patient is a 69-year-old female presenting for follow-up after recent ER visit where she was diagnosed to have urinary tract infection advanced marked elevation in her blood sugar levels. She was diagnosed with a urinary tract infection and prescribed Macrobid, but she never filled the prescription. She reports having taken one dose previously and experienced palpitations, diarrhea, and gas. The patient's history is significant for poorly controlled diabetes, with a recent hemoglobin A1c of 12.5, which reflects her average glucose over the last three months. Her blood sugars are currently in the 300s. Her current medications include Actos and metformin, which are not providing adequate glycemic control. Has repeatedly refused taking insulin . Approximately two years ago, the patient was on Trulicity, which she found effective and affordable at $47, but she discontinued it due to a subsequent la increase she could not afford. She has financial constraints, stating she cannot pay more than $100 for a medication. Has tried placing her on GLP 1 agonist but patient could not afford the co-pay. She also has been tried on Farxiga but stopped taking medication, states it gave her nausea and abdominal pain and would not affor high co-pay. [facility] Medical History HTN (hypertension) History of vitamin D deficiency History of herpes zoster Morbid obesity GERD (gastroesophageal reflux disease) Influenza vaccination declined Diabetes mellitus with hyperglycemia PHN (postherpetic neuralgia) Internal and external hemorrhoids without complication Gastritis Varicose vein of leg IBS (irritable bowel syndrome) Carpal tunnel syndrome of left wrist Osteoarthritis Hyperlipidemia Surgical History History of carpal tunnel surgery Tubal ligation status H/O colonoscopy Family History Father Esophageal cancer Alcoholism Mother Diabetes mellitus HTN (hypertension) CVA (cerebral vascular accident) Hyperlipidemia Sister Diabetes mellitus Social History Household Members: Family Housing: House Alcohol intake: never Comment: sleeping Patient Tobacco Use Status: Never used Tobacco e-Cigarette/Vaping Use: Never Used Second Hand Smoke Exposure: No service: No Current occupational status: employed 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 Depression Screening Interpretation: Negative Depression Screening Done: Yes Source: Developed by Drs. Grabiel Zelaya, Anabela Hayden, Jose Wright and colleagues, with an educational jossue from [employer]. Thrive Questionnaire Date Thrive assessed: 06/09/24 I am a: Patient What is your living situation today?: I have a place to live, but I am worried about losing it in the future Within the past 12 months, did the food you bought not last and you didn't have the money to get more?: Sometimes True Within the past 12 months, did you worry whether your food would run out before you got money to buy more?: Often true Do you have trouble paying for medicines?: I choose not to answer this question Do you have trouble getting transportation to medical appointments?: No Do you have trouble paying your heating and electricity bill?: No Do you have trouble taking care of your child, family member or friend?: No Do you have trouble with day-to-day activities such as bathing, preparing meals, shopping, managing finances, etc.?: No Are you currently unemployed and looking for a job?: I choose not to answer this question Are you interested in more education?: No Please select the resources that you would like help with: Food Currently or been in a relationship where the following occur: No concerns reported THRIVE Score: 3 DOMENICO-7 AMB Questionnaire DOMENICO-7 Date DOMENICO - 7 assessed: 06/09/24 Source: Developed by Drs. Grabiel Zelaya, Anabela Hayden, Jose Wright and colleagues, with an educational jossue from [employer]. Review of Systems Const Denies fever(s) and Reports malaise Eyes Details: Sees Dr. Abad, up-to-date with her diabetes retinopathy screening Reports requires corrective lenses ENT Reports dry mouth Card Denies chest pain, Denies dyspnea and Denies dyspnea on exertion Resp Denies cough, Denies dyspnea and Denies dyspnea on exertion GI Denies abdominal pain, Denies melena, Denies bloating, Denies hematochezia, Denies change in bowel habits, Reports heartburn (Takes famotidine, which has been helping) and Denies nausea Denies hematuria, Denies difficulty voiding, Reports nocturia, Denies dysuria, Reports urinary incontinence, Denies urinary hesitancy and Reports urinary urgency Musc Reports no additional complaints Skin/Breast Denies breast pain, Denies breast mass, Denies dry skin, Denies lesions and Denies rash Neuro Reports no additional complaints and Reports paresthesias (fom prior shingles outbreak) Psych Reports no additional complaints Endo Denies polyphagia, Reports polydipsia and Reports polyuria Lenny/Lymph Denies easy bleeding and Denies easy bruising Aller/Immun Reports seasonal rhinorrhea Physical exam (Primary Care) Vital Signs: Last Vital Signs Temp 98.1 F 01/12/25 16:00 Pulse 74 01/12/25 16:00 Resp 17 01/12/25 16:00 BP 108/60 01/12/25 16:00 Pulse Ox 95 01/12/25 16:00 Oxygen Delivery Method Room Air 01/12/25 16:00 BMI result Body Mass Index 39.7 Tobacco/Smoking Status: Tobacco use Status Tobacco use date assessed 01/12/25 01/12/25 16:14 Patient Tobacco Use Status Never used Tobacco 01/12/25 16:01 e-Cigarette/Vaping Use Never Used 01/12/25 16:01 Depression Screening Interpretation: Negative Thrive Assessment: Date of Thrive Assessment Date Thrive assessed 06/09/24 01/12/25 16:01 Currently or been in a relationship where the following occur: No concerns reported Const General: comfortable and no acute distress Nutritional Appearance: obese Orientation/consciousness: patient oriented x3 [facility] General nose exam: Normal external nose present Face and sinus: Yes face symmetric Mouth: Normal oral and palatal mucosa present Eyes General: appearance normal, both eyes and all related structures Neck Neck: Yes full ROM, Yes no lymphadenopathy and Yes supple Resp Effort & Inspection: normal respiratory effort and able to speak in complete sentences Auscultation: clear to auscultation bilaterally Cardio Rate: regular rate Rhythm: regular rhythm Heart sounds: S1 normal heart sound present and S2 normal heart sound present GI Inspection: Yes obesity Palpation (GI): Soft to palpation, nontender, no guarding and no masses Auscultation: normal bowel sounds General: Yes no CVA tenderness Back/Spine/Pelvis Back: no CVA tenderness Skin General skin exam: no rashes or lesions noted Neuro General: patient oriented x3, gait normal, Normal light touch and pain sensation and no focal motor deficits Extrem General: Yes no joint enlargement, Yes no calf tenderness and Yes normal gait Results AMB Urinalysis, Automated UA Leukoctes 0 Piyush/uL Last Edit by Celestina Mcmanus, ANA M on 01/12/25 16:09 UA Nitrite Negative Last Edit by Celestina Mcmanus, FARM EQUIPMENT SERVICE TECHNICIAN on 01/12/25 16:09 UA Urobilinogen 0.2 mg/dL Last Edit by Celestina Mcmanus, FARM EQUIPMENT SERVICE TECHNICIAN on 01/12/25 16:09 UA Protein 0 mg/dL Last Edit by Celestina Mcmanus, FARM EQUIPMENT SERVICE TECHNICIAN on 01/12/25 16:09 UA pH 6.0 Last Edit by Celestina Mcmanus, FARM EQUIPMENT SERVICE TECHNICIAN on 01/12/25 16:09 UA Blood 0 Wes/uL Last Edit by Celestina Mcmanus, FARM EQUIPMENT SERVICE TECHNICIAN on 01/12/25 16:09 UA Specific [place] 1.020 Last Edit by Celestina Mcmanus, FARM EQUIPMENT SERVICE TECHNICIAN on 01/12/25 16:09 UA Ketone Negative Last Edit by Celestina Mcmanus, ANA M on 01/12/25 16:09 UA Bilirubin 0 mg/dL Last Edit by Celestina Mcmanus, FARM EQUIPMENT SERVICE TECHNICIAN on 01/12/25 16:09 UA Glucose 1000 mg/dL Last Edit by Celestina Mcmanus, FARM EQUIPMENT SERVICE TECHNICIAN on 01/12/25 16:09 Results Reviewed Results Reviewed: Laboratory Last Values Urine pH (Auto) 6.0 01/12/25 16:05 Specific [place] (Auto) 1.020 01/12/25 16:05 Urine Protein (Auto) 0 mg/dL 01/12/25 16:05 Glucose (UA)(Auto) 1000 mg/dL 01/12/25 16:05 Urine Ketones (Auto) Negative 01/12/25 16:05 Urine Blood (Auto) 0 Wes/uL 01/12/25 16:05 Urine Nitrite (Auto) Negative 01/12/25 16:05 Urine Bilirubin (Auto) 0 mg/dL 01/12/25 16:05 Urine Urobilinogen (Auto) 0.2 mg/dL 01/12/25 16:05 Leukocyte Esterase (Auto) 0 Piyush/uL 01/12/25 16:05 Coding Level of Care Code Est Pt Level 4 (39839) Complex EM visit Add On G2211 Diagnoses Type 2 diabetes mellitus with hyperglycemia, without long-term current use of insulin E11.65 Diabetes mellitus type: type 2 Diabetes mellitus detention insulin use: without detention use Glucosuria R81 Assessment & Plan Assessment & Plan (1) Diabetes mellitus with hyperglycemia: Code(s): E11.65 - Type 2 diabetes mellitus with hyperglycemia Category: Medical Qualifiers: Diabetes mellitus type: type 2 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 Given her previous positive response to Trulicity and significant financial constraints, a new prescription for Trulicity 0.75 mg weekly will be sent to [facility]. She is to continue Actos and metformin. The patient was advised to call her insurance to confirm coverage for diabetes medications and to use [facility] to check for lower prices at different pharmacies. Other options, including Ozempic and daily injectable insulin via a pen, were also discussed. See her back for follow-up in May 2025 (2) Glucosuria: Code(s): R81 - Glycosuria Plan: Repeat urinalysis did not show any evidence of urinary tract infection, , but elevated glucose noted in urine stream stressed importance of getting diabetes mellitus controlled Orders: Orders AMB Urinalysis Automated 01/12/25 Z13.9 - Encounter for screening, unspecified Medications: New Trulicity (dulaglutide) 0.75 mg (0.5 mL) subcut QWEEK 2 mL 3RF NS
== END 2025-01-12 16:48 | disposition home or self-care (01) ==
LOC: HO.HMCC 15:47
PROVIDERS: PCP Internal Medicine; Visit Provider Internal Medicine
DX: Z13.9 Encounter for screening, unspecified (principal)

== ENCOUNTER → 2025-01-12 15:45 | Outpatient (BNVA) | payer MEDICARE, SELFPAY | PROVIDERS: PCP Internal Medicine; Visit Provider Internal Medicine | DX: E11.65 Type 2 diabetes mellitus with hyperglycemia (principal); R81 Glycosuria | CPT/HCPCS: 81003; 99212 ==

== ENCOUNTER 2025-02-27 14:10 | Emergency (ER) | payer MEDICARE, SELFPAY ==
--- NOTE | ~2025-02-27 | XR_ITS ---
CLINICAL HISTORY: fell pain, anterior shins 2 views right tibia-fibula Comparison: None Findings: No fractures or dislocations. No joint effusion. Mild knee joint degenerative changes are present. No radiopaque foreign body. Impression: 1. Normal right tibia-fibula. Single lateral view left tibia-fibula Comparison: None Findings: No fractures or dislocations. No joint effusion. No significant arthritic change. No radiopaque foreign body. Impression: 1. Unremarkable single lateral view left tibia-fibula. This document has been electronically signed by: Kd Figueroa MD on 02/27/2025 15:10:30
--- NOTE | ~2025-02-27 | XR_ITS ---
CLINICAL HISTORY: ttp over patella 4 views right knee Comparison: None Findings: No fractures or dislocations. No joint effusion. There is [id number] medial compartment as well as mild patellofemoral and minimal lateral compartment spurring. Faint chondrocalcinosis is present. No radiopaque foreign body. Impression: 1. No fracture or dislocation. Degenerative changes as described above. This document has been electronically signed by: Kd Figueroa MD on 02/27/2025 15:09:27
[2025-02-27 14:16] VITALS: BP 150/92; PULSE 60; O2SAT 98
--- NOTE | 2025-02-27 14:22 | ED.LOWEXIN ---
HPI - Extremity Injury (Lower) General Chief Complaint: Extremity Injury, Lower Stated Complaint: FALL TO HANDS/KNEES PER EMS Time Seen by Provider: 02/27/25 18:05 Source: patient, EMS and RN notes reviewed Mode of arrival: EMS Limitations: no limitations History of Present Illness ED Provider: Cesilia Tolentino PA-C HPI Narrative: Patient was BIBA for evaluation of knee pain s/p mechanical fall at home today. No head strike, able to get up and amb after, her brother called EMS. patient reports no new pain in hips, ankle or feet. No on any anticoagulation. Not treated at home. No assistive devices. No head stright or LOC. NO paresthesias. no prior sig injuries. No back pain. no bladder/bowel incontinence. Related Data Home Medications ?Medication ?Instructions ?Recorded ?Confirmed acetaminophen 325 mg capsule 325 mg PO QID PRN 10/17/20 01/17/25 (Tylenol) naproxen sodium 220 mg capsule 220 mg PO BID PRN 01/12/25 01/17/25 (Aleve) Previous Rx's ?Medication ?Instructions ?Recorded blood-glucose meter (OneTouch #1 ea 05/08/21 Verio Meter) metformin 1,000 mg tablet 1,000 mg PO BID #180 tabs 01/01/25 famotidine 40 mg tablet 40 mg PO DAILY #30 tabs 01/06/25 paroxetine HCl 30 mg tablet 30 mg PO QAM #90 tabs 01/06/25 pioglitazone 30 mg tablet 30 mg PO DAILY #30 tabs 01/06/25 blood sugar diagnostic (OneTouch #100 ea 01/07/25 Verio test strips) lancets 33 gauge #100 ea 01/07/25 Trulicity 0.75 mg/0.5 mL 0.75 mg (0.5 mL) subcut QWEEK #2 mL 01/12/25 subcutaneous pen injector (dulaglutide) gabapentin 100 mg capsule 100 mg PO BID 30 days #60 caps 02/01/25 lisinopril 10 mg tablet 10 mg PO DAILY #90 tabs 03/05/25 rosuvastatin 5 mg tablet 5 mg PO DAILY #90 tabs 03/05/25 Allergies Allergy/AdvReac Type Severity Reaction Status Date / Time amoxicillin (AMOXICILLIN) Allergy Intermediate RASH Verified 02/27/25 14:27 Penicillins (PENICILLINS) Allergy Intermediate RASH Verified 02/27/25 14:27 Sulfa (Sulfonamide Allergy Intermediate RASH, hives Verified 02/27/25 14:27 Antibiotics) (SULFA (SULFONAMIDE ANTIBIOTICS)) sulfamethoxazole (From Allergy Intermediate RASH Verified 02/27/25 14:27 BACTRIM) dapagliflozin (From Farxiga) AdvReac rash and Verified 02/27/25 14:27 diarrhea empagliflozin (From AdvReac Nausea Verified 02/27/25 14:27 Jardiance) nitrofurantoin (From AdvReac tachycardia Verified 02/27/25 14:27 Macrobid) Review of Systems Review of Systems: Yes all other systems are reviewed and are negative PMFSH Past Medical History Attestation statement: The following information was validated with the patient. Source: old records reviewed and nursing notes reviewed Medical History HTN (hypertension) History of vitamin D deficiency History of herpes zoster Morbid obesity GERD (gastroesophageal reflux disease) Influenza vaccination declined Diabetes mellitus with hyperglycemia PHN (postherpetic neuralgia) Internal and external hemorrhoids without complication Gastritis Varicose vein of leg IBS (irritable bowel syndrome) Carpal tunnel syndrome of left wrist Osteoarthritis Hyperlipidemia Surgical History History of carpal tunnel surgery Tubal ligation status H/O colonoscopy Family History Family History Father Esophageal cancer Alcoholism Mother Diabetes mellitus HTN (hypertension) CVA (cerebral vascular accident) Hyperlipidemia Sister Diabetes mellitus Social History Social History Household Members: Family Housing: House Alcohol intake: never Comment: sleeping Patient Tobacco Use Status: Never used Tobacco e-Cigarette/Vaping Use: Never Used Second Hand Smoke Exposure: No Advance Directives: Yes Advance Directives on File: Yes Advance Directives Date on File: 01/25/25 Do you have a plan to hurt others: No Plan service: No Current occupational status: employed 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 No septic or ill-appearing. Vitals reviewed normal, PMH/Social and Surgical hx reviewed including allergies and current medications. - reviewed for prior visits here Head: Normocephalic, no obvious trauma or skin lesions noted. Eyes: EOMI ENMT: moist oral mucosa Neck: trachea midline Cardiovascular: peripheral perfusion normal, Regular heart rate Respiratory: no respiratory distress Abdomen: nondistended Extremities: warm and moving without difficulty but ttp right patella and umro, left muro, distal joints freely movable, no ecchymosis, sensation intact, DTRs intact, cap refill < 3 secs, distal pulses 2+ Psych: Cooperative Neuro: Alert and oriented. Vital Signs: Vital Signs: Last Vital Signs Temp 97.0 F 02/27/25 18:17 Pulse 70 02/27/25 18:17 Resp 16 02/27/25 18:17 BP 142/84 H 02/27/25 18:17 Pulse Ox 94 02/27/25 18:17 O2 Del Method Room Air 02/27/25 18:17 BMI result Body Mass Index 39.6 Course Course Course Narrative: This is a RME preformed in triage by Cesilia Tolentino PA-C. Date: 02/27/2025, time 224pm. Patient presents via EMS, brought in for trip and fall onto knee. No head strike, able to get up and amb after, her brother called EMS. patient reports no new painin hips, ankle or feet. No on any anticoagulation. Not treated at home. No assistive devices. PE: ttp right patella and muro, left muro Work UP: XR right knee and b/l tib/fibs Will defer full ROS and PE to treating provider. Patient will continued to be monitored in the interim. Medical Decision Making Medical Decision Making MDM Narrative: Patient presents to ED today for evaluation of b/l lower leg pain (muro) and right knee pain . OUMAR is trip and fall onto knees . This is not work related. H and P as above. Patient is afebrile with stable vitals and well-appearing. History and physical as stated above. Patient is neurovascular intact in the affected extremity. X-rays were obtained to further evaluate. At this time no evidence of NVC to warrant further work up/ intervention or consult. They show no acute fractures. Patient's symptoms are consistent with a sprain and contusion. Patient?s knees were given chey wrap. Discussed icing it, elevating and alternating ibuprofen and Tylenol for discomfort. Discussed that there is no significant improvement in the next 1 to 2 weeks to follow-up with an orthopedic clinic, information given. Discussed symptomatic treatment with the patient. Discussed return precautions. Patient verbalized understanding of the above plan and is in agreement with the above plan. The patient was discharged home in stable condition with return precautions. Differential Diagnosis Differential Diagnoses: The differential diagnosis associated with the presentation includes See MDM Admission/Observation Consideration of admission/observation: Escalation of care including admission/observation considered Independent Interpretation I performed an independent interpretation of an: Plain X-Ray Interpretation: no fracture or dislocation Radiology Impression Discussion of test interpretation with radiology: I have reviewed the radiologist's reading. Independent Historian Clinical information obtained from an independent historian. History obtained from or confirmed by: EMS Prescription Management I considered prescription management with: Pain Medication Chronic Conditions Patient?s care impacted by: Other Social Determinants Patient?s care significantly limited by Social Determinants of Health including: Other Social Determinant of Health Discharge Plan Discharge Clinical Impression: Contusion of right knee and lower leg, Contusion of left leg Patient Disposition: Home, Self-Care Instructions: Contusion in Adults (ED) Additional Instructions: You have a contusion on lower legs from mechanical fall. Your imaging today did not show any acute fracture or dislocation. There is no evidence of neurovascular compromise. A contusion is a deep bruise. This is a result of an injury that causes bleeding under the skin. Symptoms of bruising include pain, swelling, and discolored skin. This skin may turn blue, purple, or yellow. To manage stiffness, pain, and swelling use RICE: rest, ice, compression, and elevation of affected area if possible. DO NOT PUT ICE directly onto skin, this can cause a burn. Instead, place ice in a plastic bag, and place a towel between the skin and the bag. Leave on for 20 minutes, 2-3 x a day. Take [id number] and/ or prescription medication as advised. Call or return right away if: pain worsens, numbness, or area turns pale or cold. Prescriptions: No Action (DME) blood-glucose meter [OneTouch Verio Meter] Misc See Rx Instructions .Route Qty: 1 0RF Rx Instructions: use to test blood sugar metformin 1,000 mg tablet 1,000 mg PO BID Qty: 180 1RF (DME) OneTouch Verio test strips Strip See Rx Instructions .Route Qty: 100 3RF Rx Instructions: test blood sugar daily (DME) lancets 33 gauge misc See Rx Instructions .Route Qty: 100 3RF Rx Instructions: Test blood sugar daily gabapentin 100 mg capsule 100 mg PO BID 30 Days Qty: 60 2RF lisinopril 10 mg tablet 10 mg PO DAILY Qty: 90 1RF rosuvastatin 5 mg tablet 5 mg PO DAILY Qty: 90 1RF acetaminophen [Tylenol] 325 mg capsule 325 mg PO QID PRN famotidine 40 mg tablet 40 mg PO DAILY Qty: 30 2RF paroxetine HCl 30 mg tablet 30 mg PO QAM Qty: 90 4RF pioglitazone 30 mg tablet 30 mg PO DAILY Qty: 30 5RF naproxen sodium [Aleve] 220 mg capsule 220 mg PO BID PRN Trulicity 0.75 mg/0.5 mL pen injector 0.75 mg subcut QWEEK Qty: 2 3RF Referrals: [facility] [place] Orthopedic Surgeons [Provider Group] Interventions: ED Discharge Assessment Last Done: 02/27/25 18:17 Discharge Date/Time: 02/27/25 18:29 Print Language: Japanese
[2025-02-27 14:24] VITALS: BP 142/84; PULSE 70; RESP 16; TEMP 36.1; O2SAT 94; BMI 39.6
[2025-02-27 18:17] VITALS: BP 142/84; PULSE 70; RESP 16; TEMP 36.1; O2SAT 94
== END 2025-02-27 18:29 | disposition home or self-care (01) ==
LOC: HO.ED 18:21
PROVIDERS: Emergency Provider Emergency Medicine; PCP Internal Medicine
DX: S80.12XA Contusion of left lower leg, initial encounter (principal); S80.01XA Contusion of right knee, initial encounter; M79.605 Pain in left leg; M79.604 Pain in right leg; I10 Essential (primary) hypertension; E11.9 Type 2 diabetes mellitus without complications; E66.9 Obesity, unspecified; Z68.39 Body mass index [BMI] 39.0-39.9, adult; W01.0XXA Fall on same level from slipping, tripping and stumbling without subsequent striking against object, initial encounter; Y93.89 Activity, other specified; Y92.89 Other specified places as the place of occurrence of the external cause; Y99.8 Other external cause status; Z79.899 Other long term (current) drug therapy; Z87.19 Personal history of other diseases of the digestive system
CPT/HCPCS: 73562; 73590; 99282; 99283